=== PATIENT | female | born 1950 | race African-American/Black ===

== ENCOUNTER 2017-12-01 14:32 | Inpatient (IN) | payer MEDICARE, OTHER ==
[~2017-12-01] VITALS: Ht 162.6 cm; Wt 75.8 kg
[2017-12-01] MEDS ORDERED: NORCO 7.5-3251 EACH ORAL (14:47)
[2017-12-01] MEDS ORDERED: ASPIR 8181 MG ORAL (14:47)
[2017-12-01] MEDS ORDERED: DOCUSATE SODIU100 MG ORAL (14:47)
[2017-12-01] MEDS ORDERED: SENSIPAR30 MG ORAL (14:47)
[2017-12-01] MEDS ORDERED: BENADRYL25 MG ORAL (14:47)
[2017-12-01] MEDS ORDERED: FAMOTIDINE20 MG ORAL (14:47)
[2017-12-01] MEDS ORDERED: AMLODIPINE BESYL5 MG ORAL (14:47)
[2017-12-01] MEDS ORDERED: ACETAMINOPHEN325 M1 ORAL (14:47)
[2017-12-01] MEDS ORDERED: NEPHROVITE1 TAB ORAL (14:47)
[2017-12-01] MEDS ORDERED: METOPROLOL SUCC25 MG ORAL (14:47)
[2017-12-01] MEDS ORDERED: SIMETHICONE80 MG ORAL (14:49)
[2017-12-01] MEDS ORDERED: RENAGEL800 MG ORAL (14:49)
[2017-12-01] MEDS ORDERED: SERTRALINE HCL50 MG ORAL (14:49)
[2017-12-01] MEDS ORDERED: TRAZODONE HCL50 MG ORAL (14:49)
--- NOTE | 2017-12-01 15:08 | Emergency Room Report ---
History of Present Illness General Chief Complaint: General Complaint Source: Medical Record Present Illness HPI Mrs. Garcia is a very pleasant female with history of blindness, COPD, asthma, depression ESRD on hemodialysis Tuesday who presents with compliction of AV fistula in left upper extremity. In September AV fistula was placed at [facility]. Hemodialysis nurse was utilized to access the AV fistula only a few times for dialysis. Consequently she now has bruising pain and swelling at the area. Pain is moderate in severity. She has been obtaining dialysis through right-sided chest vascath. She did has been a resident of [facility] since July. Allergies: Coded Allergies: No Known Allergies (Unverified , 12/01/17) Patient History Social History: Reports: smoking - stopped smoking 2 years ago, alcohol use - weekend drinker lifetime Social History Narrative retired warehouse processor, children are supportive Reviewed Nursing Documentation: PMH: Agreed; PSxH: Agreed Nursing Documentation-PMH Past Medical History: No History, Except For Hx Cardiac Problems: Yes - heart failure, Anemia, PVD, legal blindess Hx Hypertension: Yes - Hyperlipidemia Hx COPD: Yes - SOB Hx Diabetes: Yes Hx Gastrointestinal Problems: Yes - Liver disease History Of Psychiatric Problem: Yes - Major depression Review of Systems Constitutional: Denies: fever, malaise Cardiovascular: Denies: chest pain Gastrointestinal: Denies: abdominal pain Musculoskeletal: Reports: muscle pain - cramps after dialysis recently; Denies : back pain All Other Systems: negative except mentioned in HPI Physical Exam Vital Signs Date Time Temp Pulse Resp B/P (MAP) Pulse Ox O2 Delivery O2 Flow Rate FiO2 12/01/17 14:29 98.3 72 16 125/72 98 Nasal Cannula 2.0 98.2 Sp02 EP Interpretation: reviewed, normal General Appearance: no apparent distress, alert, GCS 15, non-toxic Head: normocephalic, atraumatic Eyes: bilateral eye other - left dense cataract right pupil irregular nonreactive ENT: hearing grossly normal, normal pharynx, no angioedema, normal voice Neck: full range of motion, supple/symm/no masses Respiratory: chest non-tender, lungs clear, normal breath sounds, no rhonchi, no respiratory distress, no retraction, no accessory muscle use, speaking full sentences Cardiovascular #1: regular rate, rhythm, no murmur, no rub Cardiovascular #2: 2+ carotid (R), 2+ carotid (L), 2+ radial (R), 2+ radial (L) , 2+ dorsalis pedis (R), 2+ dorsalis pedis (L) Gastrointestinal: normal bowel sounds, non tender, soft, non-distended, no guarding, no rebound Rectal: deferred Musculoskeletal: normal range of motion - FROM at left elbow, swelling, other - left bicep with tense swelling but compressible, diffuse bruising, pulsative, no thrill no bruit, 2+ radial pulse MUR intact distally, patient uses left arm fluidly pulsatilve , tender Neurologic: alert, oriented x3, responsive, motor strength/tone normal, sensory intact, speech normal Psychiatric: judgement/insight normal, memory normal, mood/affect normal, no suicidal/homicidal ideation Skin: normal color, no rash, warm/dry, well hydrated Lymphatic: no adenopathy Medical Decision Making Diagnostic Impression: Primary Impression: AV fistula occlusion Additional Impression: AV fistula infection ER Course Ms. Garcia presents with AV fistula complication. I discussed case with Dr. Encinas who is highly concerned for AV fistula infection considering patient has tenderness, warmth and swelling. He requested stat duplex US with revealed surrounding hematoma. However AV fistula is not clotted. Dr. Encinas will arrange vascular surgery consultation. Labs Test 12/01/17 15:20 White Blood Count 6.9 K/UL (4.8-10.8) Red Blood Count 4.26 M/UL (4.20-5.40) Hemoglobin 13.2 G/DL (12.0-16.0) Hematocrit 39.0 % (37.0-47.0) Mean Corpuscular Volume 91 FL (80-99) Mean Corpuscular Hemoglobin 30.9 PG (27.0-31.0) Mean Corpuscular Hemoglobin Concent 33.8 G/DL (32.0-36.0) Red Cell Distribution Width 15.5 % (11.6-14.8) Platelet Count 229 K/UL (150-450) Mean Platelet Volume 5.3 FL (6.5-10.1) Neutrophils (%) (Auto) 77.1 % (45.0-75.0) Lymphocytes (%) (Auto) 14.4 % (20.0-45.0) Monocytes (%) (Auto) 5.8 % (1.0-10.0) Eosinophils (%) (Auto) 0.5 % (0.0-3.0) Basophils (%) (Auto) 2.1 % (0.0-2.0) Prothrombin Time 10.5 SEC (9.30-11.50) Prothromb Time International Ratio 1.0 (0.9-1.1) Activated Partial Thromboplast Time 30 SEC (23-33) Sodium Level 137 MMOL/L (136-145) Potassium Level 5.2 MMOL/L (3.5-5.1) Chloride Level 99 MMOL/L (98-107) Carbon Dioxide Level 30 MMOL/L (21-32) Anion Gap 8 mmol/L (5-15) Blood Urea Nitrogen 52 mg/dL (7-18) Creatinine 6.9 MG/DL (0.55-1.30) Estimat Glomerular Filtration Rate 5.9 mL/min (>60) Glucose Level 121 MG/DL (74-106) Calcium Level 7.6 MG/DL (8.5-10.1) Last Vital Signs Date Time Temp Pulse Resp B/P (MAP) Pulse Ox O2 Delivery O2 Flow Rate FiO2 12/01/17 14:29 98.3 72 16 125/72 98 Nasal Cannula 2.0 98.2 Thelma Bahena MD Dec 01, 2017 15:08
[2017-12-01 15:28] VITALS: BP 133/63
[2017-12-01] MEDS ORDERED: Vancomycin 1.5gm/D5W 250ml 250 ML IVPB ONE (15:30)
[2017-12-01 15:50] LABS: BASOPHILS % (AUTO) 2.1 % (0.0-2.0); EOSINOPHILS % (AUTO) 0.5 % (0.0-3.0); HEMOGLOBIN 13.2 G/DL (12.0-16.0); LYMPHOCYTES % (AUTO) 14.4 % (20.0-45.0); MEAN CORPUSCULAR VOLUME 91 FL (80-99); MONOCYTES % (AUTO) 5.8 % (1.0-10.0); NEUTROPHILS % (AUTO) 77.1 % (45.0-75.0); PLATELET COUNT 229 K/UL (150-450); RED BLOOD COUNT 4.26 M/UL (4.20-5.40); RED CELL DISTRIBUTION WIDTH 15.5 % (11.6-14.8); WHITE BLOOD COUNT 6.9 K/UL (4.8-10.8)
[2017-12-01 16:06] LABS: ANION GAP 8 mmol/L (5-15); BLOOD UREA NITROGEN 52 mg/dL (7-18); CALCIUM 7.6 MG/DL (8.5-10.1); CARBON DIOXIDE 30 MMOL/L (21-32); CHLORIDE 99 MMOL/L (98-107); CREATININE 6.9 MG/DL (0.55-1.30); POTASSIUM 5.2 MMOL/L (3.5-5.1); SODIUM 137 MMOL/L (136-145)
[2017-12-01] MEDS ORDERED: oxyCODONE HCL/Acetaminophen 5/325mg ORAL ONE ×2 (17:18→17:30)
[2017-12-01 17:22] VITALS: BP 126/70
[2017-12-01] MEDS ORDERED: Acetaminophen 500mg (ES) tab ORAL PRN (18:30)
[2017-12-01] MEDS ORDERED: Simethicone 80mg tab ORAL PRN (18:30)
[2017-12-01 20:00] VITALS: BP 112/56
[2017-12-01] MEDS: TraZODone 50mg tab ORAL SCH (21:13)
[2017-12-01] MEDS: NovoLOG Insulin Flexpen SUBQ SCH (21:24)
[2017-12-01] MEDS: Heparin 5000 units/ml inj SUBQ SCH (21:25)
[2017-12-01] MEDS: Albuterol/Ipratropium 3ml neb HHN PRN (21:26)
[2017-12-01] MEDS: Piperacillin/Tazobactam 2.25 GM in D5W 55 ML IVPB SCH (21:29)
[2017-12-02] VITALS: BP 125/77
[2017-12-02 04:00] VITALS: BP 136/70
[2017-12-02] MEDS: oxyCODONE HCL/Acetaminophen 5/325mg ORAL PRN ×3 (05:44→22:59)
[2017-12-02] MEDS: Piperacillin/Tazobactam 2.25 GM in D5W 55 ML IVPB SCH ×3 (05:45→22:55)
[2017-12-02] MEDS: NovoLOG Insulin Flexpen SUBQ SCH ×4 (05:46→21:00)
[2017-12-02 08:00] VITALS: BP 139/79
[2017-12-02] MEDS: Albuterol/Ipratropium 3ml neb HHN PRN ×2 (08:06→21:23)
[2017-12-02] MEDS: Sertraline 50mg tab ORAL SCH (09:00)
[2017-12-02] MEDS: Docusate 100mg cap ORAL SCH ×2 (09:00→17:30)
[2017-12-02] MEDS: Sensipar 30mg Tab ORAL SCH (09:00)
[2017-12-02] MEDS: Metoprolol Succinate XL 25mg tab ORAL SCH (09:00)
[2017-12-02] MEDS: Aspirin EC 81mg tab ORAL SCH (09:00)
[2017-12-02] MEDS: Heparin 5000 units/ml inj SUBQ SCH ×2 (09:00→21:04)
[2017-12-02] MEDS: Nephrovite tab (Rena-Vite) ORAL SCH (09:00)
--- NOTE | 2017-12-02 11:57 | Infectious Diseases Prog Note ---
Assessment/Plan Assessment/Plan Full consult to follow: A) 1) ?left arm clotted fistula, ? occlusion, ? infection 2) pmh noted 3) allergies - nkda P) 1) vancomycin and zosyn 2) vascular surgery evaluation 3) check blood cultures 4) thank you 5) d/w Huang Subjective Allergies: Coded Allergies: No Known Allergies (Unverified , 12/01/17) Objective Vital Signs Last 24 Hour Vital Signs Date Time Temp Pulse Resp B/P (MAP) Pulse Ox O2 Delivery O2 Flow Rate FiO2 12/02/17 09:00 Room Air 12/02/17 08:17 75 20 98 Nasal Cannula 2.0 28 12/02/17 08:10 Nasal Cannula 2.0 28 12/02/17 08:09 98 Nasal Cannula 2.0 28 12/02/17 08:09 65 18 Nasal Cannula 2.0 28 12/02/17 08:06 65 16 98 Nasal Cannula 2.0 28 12/02/17 08:00 97.2 78 19 139/79 (99) 99 97.2 12/02/17 04:00 97.8 19 136/70 (92) 100 97.8 12/02/17 00:00 98.3 20 125/77 (93) 100 98.3 12/01/17 21:36 81 20 99 Nasal Cannula 2.0 28 12/01/17 21:26 88 20 98 Nasal Cannula 2.0 28 12/01/17 20:27 78 18 Nasal Cannula 2.0 28 12/01/17 20:26 98 Nasal Cannula 2.0 28 12/01/17 20:26 Nasal Cannula 2.0 28 12/01/17 20:00 97.5 19 112/56 (74) 100 97.5 12/01/17 19:09 Nasal Cannula 2.0 12/01/17 17:45 98.4 12/01/17 17:40 98.4 74 16 126/70 99 Nasal Cannula 2.0 98.4 12/01/17 17:22 98.4 74 16 126/70 99 Nasal Cannula 2.0 98.4 12/01/17 15:28 98.2 88 15 133/63 98 Nasal Cannula 2.0 98.2 12/01/17 14:29 98.3 72 16 125/72 98 Nasal Cannula 2.0 98.2 Height (Feet): 5 Height (Inches): 4.00 Weight (Pounds): 160 Laboratory Tests Test 12/01/17 15:20 12/02/17 08:30 White Blood Count 6.9 K/UL (4.8-10.8) Red Blood Count 4.26 M/UL (4.20-5.40) Hemoglobin 13.2 G/DL (12.0-16.0) Hematocrit 39.0 % (37.0-47.0) Mean Corpuscular Volume 91 FL (80-99) Mean Corpuscular Hemoglobin 30.9 PG (27.0-31.0) Mean Corpuscular Hemoglobin Concent 33.8 G/DL (32.0-36.0) Red Cell Distribution Width 15.5 % (11.6-14.8) H Platelet Count 229 K/UL (150-450) Mean Platelet Volume 5.3 FL (6.5-10.1) L Neutrophils (%) (Auto) 77.1 % (45.0-75.0) H Lymphocytes (%) (Auto) 14.4 % (20.0-45.0) L Monocytes (%) (Auto) 5.8 % (1.0-10.0) Eosinophils (%) (Auto) 0.5 % (0.0-3.0) Basophils (%) (Auto) 2.1 % (0.0-2.0) H Prothrombin Time 10.5 SEC (9.30-11.50) Prothromb Time International Ratio 1.0 (0.9-1.1) Activated Partial Thromboplast Time 30 SEC (23-33) Sodium Level 137 MMOL/L (136-145) Potassium Level 5.2 MMOL/L (3.5-5.1) H Chloride Level 99 MMOL/L (98-107) Carbon Dioxide Level 30 MMOL/L (21-32) Anion Gap 8 mmol/L (5-15) Blood Urea Nitrogen 52 mg/dL (7-18) H Creatinine 6.9 MG/DL (0.55-1.30) H Estimat Glomerular Filtration Rate 5.9 mL/min (>60) Glucose Level 121 MG/DL (74-106) H Calcium Level 7.6 MG/DL (8.5-10.1) L Random Vancomycin Level 12.0 ug/mL Current Medications Medications (Trade) Dose Ordered Sig/Parmjit Route PRN Reason Start Time Stop Time Status Last Admin Dose Admin Acetaminophen (Tylenol) 650 mg Q6H PRN ORAL Mild Pain / T> 100.5 12/01/17 18:30 12/31/17 18:29 12/02/17 11:05 Albuterol/ Ipratropium (Albuterol/ Ipratropium) 3 ml Q6H PRN HHN Shortness of Breath 12/01/17 18:30 12/06/17 18:29 12/02/17 08:06 Amlodipine Besylate (Norvasc) 5 mg DAILY ORAL 12/02/17 09:00 01/01/18 08:59 Aspirin (Ecotrin) 81 mg DAILY ORAL 12/02/17 09:00 01/01/18 08:59 Cinacalcet (Sensipar) 30 mg DAILY ORAL 12/02/17 09:00 01/01/18 08:59 Dextrose (Dextrose 50%) 25 ml STAT PRN IV Hypoglycemia 12/01/17 19:00 12/31/17 18:59 Dextrose (Dextrose 50%) 50 ml STAT PRN IV Hypoglycemia 12/01/17 19:00 12/31/17 18:59 Diphenhydramine HCl (Benadryl) 25 mg Q6H PRN ORAL Itching 12/01/17 18:30 12/31/17 18:29 12/01/17 21:26 Docusate Sodium (Colace) 100 mg TWICE A DAY ORAL 12/02/17 09:00 01/01/18 08:59 Famotidine (Pepcid) 20 mg DAILY ORAL 12/02/17 09:00 01/01/18 08:59 Heparin Sodium (Porcine) (Heparin 5000 units/ml) 5,000 units EVERY 12 HOURS SUBQ 12/01/17 21:00 12/31/17 20:59 12/01/17 21:25 Heparin Sodium (Porcine) (Heparin Sod 1000 units/ml 10ml) 500 unit ONCE PRN IV DIALYSIS 12/02/17 18:15 12/02/17 23:59 Heparin Sodium (Porcine) (Heparin) 1,000 unit POSTHD INJ 12/02/17 18:15 12/02/17 23:59 Insulin Aspart (NovoLOG) BEFORE MEALS AND HS SUBQ 12/01/17 21:00 12/31/17 20:59 12/01/17 21:24 Metoprolol Succinate (Toprol XL) 25 mg DAILY ORAL 12/02/17 09:00 01/01/18 08:59 Oxycodone/ Acetaminophen (Percocet 5-325) 1 tab Q6H PRN ORAL PAIN 4-10 12/01/17 19:00 12/08/17 18:59 12/02/17 05:44 Piperacillin Sod/ Tazobactam Sod 2.25 gm/Dextrose 55 ml @ 110 mls/hr Q8HR IVPB 12/01/17 20:00 12/08/17 19:59 12/02/17 05:45 Sertraline HCl (Zoloft) 50 mg DAILY ORAL 12/02/17 09:00 01/01/18 08:59 Simethicone (Mylicon) 80 mg Q8H PRN ORAL GAS PAIN 12/01/17 18:30 12/31/17 18:29 Sodium Chloride 1,000 ml @ 500 mls/hr Q2H PRN IVLG sbp<90 during hd 12/02/17 18:14 12/02/17 23:59 Trazodone HCl (Desyrel) 50 mg BEDTIME ORAL 12/01/17 21:00 12/31/17 20:59 12/01/17 21:13 Vancomycin HCl (Vanco rx to dose) 1 ea DAILY PRN MISC Per rx protocol 12/01/17 18:30 12/31/17 18:29 Vitamin B Complex/ Vit C/Folic Acid (Nephrovite) 1 tab DAILY ORAL 12/02/17 09:00 01/01/18 08:59 Mynor Esteves MD Dec 02, 2017 11:57
[2017-12-02 12:00] VITALS: BP 136/77
[2017-12-02] MEDS ORDERED: Vancomycin 1gm in D5W 275ml IVPB ONE (14:00)
--- NOTE | 2017-12-02 15:45 | History and Physical Report ---
DATE OF ADMISSION: 12/01/2017 CHIEF COMPLAINT: Painful left upper arm. HISTORY OF PRESENT ILLNESS: This is an unfortunate 67-year-old female on dialysis. The patient has left upper arm AV fistula that has hematoma. During the last several weeks, the patient's hematoma has increased in size and became extremely painful and tender to touch. The patient is admitted for further evaluation and management. She had already ultrasound duplex done in the emergency department revealing huge hematoma and suspected infection of that site. PAST MEDICAL HISTORY: 1. End-stage renal failure due to diabetic nephropathy. 2. Blindness due to diabetic retinopathy. 3. Hypertensive cardiovascular disease. 4. COPD. 5. Congestive heart failure. 6. Anemia of chronic kidney disease. 7. Recurrent ascites due to alcoholic liver cirrhosis. MEDICATIONS: Tylenol p.r.n., amlodipine, baby aspirin, Sensipar, Benadryl p.r.n., sodium docusate, DuoNeb inhalation, famotidine, insulin sliding scale, metoprolol XL, Nephro-Melinda, Percocet, simethicone p.r.n., Zoloft, and trazodone. ALLERGIES: None reported. FAMILY HISTORY: Unremarkable. SOCIAL HISTORY: She lives in a shelter. HABITS: She is nonsmoker and nondrinker. There is no history of illicit drug abuse. REVIEW OF SYSTEMS: HEENT: She is blind. ENDOCRINE: Significant for multiorgan type 2 diabetes mellitus with diabetic retinopathy, nephropathy, neuropathy, and gastropathy. She also has severe secondary hyperparathyroidism. NEUROLOGIC: No history of stroke or syncope. CARDIAC: She has history of congestive heart failure. PHYSICAL EXAMINATION: GENERAL: This is an elderly pleasant female, who is in no acute distress. VITAL SIGNS: Blood pressure 150/70, pulse 80 and regular, respirations 20, and temperature 97.8. HEENT: The head is normocephalic and atraumatic. She is blind. NECK: Supple. Trachea midline. There was no lymphadenopathy or thyromegaly. LUNGS: Bilateral wheezes. HEART: Regular rate and rhythm without rubs, murmurs, or gallops. CHEST: She has right-sided internal jugular PermCath. ABDOMEN: She has some fullness and suspected ascites. She has hepatomegaly. EXTREMITIES: No clubbing, cyanosis, or edema. The left upper arm AV fistula a huge hematoma tender to touch. There is a thrill and bruit. NEUROLOGIC: She is alert and oriented x4. Cranial nerves II through XII intact except the optic nerve. LABORATORY AND ANCILLARY DATA: CBC within normal limits. Chemistry, BUN 52 and creatinine 6.9, potassium yesterday 5.2, and sodium 137. ASSESSMENT: 1. Infected large a hematoma below the patient's AV fistula causing a pushup of the patient's fistula in the arterial anastomosis narrowing, close to choking. 2. End-stage renal failure due to diabetic nephropathy. 3. Blindness due to diabetic retinopathy. 4. Hypertensive cardiovascular disease. 5. COPD. 6. Congestive heart failure. 7. Anemia of chronic kidney disease. 8. Recurrent ascites due to alcoholic liver cirrhosis. PLAN: 1. IV antibiotics. 2. Vascular surgery consult, the patient most likely needs drainage of the hematoma. 3. Hemodialysis to be done on the patient's schedule, which is Tuesday, Tuesday, and Tuesday. 4. Pain control. 5. Drainage of the ascites, which the patient does have ascites. Madison Sifuentes M.D. DR: GENOVEVA JOB#: [id number] CC:
[2017-12-02 16:00] VITALS: BP 137/79
[2017-12-02] MEDS ORDERED: Sertraline 50mg tab ORAL SCH (17:30)
[2017-12-02] MEDS ORDERED: Heparin Sod 1000 units/ml 10ml IV PRN (18:15)
[2017-12-02] MEDS ORDERED: Heparin 1000 units/ml 1ml Vial INJ SCH (18:15)
[2017-12-02 20:00] VITALS: BP 149/80
[2017-12-02] MEDS: TraZODone 50mg tab ORAL SCH (20:59)
[2017-12-03] VITALS: BP 134/68
--- NOTE | 2017-12-03 01:54 | General Progress Note ---
Progress Note Progress Note All noted Patient seen and examined ESRD on HD DM HTN Blindness Left arm avf large hematoma--from access site extravasation--looks much improved compared to last wk + thrill/ skin c/d/i/ + radial pulse/ no forearm edema Autogenous basilic vein transposition fistula & no artificial graft Right chest permcath c/d/i No fever and nl wbc Rec Rest left arm avf 3wks then will do fistulogram AVF duplex eval for pseudo Ice pack prn over hematoma HD via permcath Ok for discharge per vascular point and will f/u as outpt d/w pt at length d/w nurse at bedside d/w pmd Amarjit Dyson MD Dec 03, 2017 01:54
[2017-12-03 04:00] VITALS: BP 133/71
[2017-12-03] MEDS: Piperacillin/Tazobactam 2.25 GM in D5W 55 ML IVPB SCH ×3 (05:57→21:19)
[2017-12-03] MEDS: NovoLOG Insulin Flexpen SUBQ SCH ×4 (06:30→21:00)
[2017-12-03] MEDS ORDERED: cefTRIAXone 1 GM in D5W 55 ML IVPB SCH (06:45)
[2017-12-03 08:00] VITALS: BP 135/80
[2017-12-03] MEDS: oxyCODONE HCL/Acetaminophen 5/325mg ORAL PRN ×2 (08:31→21:19)
[2017-12-03] MEDS: Sertraline 50mg tab ORAL SCH (08:31)
[2017-12-03] MEDS: Aspirin EC 81mg tab ORAL SCH (08:31)
[2017-12-03] MEDS: Metoprolol Succinate XL 25mg tab ORAL SCH (08:31)
[2017-12-03] MEDS: Nephrovite tab (Rena-Vite) ORAL SCH (08:31)
[2017-12-03] MEDS: Sensipar 30mg Tab ORAL SCH (08:32)
[2017-12-03] MEDS: Docusate 100mg cap ORAL SCH ×2 (08:32→18:52)
[2017-12-03] MEDS: Heparin 5000 units/ml inj SUBQ SCH ×2 (08:41→21:15)
[2017-12-03 08:48] LABS: BASOPHILS % (AUTO) 1.5 % (0.0-2.0); EOSINOPHILS % (AUTO) 3.4 % (0.0-3.0); HEMATOCRIT 39.1 % (37.0-47.0); HEMOGLOBIN 12.9 G/DL (12.0-16.0); LYMPHOCYTES % (AUTO) 39.5 % (20.0-45.0); MEAN CORPUSCULAR VOLUME 92 FL (80-99); MONOCYTES % (AUTO) 10.2 % (1.0-10.0); NEUTROPHILS % (AUTO) 45.5 % (45.0-75.0); PLATELET COUNT 203 K/UL (150-450); RED BLOOD COUNT 4.26 M/UL (4.20-5.40); WHITE BLOOD COUNT 6.7 K/UL (4.8-10.8)
[2017-12-03] MEDS ORDERED: Heparin 5000 units/ml inj SUBQ SCH (09:00)
[2017-12-03 09:12] LABS: ALANINE AMINOTRANSFERASE 81 U/L (12-78); ALBUMIN 2.8 G/DL (3.4-5.0); ALBUMIN/GLOBULIN RATIO 0.7 (1.0-2.7); ALKALINE PHOSPHATASE 81 U/L (46-116); ANION GAP 16 mmol/L (5-15); ASPARTATE AMINO TRANSFERASE 75 U/L (15-37); BILIRUBIN,TOTAL 0.4 MG/DL (0.2-1.0); BLOOD UREA NITROGEN 60 mg/dL (7-18); CALCIUM 7.8 MG/DL (8.5-10.1); CARBON DIOXIDE 20 MMOL/L (21-32); CHLORIDE 97 MMOL/L (98-107); CREATININE 7.5 MG/DL (0.55-1.30); POTASSIUM 5.7 MMOL/L (3.5-5.1); SODIUM 133 MMOL/L (136-145)
--- NOTE | 2017-12-03 11:00 | Nephrology Progress Note ---
Assessment/Plan Plan Duplex scan now shows the hematoma much bigger. DW Dr. Dyson - "nothing to do". I would keep her another 24 h. BC results are preliminarily negative. Last HD yesterday. Her K already 5.7 despite HD yesterday. m/p resoption of the K from hematoma. May need repeat HD tomorrow. Check Labs tomorrow. Subjective Subjective No c/o Objective Objective Last 24 Hour Vital Signs Date Time Temp Pulse Resp B/P (MAP) Pulse Ox O2 Delivery O2 Flow Rate FiO2 12/03/17 09:00 Room Air 12/03/17 08:31 87 135/80 12/03/17 08:31 87 135/80 12/03/17 08:00 97.3 87 18 135/80 (98) 97 97.3 12/03/17 04:00 97.5 72 19 133/71 (91) 100 97.5 12/03/17 00:00 97.8 81 19 134/68 (90) 100 97.8 12/02/17 23:29 98.3 12/02/17 22:59 98.3 12/02/17 21:22 79 20 98 Nasal Cannula 2.0 28 12/02/17 21:14 78 18 98 Nasal Cannula 2.0 28 12/02/17 21:00 Room Air 12/02/17 20:00 98.3 74 19 149/80 (103) 100 98.3 12/02/17 19:02 98 Nasal Cannula 2.0 28 12/02/17 19:02 67 18 Nasal Cannula 2.0 28 12/02/17 19:02 Nasal Cannula 2.0 28 12/02/17 16:00 97.7 77 19 137/79 (98) 100 97.7 12/02/17 12:00 97.3 78 20 136/77 (96) 100 97.3 Intake and Output 12/02/17 12/03/17 19:00 07:00 Intake Total 1080 ml 55 ml Balance 1080 ml 55 ml Intake Oral 1080 ml IV Total 55 ml # Voids 3 Laboratory Tests 12/03/17 07:05: White Blood Count 6.7, Red Blood Count 4.26, Hemoglobin 12.9, Hematocrit 39.1, Mean Corpuscular Volume 92, Mean Corpuscular Hemoglobin 30.3, Mean Corpuscular Hemoglobin Concent 33.0, Red Cell Distribution Width 15.0H, Platelet Count 203, Mean Platelet Volume 5.4L, Neutrophils (%) (Auto) 45.5, Lymphocytes (%) (Auto) 39.5, Monocytes (%) (Auto) 10.2H, Eosinophils (%) (Auto) 3.4H, Basophils (%) ( Auto) 1.5, Sodium Level 133L, Potassium Level 5.7H, Chloride Level 97L, Carbon Dioxide Level 20L, Anion Gap 16H, Blood Urea Nitrogen 60H, Creatinine 7.5H, Estimat Glomerular Filtration Rate 6.5, Glucose Level 76, Calcium Level 7.8L, Total Bilirubin 0.4, Aspartate Amino Transf (AST/SGOT) 75H, Alanine Aminotransferase (ALT/SGPT) 81H, Alkaline Phosphatase 81, Total Protein 7.1, Albumin 2.8L, Globulin 4.3, Albumin/Globulin Ratio 0.7L Height (Feet): 5 Height (Inches): 4.00 Weight (Pounds): 162 Objective Blind CV RR Lungs CTa Abd SNT BS + E IKE Hematoma exquisitely tender Madison Sifuentes MD Dec 03, 2017 10:59
[2017-12-03] MEDS: Albuterol/Ipratropium 3ml neb HHN PRN ×2 (11:44→20:35)
[2017-12-03 12:00] VITALS: BP 128/78
[2017-12-03 15:59] VITALS: BP 127/69
[2017-12-03] MEDS: Acetaminophen 500mg (ES) tab ORAL PRN (16:49)
--- NOTE | 2017-12-03 16:56 | Infectious Diseases Prog Note ---
Assessment/Plan Assessment/Plan Full consult to follow: A) 1) ? left arm infected hematoma/fistula/cellulitis ?left arm clotted fistula , ? occlusion, 2) pmh noted 3) allergies - nkda P) 1) vancomycin and zosyn 2) vascular surgery evaluation 3) check blood cultures final, negative so far 4) will f/u Subjective Constitutional: Denies: fever HEENT: Denies: congestion Cardiovascular: Denies: chest pain Gastrointestinal/Abdominal: Denies: nausea, vomiting Neurologic: Denies: headache Psychiatric: Denies: depression Skin: Denies: rash Allergies: Coded Allergies: No Known Allergies (Unverified , 12/01/17) Objective Vital Signs Last 24 Hour Vital Signs Date Time Temp Pulse Resp B/P (MAP) Pulse Ox O2 Delivery O2 Flow Rate FiO2 12/03/17 15:59 97.3 79 20 127/69 (88) 99 97.3 12/03/17 12:00 98.2 74 20 128/78 (95) 99 98.2 12/03/17 11:46 76 20 99 Nasal Cannula 2.0 28 12/03/17 11:46 74 20 99 Nasal Cannula 2.0 28 12/03/17 11:45 74 20 Nasal Cannula 2.0 28 12/03/17 11:45 98 Nasal Cannula 2.0 28 12/03/17 11:45 Nasal Cannula 2.0 28 12/03/17 09:00 Room Air 12/03/17 08:31 87 135/80 12/03/17 08:31 87 135/80 12/03/17 08:00 97.3 87 18 135/80 (98) 97 97.3 12/03/17 04:00 97.5 72 19 133/71 (91) 100 97.5 12/03/17 00:00 97.8 81 19 134/68 (90) 100 97.8 12/02/17 23:29 98.3 12/02/17 22:59 98.3 12/02/17 21:22 79 20 98 Nasal Cannula 2.0 28 12/02/17 21:14 78 18 98 Nasal Cannula 2.0 28 12/02/17 21:00 Room Air 12/02/17 20:00 98.3 74 19 149/80 (103) 100 98.3 12/02/17 19:02 98 Nasal Cannula 2.0 28 12/02/17 19:02 67 18 Nasal Cannula 2.0 28 12/02/17 19:02 Nasal Cannula 2.0 28 Height (Feet): 5 Height (Inches): 4.00 Weight (Pounds): 165 General Appearance: no acute distress HEENT: normocephalic, atraumatic, anicteric, mucous membranes moist Respiratory/Chest: lungs clear, normal breath sounds, no respiratory distress Cardiovascular: normal rate, regular rhythm, no gallop/murmur Abdomen: normal bowel sounds, soft, non tender, no organomegaly Extremities: other - left arm pain at fistula site with warmth Microbiology Date/Time Source Procedure Growth Status 12/01/17 15:30 Blood Blood Culture - Preliminary NO GROWTH AFTER 24 HOURS Resulted 12/01/17 15:20 Blood Blood Culture - Preliminary NO GROWTH AFTER 24 HOURS Resulted 12/01/17 16:00 Nasal Nares MRSA Culture - Final NO METHICILLIN RESISTANT STAPH AUREUS... Complete 12/01/17 16:00 Rectum VRE Culture - Final Enterococcus Faecalis - Vre Complete 12/01/17 16:00 Rectum - Final NO CARBAPENEM-RESISTANT ENTEROBACTERI... Complete Laboratory Tests Test 12/03/17 07:05 White Blood Count 6.7 K/UL (4.8-10.8) Red Blood Count 4.26 M/UL (4.20-5.40) Hemoglobin 12.9 G/DL (12.0-16.0) Hematocrit 39.1 % (37.0-47.0) Mean Corpuscular Volume 92 FL (80-99) Mean Corpuscular Hemoglobin 30.3 PG (27.0-31.0) Mean Corpuscular Hemoglobin Concent 33.0 G/DL (32.0-36.0) Red Cell Distribution Width 15.0 % (11.6-14.8) H Platelet Count 203 K/UL (150-450) Mean Platelet Volume 5.4 FL (6.5-10.1) L Neutrophils (%) (Auto) 45.5 % (45.0-75.0) Lymphocytes (%) (Auto) 39.5 % (20.0-45.0) Monocytes (%) (Auto) 10.2 % (1.0-10.0) H Eosinophils (%) (Auto) 3.4 % (0.0-3.0) H Basophils (%) (Auto) 1.5 % (0.0-2.0) Sodium Level 133 MMOL/L (136-145) L Potassium Level 5.7 MMOL/L (3.5-5.1) H Chloride Level 97 MMOL/L (98-107) L Carbon Dioxide Level 20 MMOL/L (21-32) L Anion Gap 16 mmol/L (5-15) H Blood Urea Nitrogen 60 mg/dL (7-18) H Creatinine 7.5 MG/DL (0.55-1.30) H Estimat Glomerular Filtration Rate 6.5 mL/min (>60) Glucose Level 76 MG/DL (74-106) Calcium Level 7.8 MG/DL (8.5-10.1) L Total Bilirubin 0.4 MG/DL (0.2-1.0) Aspartate Amino Transf (AST/SGOT) 75 U/L (15-37) H Alanine Aminotransferase (ALT/SGPT) 81 U/L (12-78) H Alkaline Phosphatase 81 U/L (46-116) Total Protein 7.1 G/DL (6.4-8.2) Albumin 2.8 G/DL (3.4-5.0) L Globulin 4.3 g/dL Albumin/Globulin Ratio 0.7 (1.0-2.7) L Current Medications Medications (Trade) Dose Ordered Sig/Parmjit Route PRN Reason Start Time Stop Time Status Last Admin Dose Admin Acetaminophen (Tylenol) 500 mg Q6H PRN ORAL Mild Pain/Temp > 100.5 12/03/17 08:00 01/02/18 07:59 12/03/17 16:49 Albuterol/ Ipratropium (Albuterol/ Ipratropium) 3 ml Q6H PRN HHN Shortness of Breath 12/01/17 18:30 12/06/17 18:29 12/03/17 11:44 Amlodipine Besylate (Norvasc) 5 mg DAILY ORAL 12/02/17 09:00 01/01/18 08:59 12/03/17 08:31 Aspirin (Ecotrin) 81 mg DAILY ORAL 12/02/17 09:00 01/01/18 08:59 12/03/17 08:31 Cinacalcet (Sensipar) 30 mg DAILY ORAL 12/02/17 09:00 01/01/18 08:59 12/03/17 08:32 Dextrose (Dextrose 50%) 25 ml STAT PRN IV Hypoglycemia 12/01/17 19:00 12/31/17 18:59 Dextrose (Dextrose 50%) 50 ml STAT PRN IV Hypoglycemia 12/01/17 19:00 12/31/17 18:59 Diphenhydramine HCl (Benadryl) 25 mg Q6H PRN ORAL Itching 12/01/17 18:30 12/31/17 18:29 12/03/17 08:30 Docusate Sodium (Colace) 100 mg TWICE A DAY ORAL 12/02/17 09:00 01/01/18 08:59 12/03/17 08:32 Famotidine (Pepcid) 20 mg DAILY ORAL 12/02/17 09:00 01/01/18 08:59 12/03/17 08:31 Heparin Sodium (Porcine) (Heparin 5000 units/ml) 5,000 units EVERY 12 HOURS SUBQ 12/03/17 09:00 01/02/18 08:59 12/03/17 08:41 Heparin Sodium (Porcine) (Heparin Sod 1000 units/ml 10ml) 500 unit ONCE PRN IV for HD use 12/04/17 06:00 12/04/17 23:59 Heparin Sodium (Porcine) (Heparin) 1,000 unit POSTHD PRN INJ for dialysis use 12/04/17 06:00 12/04/17 23:59 Insulin Aspart (NovoLOG) BEFORE MEALS AND HS SUBQ 12/01/17 21:00 12/31/17 20:59 12/01/17 21:24 Metoprolol Succinate (Toprol XL) 25 mg DAILY ORAL 12/02/17 09:00 01/01/18 08:59 12/03/17 08:31 Oxycodone/ Acetaminophen (Percocet 5-325) 1 tab Q6H PRN ORAL PAIN 4-10 12/01/17 19:00 12/08/17 18:59 12/03/17 08:31 Piperacillin Sod/ Tazobactam Sod 2.25 gm/Dextrose 55 ml @ 110 mls/hr Q8HR IVPB 12/01/17 20:00 12/08/17 19:59 12/03/17 14:30 Sertraline HCl (Zoloft) 50 mg DAILY ORAL 12/02/17 09:00 01/01/18 08:59 12/03/17 08:31 Simethicone (Mylicon) 80 mg Q8H PRN ORAL GAS PAIN 12/01/17 18:30 12/31/17 18:29 Sodium Chloride 1,000 ml @ 500 mls/hr Q2H PRN IVLG sbp<90 during hd 12/04/17 06:00 12/04/17 23:59 Trazodone HCl (Desyrel) 50 mg BEDTIME ORAL 12/01/17 21:00 12/31/17 20:59 12/02/17 20:59 Vancomycin HCl (Vanco rx to dose) 1 ea DAILY PRN MISC Per rx protocol 12/01/17 18:30 12/31/17 18:29 Vitamin B Complex/ Vit C/Folic Acid (Nephrovite) 1 tab DAILY ORAL 12/02/17 09:00 01/01/18 08:59 12/03/17 08:31 Mynor Esteves MD Dec 03, 2017 16:56
[2017-12-03] MEDS ORDERED: Milk of Magnesia 30ml Ud ORAL PRN (17:45)
[2017-12-03] MEDS ORDERED: Tubing IV Secondary IV ONE (18:38)
[2017-12-03 20:00] VITALS: BP 118/65
--- NOTE | 2017-12-03 20:45 | Consultation ---
DATE OF CONSULTATION: 12/03/2017 INFECTIOUS DISEASES CONSULTATION CONSULTING PHYSICIAN: Mynor Esteves M.D. ATTENDING PHYSICIAN: Madison Sifuentes M.D. REASON FOR CONSULTATION: Possible left arm infected hematoma/fistula infection and cellulitis. CHIEF COMPLAINT: The patient's chief complaint coming into the hospital is left arm pain and clotted fistula. HISTORY OF PRESENT ILLNESS: This is a very pleasant 67-year-old female, who comes in to [facility] with left arm pain. The patient has a hematoma that increased in size. Questionable if the patient has an infected hematoma, it is unclear if the fistula is infected with possible cellulitis and infected arm. Infectious Diseases consultation requested. The patient is on vancomycin and Zosyn. Blood cultures are negative today. Vascular surgery has also been consulted at this time. Hematoma seems much improved versus last week and conservative management for now. Blood culture are negative today. The patient will be continued on vancomycin and Zosyn. MAR was noted. Orders were noted. Notes were reviewed. REVIEW OF SYSTEMS: CONSTITUTIONAL: The patient has generalized fatigue. No focal weakness. She has left arm pain. She has no fever or chills. No night sweats or weight loss. HEAD AND NECK: No head pain, neck pain, thrush, dysphagia, sinus tenderness, neck stiffness. CARDIAC: No chest pain or palpitations. GASTROINTESTINAL: No nausea, vomiting, or diarrhea. GENITOURINARY: She is on hemodialysis, left arm fistula. No CVA tenderness. PULMONARY: No congestion, shortness of breath, hemoptysis, or secretions. SKIN: No rash. EXTREMITIES: She has left arm pain. NEUROLOGIC: No seizures PAST MEDICAL HISTORY: The patient's past medical history includes history of the following. The patient has past medical history of end-stage renal disease on hemodialysis, history of diabetic nephropathy, history of blindness, history of diabetic retinopathy, history of hypertension, history of hypertensive cardiovascular disease, history of COPD, CHF, anemia, history of recurrent ascites due to alcoholic liver cirrhosis, history of cirrhosis, history of left arm hematoma, history of diabetes and hypertension. MEDICATIONS: Upon the reviewing the MAR, she is on following medications. She is on heparin, acetaminophen, amlodipine, aspirin, docusate, famotidine, metoprolol, sertraline, vancomycin, Zosyn, trazodone, insulin, diphenhydramine, albuterol, vancomycin, Mylicon, Norvasc or amlodipine, aspirin. Antibiotics, vancomycin and Zosyn. Outside medications noted and reconciliated. ALLERGIES: No known drug allergies. No antibiotic allergies. SOCIAL HISTORY: Negative for smoking, alcohol, or drug abuse at this time. FAMILY HISTORY: Noncontributory. Negative for exposure to tuberculosis or cancer. PHYSICAL EXAMINATION: VITAL SIGNS: Temperature 97.3, pulse rate 79, respiratory rate 20, blood pressure is 127/69, and saturation 99%. GENERAL: Alert and responsive, no acute distress. HEAD AND NECK: Oral exam, no thrush. Eye exam, no icterus. Neck is supple. No JVD. Normocephalic. LUNGS: Clear bilaterally. No rhonchi or rales HEART: Regular. No gallop or murmur. ABDOMEN: Soft. Positive bowel sounds. Nontender. SKIN: No rash. MUSCULOSKELETAL: No effusions. Legs are without cellulitis. PERIPHERAL VASCULAR: No cyanosis or gangrene. GENITOURINARY: No Kamara. LINES: Line sites without phlebitis. Left arm has warmth, swelling, pain on palpation of the left arm fistula site. LABORATORY AND DIAGNOSTIC DATA: White count 6.7, hemoglobin 12.9. Creatinine 7.5. LFTs were noted. Blood cultures are negative to date at 24 hours, this is a preliminary result. VRE screen is positive. Imaging studies are pending, results are pending at this time. Blood cultures are negative to date. VRE swab is positive. ASSESSMENT AND PLAN: 1. The patient has left arm hematoma, has pain, rule out infected hematoma adjacent to fistula, rule out infected fistula, rule out cellulitis of the left arm. Continue vancomycin and Zosyn for MRSA gram-negative coverage for possible left arm infected hematoma, fistula infection, and cellulitis. The patient is being followed by Vascular Surgery. We will followup blood cultures. Vascular Surgery follow up. Case was discussed with Dr. Machado. Continue vancomycin and Zosyn for now, pending results. Check final blood cultures and laboratories. 2. The patient has end-stage renal disease, on hemodialysis. 3. Diabetes with retinopathy and nephropathy. 4. Hypertension with hypertensive cardiovascular disease. 5. COPD. 6. CHF. 7. Anemia of chronic kidney disease. 8. Recurrent ascites. 9. Alcoholic liver cirrhosis. 10. Past medical history noted. 11. No known drug allergies. 12. Social history at this time is negative for smoking, alcohol, or drug abuse. 13. Family history at this time is negative for exposure to tuberculosis or cancer, unremarkable. 14. MAR was noted. 15. Case discussed with RN. 16. Case discussed with Dr. Sifuentes. 17. Case discussed with the patient. 18. Continue treatment with primary consultants. 19. Notes and records were noted. 20. Orders were entered. Mynor Esteves M.D. DR: Vijay JOB#: [id number] CC: CHERYL
[2017-12-03] MEDS: TraZODone 50mg tab ORAL SCH (21:05)
[2017-12-04] VITALS: BP 130/60
[2017-12-04 04:00] VITALS: BP 120/65
[2017-12-04] MEDS: Piperacillin/Tazobactam 2.25 GM in D5W 55 ML IVPB SCH ×2 (05:08→17:44)
[2017-12-04] MEDS ORDERED: Heparin 1000 units/ml 1ml Vial INJ PRN (06:00)
[2017-12-04] MEDS ORDERED: Heparin Sod 1000 units/ml 10ml IV PRN (06:00)
[2017-12-04] MEDS: NovoLOG Insulin Flexpen SUBQ SCH ×4 (06:30→21:00)
[2017-12-04 07:09] LABS: BASOPHILS % (AUTO) 1.8 % (0.0-2.0); HEMATOCRIT 36.5 % (37.0-47.0); HEMOGLOBIN 11.8 G/DL (12.0-16.0); LYMPHOCYTES % (AUTO) 32.5 % (20.0-45.0); MEAN CORPUSCULAR VOLUME 92 FL (80-99); MONOCYTES % (AUTO) 13.1 % (1.0-10.0); NEUTROPHILS % (AUTO) 49.7 % (45.0-75.0); PLATELET COUNT 189 K/UL (150-450); RED BLOOD COUNT 3.99 M/UL (4.20-5.40); RED CELL DISTRIBUTION WIDTH 14.8 % (11.6-14.8)
[2017-12-04 08:00] VITALS: BP 115/54
[2017-12-04] MEDS: Nephrovite tab (Rena-Vite) ORAL SCH (08:39)
[2017-12-04] MEDS: Sensipar 30mg Tab ORAL SCH (08:39)
[2017-12-04] MEDS: oxyCODONE HCL/Acetaminophen 5/325mg ORAL PRN (08:40)
[2017-12-04] MEDS: Sertraline 50mg tab ORAL SCH (08:40)
[2017-12-04] MEDS: Aspirin EC 81mg tab ORAL SCH (08:40)
[2017-12-04] MEDS: Heparin 5000 units/ml inj SUBQ SCH ×2 (08:41→21:14)
[2017-12-04] MEDS: Docusate 100mg cap ORAL SCH ×2 (08:42→17:06)
[2017-12-04] MEDS: Metoprolol Succinate XL 25mg tab ORAL SCH (08:55)
--- NOTE | 2017-12-04 10:08 | Nephrology Progress Note ---
Assessment/Plan Plan Duplex scan now shows the hematoma much bigger. DW Dr. Dyson - not impressed. I would keep her another 24 h. BC results are preliminarily negative. Last HD yesterday. Her K already 5.7 despite HD yesterday. m/p resoption of the K from hematoma. May need repeat HD tomorrow. K 7.1 today!! Getting stat HD Subjective Subjective c/o Nausea!!! Objective Objective Last 24 Hour Vital Signs Date Time Temp Pulse Resp B/P (MAP) Pulse Ox O2 Delivery O2 Flow Rate FiO2 12/04/17 09:00 Room Air 12/04/17 08:55 79 115/54 12/04/17 08:54 79 115/54 12/04/17 07:39 78 18 Nasal Cannula 2.0 28 12/04/17 07:38 96 Nasal Cannula 2.0 28 12/04/17 07:37 Nasal Cannula 2.0 28 12/04/17 04:30 98.9 98.9 12/04/17 04:00 100.9 79 20 120/65 (83) 98 100.9 12/04/17 00:00 97.7 85 19 130/60 (83) 100 97.7 12/03/17 21:49 99.5 12/03/17 21:19 99.5 12/03/17 20:51 Room Air 12/03/17 20:45 83 20 99 Nasal Cannula 2.0 28 12/03/17 20:35 99 Nasal Cannula 2.0 28 12/03/17 20:35 Nasal Cannula 2.0 28 12/03/17 20:35 82 18 Nasal Cannula 2.0 28 12/03/17 20:35 81 18 99 Nasal Cannula 2.0 28 12/03/17 20:00 99.5 78 19 118/65 (82) 100 99.5 12/03/17 15:59 97.3 79 20 127/69 (88) 99 97.3 12/03/17 12:00 98.2 74 20 128/78 (95) 99 98.2 12/03/17 11:46 76 20 99 Nasal Cannula 2.0 28 12/03/17 11:46 74 20 99 Nasal Cannula 2.0 28 12/03/17 11:45 74 20 Nasal Cannula 2.0 28 12/03/17 11:45 98 Nasal Cannula 2.0 28 12/03/17 11:45 Nasal Cannula 2.0 28 Intake and Output 12/03/17 12/04/17 19:00 07:00 Intake Total 840 ml 355 ml Balance 840 ml 355 ml Intake Oral 840 ml 300 ml IV Total 55 ml # Voids 2 2 # Bowel Movements 2 Laboratory Tests 12/04/17 06:15: White Blood Count 7.0, Red Blood Count 3.99L, Hemoglobin 11.8L, Hematocrit 36.5L , Mean Corpuscular Volume 92, Mean Corpuscular Hemoglobin 29.5, Mean Corpuscular Hemoglobin Concent 32.2, Red Cell Distribution Width 14.8, Platelet Count 189, Mean Platelet Volume 5.8L, Neutrophils (%) (Auto) 49.7, Lymphocytes ( %) (Auto) 32.5, Monocytes (%) (Auto) 13.1H, Eosinophils (%) (Auto) 3.0, Basophils (%) (Auto) 1.8 Height (Feet): 5 Height (Inches): 4.00 Weight (Pounds): 165 Objective Blind CV RR Lungs CTa Abd SNT BS + E IKE Hematoma exquisitely tender Madison Sifuentes MD Dec 04, 2017 10:08
[2017-12-04 10:47] LABS: ANION GAP 11 mmol/L (5-15); BLOOD UREA NITROGEN 78 mg/dL (7-18); CALCIUM 7.6 MG/DL (8.5-10.1); CARBON DIOXIDE 23 MMOL/L (21-32); CHLORIDE 96 MMOL/L (98-107); CREATININE 8.7 MG/DL (0.55-1.30); SODIUM 130 MMOL/L (136-145)
[2017-12-04 10:48] LABS: POTASSIUM 6.5 MMOL/L (3.5-5.1)
[2017-12-04 12:00] VITALS: BP 122/67
[2017-12-04 16:00] VITALS: BP 126/69
[2017-12-04 20:00] VITALS: BP 136/74
[2017-12-04] MEDS: TraZODone 50mg tab ORAL SCH (21:13)
[2017-12-05] VITALS: BP 128/76
[2017-12-05 04:00] VITALS: BP 131/69
[2017-12-05] MEDS: Piperacillin/Tazobactam 2.25 GM in D5W 55 ML IVPB SCH (04:59)
[2017-12-05] MEDS: oxyCODONE HCL/Acetaminophen 5/325mg ORAL PRN ×3 (05:08→21:46)
[2017-12-05] MEDS: NovoLOG Insulin Flexpen SUBQ SCH ×4 (06:17→21:00)
[2017-12-05 06:27] LABS: BASOPHILS % (AUTO) 2.1 % (0.0-2.0); EOSINOPHILS % (AUTO) 3.6 % (0.0-3.0); HEMATOCRIT 37.5 % (37.0-47.0); LYMPHOCYTES % (AUTO) 28.9 % (20.0-45.0); MEAN CORPUSCULAR VOLUME 91 FL (80-99); MONOCYTES % (AUTO) 13.5 % (1.0-10.0); NEUTROPHILS % (AUTO) 51.9 % (45.0-75.0); PLATELET COUNT 158 K/UL (150-450); WHITE BLOOD COUNT 6.2 K/UL (4.8-10.8)
[2017-12-05 06:43] LABS: ANION GAP 11 mmol/L (5-15); BLOOD UREA NITROGEN 65 mg/dL (7-18); CALCIUM 8.1 MG/DL (8.5-10.1); CARBON DIOXIDE 23 MMOL/L (21-32); CHLORIDE 96 MMOL/L (98-107); CREATININE 7.9 MG/DL (0.55-1.30); SODIUM 130 MMOL/L (136-145)
[2017-12-05 06:47] LABS: POTASSIUM 6.1 MMOL/L (3.5-5.1)
[2017-12-05 08:00] VITALS: BP 129/73
[2017-12-05] MEDS: Metoprolol Succinate XL 25mg tab ORAL SCH (08:00)
[2017-12-05] MEDS: Aspirin EC 81mg tab ORAL SCH (08:05)
[2017-12-05] MEDS: Sensipar 30mg Tab ORAL SCH (08:06)
[2017-12-05] MEDS: Docusate 100mg cap ORAL SCH ×2 (08:06→17:59)
[2017-12-05] MEDS: Sertraline 50mg tab ORAL SCH (08:06)
[2017-12-05] MEDS: Nephrovite tab (Rena-Vite) ORAL SCH (08:06)
[2017-12-05] MEDS: Heparin 5000 units/ml inj SUBQ SCH ×2 (08:13→21:51)
[2017-12-05 12:00] VITALS: BP 122/70
[2017-12-05 16:00] VITALS: BP 131/65
--- NOTE | 2017-12-05 17:09 | Infectious Diseases Prog Note ---
Assessment/Plan Assessment/Plan ASSESSMENT AND PLAN: 1. left arm hematoma, blood cultures negative, fistula, fever x1, no leukocytosis - communicated with vascular surgery and does not think patient has a fistula infection - discontinue vancomycin and zosyn - monitor labs and temps 2. The patient has end-stage renal disease, on hemodialysis. 3. Diabetes with retinopathy and nephropathy. 4. Hypertension with hypertensive cardiovascular disease. 5. COPD. 6. CHF. 7. Anemia of chronic kidney disease. 8. Recurrent ascites. 9. Alcoholic liver cirrhosis. 10. Past medical history noted. 11. No known drug allergies. 12. Social history at this time is negative for smoking, alcohol, or drug abuse. 13. Family history at this time is negative for exposure to tuberculosis or cancer, unremarkable. 14. MAR was noted. 15. Case discussed with RN. 16. Case discussed with Dr. Sifuentes. 17. Case discussed with the patient. 18. Continue treatment with primary consultants. 19. Notes and records were noted. 20. Orders were entered. Subjective Constitutional: Reports: fever - fever x 1 on 12/04/17, fatigue HEENT: Denies: dysphagia, congestion Respiratory: Denies: shortness of breath Cardiovascular: Denies: chest pain Gastrointestinal/Abdominal: Denies: nausea, vomiting, diarrhea Genitourinary: Reports: other - no franco Neurologic: Reports: no symptoms Psychiatric: Reports: no symptoms Skin: Reports: other - + itching, no rash Hematologic: Denies: bleeding Musculoskeletal: Denies: pain - less left arm pain Allergies: Coded Allergies: No Known Allergies (Unverified , 12/01/17) Objective Vital Signs Last 24 Hour Vital Signs Date Time Temp Pulse Resp B/P (MAP) Pulse Ox O2 Delivery O2 Flow Rate FiO2 12/05/17 12:00 98.0 82 18 122/70 (87) 98 98.0 12/05/17 09:00 Room Air 12/05/17 08:03 80 18 Nasal Cannula 2.0 28 12/05/17 08:03 Nasal Cannula 2.0 28 12/05/17 08:03 99 Nasal Cannula 2.0 28 12/05/17 08:00 98.0 78 17 129/73 (91) 99 98.0 12/05/17 05:38 99.0 12/05/17 05:08 99.0 12/05/17 04:00 99.0 89 19 131/69 (89) 100 99.0 12/05/17 00:00 98.4 81 19 128/76 (93) 100 98.4 12/04/17 21:14 Room Air 12/04/17 20:00 99.7 93 19 136/74 (94) 99 99.7 Height (Feet): 5 Height (Inches): 4.00 Weight (Pounds): 169 General Appearance: no acute distress HEENT: normocephalic, atraumatic, anicteric, mucous membranes moist Respiratory/Chest: lungs clear, normal breath sounds, no respiratory distress, no accessory muscle use Cardiovascular: normal rate, regular rhythm, no gallop/murmur, no JVD Abdomen: normal bowel sounds, soft, non tender, no organomegaly, non distended Genitourinary: other - no franco, no cva pain Extremities: no cyanosis, other - left arm swelling and pain less Skin: no rash, no ulcers Neurologic/Psychiatric: alert, responsive Lymphatic: no neck adenopathy Musculoskeletal: no effusion Objective none Microbiology Date/Time Source Procedure Growth Status 12/01/17 15:30 Blood Blood Culture - Preliminary NO GROWTH AFTER 72 HOURS Resulted 12/01/17 16:00 Nasal Nares MRSA Culture - Final NO METHICILLIN RESISTANT STAPH AUREUS... Complete 12/01/17 16:00 Rectum VRE Culture - Final Enterococcus Faecalis - Vre Complete 12/01/17 16:00 Rectum - Final NO CARBAPENEM-RESISTANT ENTEROBACTERI... Complete Laboratory Tests Test 12/05/17 05:45 White Blood Count 6.2 K/UL (4.8-10.8) Red Blood Count 4.10 M/UL (4.20-5.40) L Hemoglobin 12.0 G/DL (12.0-16.0) Hematocrit 37.5 % (37.0-47.0) Mean Corpuscular Volume 91 FL (80-99) Mean Corpuscular Hemoglobin 29.4 PG (27.0-31.0) Mean Corpuscular Hemoglobin Concent 32.2 G/DL (32.0-36.0) Red Cell Distribution Width 15.0 % (11.6-14.8) H Platelet Count 158 K/UL (150-450) Mean Platelet Volume 5.6 FL (6.5-10.1) L Neutrophils (%) (Auto) 51.9 % (45.0-75.0) Lymphocytes (%) (Auto) 28.9 % (20.0-45.0) Monocytes (%) (Auto) 13.5 % (1.0-10.0) H Eosinophils (%) (Auto) 3.6 % (0.0-3.0) H Basophils (%) (Auto) 2.1 % (0.0-2.0) H Sodium Level 130 MMOL/L (136-145) L Potassium Level 6.1 MMOL/L (3.5-5.1) *H Chloride Level 96 MMOL/L (98-107) L Carbon Dioxide Level 23 MMOL/L (21-32) Anion Gap 11 mmol/L (5-15) Blood Urea Nitrogen 65 mg/dL (7-18) H Creatinine 7.9 MG/DL (0.55-1.30) H Estimat Glomerular Filtration Rate 6.1 mL/min (>60) Glucose Level 65 MG/DL (74-106) L Calcium Level 8.1 MG/DL (8.5-10.1) L Random Vancomycin Level 16.5 ug/mL Current Medications Medications (Trade) Dose Ordered Sig/Parmjit Route PRN Reason Start Time Stop Time Status Last Admin Dose Admin Acetaminophen (Tylenol) 500 mg Q6H PRN ORAL Mild Pain/Temp > 100.5 12/03/17 08:00 01/02/18 07:59 12/03/17 16:49 Albuterol/ Ipratropium (Albuterol/ Ipratropium) 3 ml Q4H PRN HHN Shortness of Breath 12/03/17 17:45 12/08/17 17:44 12/03/17 20:35 Amlodipine Besylate (Norvasc) 5 mg DAILY ORAL 12/02/17 09:00 01/01/18 08:59 12/03/17 08:31 Aspirin (Ecotrin) 81 mg DAILY ORAL 12/02/17 09:00 01/01/18 08:59 12/04/17 08:40 Bisacodyl (Dulcolax) 10 mg DAILYPRN PRN RECTAL Constipation 12/03/17 17:45 01/02/18 17:44 Cinacalcet (Sensipar) 30 mg DAILY ORAL 12/02/17 09:00 01/01/18 08:59 12/05/17 08:06 Dextrose (Dextrose 50%) 25 ml STAT PRN IV Hypoglycemia 12/01/17 19:00 12/31/17 18:59 Dextrose (Dextrose 50%) 50 ml STAT PRN IV Hypoglycemia 12/01/17 19:00 12/31/17 18:59 Diphenhydramine HCl (Benadryl) 25 mg Q6H PRN ORAL Itching 12/01/17 18:30 12/31/17 18:29 12/05/17 13:56 Docusate Sodium (Colace) 100 mg TWICE A DAY ORAL 12/02/17 09:00 01/01/18 08:59 12/05/17 08:06 Famotidine (Pepcid) 20 mg DAILY ORAL 12/02/17 09:00 01/01/18 08:59 12/05/17 08:06 Heparin Sodium (Porcine) (Heparin 5000 units/ml) 5,000 units EVERY 12 HOURS SUBQ 12/03/17 09:00 01/02/18 08:59 12/05/17 08:13 Insulin Aspart (NovoLOG) BEFORE MEALS AND HS SUBQ 12/01/17 21:00 12/31/17 20:59 12/01/17 21:24 Magnesium Hydroxide (Mom) 30 ml DAILYPRN PRN ORAL Constipation 12/03/17 17:45 01/02/18 17:44 12/03/17 18:52 Metoprolol Succinate (Toprol XL) 25 mg DAILY ORAL 12/02/17 09:00 01/01/18 08:59 12/03/17 08:31 Oxycodone/ Acetaminophen (Percocet 5-325) 1 tab Q6H PRN ORAL PAIN 4-10 12/01/17 19:00 12/08/17 18:59 12/05/17 13:56 Piperacillin Sod/ Tazobactam Sod 2.25 gm/Dextrose 55 ml @ 110 mls/hr Q12H IVPB 12/04/17 18:00 12/11/17 17:59 12/05/17 04:59 Sertraline HCl (Zoloft) 50 mg DAILY ORAL 12/02/17 09:00 01/01/18 08:59 12/05/17 08:06 Simethicone (Mylicon) 80 mg Q8H PRN ORAL GAS PAIN 12/01/17 18:30 12/31/17 18:29 Trazodone HCl (Desyrel) 50 mg BEDTIME ORAL 12/01/17 21:00 12/31/17 20:59 12/04/17 21:13 Vancomycin HCl (Vanco rx to dose) 1 ea DAILY PRN MISC Per rx protocol 12/01/17 18:30 12/31/17 18:29 Vitamin B Complex/ Vit C/Folic Acid (Nephrovite) 1 tab DAILY ORAL 12/02/17 09:00 01/01/18 08:59 12/05/17 08:06 Mynor Esteves MD Dec 05, 2017 17:09
[2017-12-05 20:00] VITALS: BP 136/80
--- NOTE | 2017-12-05 21:08 | Nephrology Progress Note ---
Assessment/Plan Assessment 1) ESRD 2) I am suspecting recirculation from permcath causing hyperkalemia, Hematoma of Rl arm is an added factor 3) Legally blind 4) Fluid overload Plan: HD almost on a daily basis Check pre and Post BUN Objective Objective Last 24 Hour Vital Signs Date Time Temp Pulse Resp B/P (MAP) Pulse Ox O2 Delivery O2 Flow Rate FiO2 12/05/17 19:59 98 Nasal Cannula 2.0 28 12/05/17 19:59 Nasal Cannula 2.0 28 12/05/17 19:59 74 18 Nasal Cannula 2.0 28 12/05/17 16:00 97.9 74 20 131/65 (87) 100 97.9 12/05/17 12:00 98.0 82 18 122/70 (87) 98 98.0 12/05/17 09:00 Room Air 12/05/17 08:03 80 18 Nasal Cannula 2.0 28 12/05/17 08:03 Nasal Cannula 2.0 28 12/05/17 08:03 99 Nasal Cannula 2.0 28 12/05/17 08:00 98.0 78 17 129/73 (91) 99 98.0 12/05/17 05:38 99.0 12/05/17 05:08 99.0 12/05/17 04:00 99.0 89 19 131/69 (89) 100 99.0 12/05/17 00:00 98.4 81 19 128/76 (93) 100 98.4 12/04/17 21:14 Room Air Intake and Output 12/04/17 12/05/17 19:00 07:00 Intake Total 655 ml 535 ml Balance 655 ml 535 ml Intake Oral 600 ml 480 ml IV Total 55 ml 55 ml # Voids 2 3 Laboratory Tests 12/05/17 05:45: White Blood Count 6.2, Red Blood Count 4.10L, Hemoglobin 12.0, Hematocrit 37.5, Mean Corpuscular Volume 91, Mean Corpuscular Hemoglobin 29.4, Mean Corpuscular Hemoglobin Concent 32.2, Red Cell Distribution Width 15.0H, Platelet Count 158, Mean Platelet Volume 5.6L, Neutrophils (%) (Auto) 51.9, Lymphocytes (%) (Auto) 28.9, Monocytes (%) (Auto) 13.5H, Eosinophils (%) (Auto) 3.6H, Basophils (%) ( Auto) 2.1H, Sodium Level 130L, Potassium Level 6.1*H, Chloride Level 96L, Carbon Dioxide Level 23, Anion Gap 11, Blood Urea Nitrogen 65H, Creatinine 7.9H , Estimat Glomerular Filtration Rate 6.1, Glucose Level 65L, Calcium Level 8.1L , Random Vancomycin Level 16.5 Height (Feet): 5 Height (Inches): 4.00 Weight (Pounds): 169 Felipe Ramirez MD Dec 05, 2017 21:08
[2017-12-05] MEDS: TraZODone 50mg tab ORAL SCH (21:45)
[2017-12-05] MEDS: Albuterol/Ipratropium 3ml neb HHN PRN (22:11)
[2017-12-06] VITALS: BP 126/74
[2017-12-06 04:00] VITALS: BP 127/71
[2017-12-06] MEDS: NovoLOG Insulin Flexpen SUBQ SCH ×4 (06:30→21:19)
[2017-12-06 06:51] LABS: BASOPHILS % (AUTO) 1.4 % (0.0-2.0); EOSINOPHILS % (AUTO) 3.5 % (0.0-3.0); HEMATOCRIT 35.7 % (37.0-47.0); HEMOGLOBIN 11.6 G/DL (12.0-16.0); LYMPHOCYTES % (AUTO) 35.1 % (20.0-45.0); MEAN CORPUSCULAR VOLUME 91 FL (80-99); MONOCYTES % (AUTO) 18.4 % (1.0-10.0); NEUTROPHILS % (AUTO) 41.5 % (45.0-75.0); PLATELET COUNT 166 K/UL (150-450); RED BLOOD COUNT 3.92 M/UL (4.20-5.40); RED CELL DISTRIBUTION WIDTH 14.9 % (11.6-14.8); WHITE BLOOD COUNT 4.5 K/UL (4.8-10.8)
[2017-12-06 07:07] LABS: ANION GAP 11 mmol/L (5-15); BLOOD UREA NITROGEN 56 mg/dL (7-18); CALCIUM 8.1 MG/DL (8.5-10.1); CARBON DIOXIDE 22 MMOL/L (21-32); CHLORIDE 98 MMOL/L (98-107); CREATININE 8.1 MG/DL (0.55-1.30); POTASSIUM 5.9 MMOL/L (3.5-5.1); SODIUM 131 MMOL/L (136-145)
[2017-12-06 08:00] VITALS: BP 153/79
[2017-12-06] MEDS: Nephrovite tab (Rena-Vite) ORAL SCH (08:30)
[2017-12-06] MEDS: Sertraline 50mg tab ORAL SCH (08:30)
[2017-12-06] MEDS: Sensipar 30mg Tab ORAL SCH (08:30)
[2017-12-06] MEDS: Docusate 100mg cap ORAL SCH ×2 (08:30→17:34)
[2017-12-06] MEDS: Aspirin EC 81mg tab ORAL SCH (08:30)
[2017-12-06] MEDS: oxyCODONE HCL/Acetaminophen 5/325mg ORAL PRN ×2 (08:31→16:24)
[2017-12-06] MEDS: Metoprolol Succinate XL 25mg tab ORAL SCH (08:32)
[2017-12-06] MEDS: Heparin 5000 units/ml inj SUBQ SCH ×2 (08:33→21:18)
--- NOTE | 2017-12-06 09:43 | Diagnostic Imaging Report ---
APPROVED REPORT CPT Code: 60506 Present Symptoms Comments: Left arm AVF eval for psuodo aneurysm/shunt hematoma R/O Thrombosis LEFT UPPER EXTREMITY: Imaging reveals patency of the arterio-venous fistula, the brachial artery to the basilic vein, at the upper arm level. Elevated velocities indicate two distal anastomotic site. The venous outflow is widely patent. There is no evidence of pseudo-aneurysm. A hematoma noted around the arterio-venous fistula, measuring approximately 3.8 x 5.0 cm. Proximal brachial artery: 146 cm/s Proximal AVF: 0.1 cm, 512 cm/s Mid anastomosis: 0.6, 246 cm/s Distal anastomosis: 0.2 cm, 258 cm/s Brachial artery: distal 97 cm/s Deep venous system of the left upper extremity is within normal limits. Also arterial Doppler study was with normal limits.
--- NOTE | 2017-12-06 09:45 | Diagnostic Imaging Report ---
APPROVED REPORT CPT Code: 58198 Present Symptoms Comments: R/O AVF occlusion LEFT UPPER EXTREMITY: Imaging reveals patency of the arterio-venous fistula, the brachial artery to the basilic vein, at the upper arm level. Elevated velocities indicate two in the distal anastomotic site. The venous outflow is widely patent. There is no evidence of pseudo-aneurysm. A hematoma noted around the arterio-venous fistula, measuring approximately 3.8 x 5.0 cm. Proximal brachial artery: 132 cm/s Proximal AVF: 0.1 cm, 477 cm/s Mid AVF: 4 cm, 187 cm/s Distal anastomosis: 0.2 cm, 352 cm/s Brachial artery: distal 58 cm/s Deep venous system of the left upper extremity is within normal limits. The arterial Doppler study was also with normal limits. If you have questions please call reading physician, Vascular surgeon, Dr. Adams at [phone]
[2017-12-06 12:00] VITALS: BP 122/69
[2017-12-06 16:00] VITALS: BP 146/84
--- NOTE | 2017-12-06 17:01 | Nephrology Progress Note ---
Assessment/Plan Assessment 1) ESRD 2) I am suspecting recirculation from permcath causing hyperkalemia, Hematoma of Rl arm is an added factor 3) Legally blind 4) Fluid overload Plan: HD almost on a daily basis pre and Post BUN The permcath possibly needs to be changed Subjective Subjective She is having alot of pain on the L arm AVF with hematoma, K is 5.9 and BUN is 58 Objective Objective Last 24 Hour Vital Signs Date Time Temp Pulse Resp B/P (MAP) Pulse Ox O2 Delivery O2 Flow Rate FiO2 12/06/17 16:00 98.4 83 20 146/84 (104) 100 98.4 12/06/17 12:00 97.7 80 20 122/69 (86) 98 97.7 12/06/17 08:15 Room Air 12/06/17 08:00 97.8 94 20 153/79 (103) 98 97.8 12/06/17 07:59 98 Nasal Cannula 2.0 28 12/06/17 07:59 78 18 Nasal Cannula 2.0 28 12/06/17 07:59 Nasal Cannula 2.0 28 12/06/17 04:00 97.5 79 19 127/71 (89) 100 97.5 12/06/17 00:00 98.9 94 18 126/74 (91) 98 98.9 12/05/17 22:12 79 18 99 Nasal Cannula 2.0 28 12/05/17 22:06 75 18 99 Nasal Cannula 2.0 28 12/05/17 21:00 Room Air 12/05/17 20:00 97.8 82 19 136/80 (98) 99 97.8 12/05/17 19:59 98 Nasal Cannula 2.0 28 12/05/17 19:59 Nasal Cannula 2.0 28 12/05/17 19:59 74 18 Nasal Cannula 2.0 28 Laboratory Tests 12/06/17 05:45: White Blood Count 4.5L, Red Blood Count 3.92L, Hemoglobin 11.6L, Hematocrit 35.7L, Mean Corpuscular Volume 91, Mean Corpuscular Hemoglobin 29.5, Mean Corpuscular Hemoglobin Concent 32.4, Red Cell Distribution Width 14.9H, Platelet Count 166, Mean Platelet Volume 5.7L, Neutrophils (%) (Auto) 41.5L, Lymphocytes (%) (Auto) 35.1, Monocytes (%) (Auto) 18.4H, Eosinophils (%) (Auto) 3.5H, Basophils (%) (Auto) 1.4, Sodium Level 131L, Potassium Level 5.9H, Chloride Level 98, Carbon Dioxide Level 22, Anion Gap 11, Blood Urea Nitrogen 58H, Creatinine 8.1H, Estimat Glomerular Filtration Rate 5.9, Glucose Level 72L , Calcium Level 8.1L Height (Feet): 5 Height (Inches): 4.00 Weight (Pounds): 168 General Appearance: WD/WN, no apparent distress EENT: PERRL/EOMI Neck: non-tender, normal alignment Cardiovascular: normal rate, regular rhythm Respiratory/Chest: lungs clear Abdomen: normal bowel sounds, non tender Neurologic: contact lens blocker II-XII grossly normal, no motor/sensory deficits Felipe Ramirez MD Dec 06, 2017 17:01
[2017-12-06] MEDS: Albuterol/Ipratropium 3ml neb HHN PRN (18:48)
[2017-12-06 19:42] VITALS: BP 122/68
[2017-12-06] MEDS: Acetaminophen 500mg (ES) tab ORAL PRN (22:49)
--- NOTE | 2017-12-06 23:00 | Consultation ---
DATE OF CONSULTATION: 12/02/2017 VASCULAR SURGERY CONSULTATION CONSULTING PHYSICIAN: Amarjit Dyson M.D. REFERRING PHYSICIAN: Madison Sifuentes M.D. REASON FOR CONSULTATION: Left arm AV shunt hematoma. HISTORY OF PRESENT ILLNESS: This is a 67-year-old female, who is well known to our vascular service. The patient had a prior history of autogenous basilic vein transposition AV fistula, had undergone an AV shunt access use as an outpatient, and developed a large hematoma on the left arm with hematoma extending into the biceps. She was admitted for further evaluation. Today on examination, her hematoma looks much improved compared to her last week examination. Her hemoglobin is stable without any active bleeding. She is getting dialysis through the right chest tunneled Perma catheter. PAST MEDICAL HISTORY: As above, history of , diabetes mellitus, hypertension, end-stage renal disease on hemodialysis, history of right chest Perma catheter, and left upper arm basilic vein transposition AV fistula. MEDICATIONS: See attached MAR. ALLERGIES: No known drug allergies. SOCIAL HISTORY: No history of drugs or alcohol or smoking history. FAMILY HISTORY: Unremarkable. REVIEW OF SYSTEMS: CARDIOVASCULAR: No history of chest pain or palpitations. PULMONARY: No cough or hemoptysis. GASTROINTESTINAL: No history of abdominal pain, constipation, or diarrhea. GENITOURINARY: No urinary symptoms. NEUROLOGIC: No history of strokes or seizures. PHYSICAL EXAMINATION: VITAL SIGNS: The patient is afebrile at 97, heart rate 80, blood pressure 140/70, and respiratory 16. EXTREMITIES: The patient has palpable radial pulses. She has a palpable left upper arm AV shunt thrill, has enlarged left upper arm hematoma, which is softer and less compared to last week's examination. SKIN: Clear, dry, and intact. She has right chest Perma catheter. Site is clean, dry, and intact. LUNGS: Clear to auscultation. HEART: Regular rate and rhythm. ABDOMEN: Soft and nontender. LABORATORY DATA: Revealed WBC 6.7, hemoglobin 12.9, and platelet count 203,000. BUN is 60, creatinine 7.5, sodium 133, potassium 5.7, and glucose . Total bilirubin 0.4. AST 75 and ALT 81. IMPRESSION: 1. Large left upper arm AV shunt access site hematoma, which looks clinically improved compared to last week's exam. 2. No pseudoaneurysm on duplex previously. 3. History of end-stage renal failure, on hemodialysis with a right chest Perma catheter with a history of malignant hypertension, diabetes mellitus. PLAN AND RECOMMENDATIONS: 1. Left arm AV shunt ultrasound to evaluate the hematoma. 2. Left arm elevation and ice pack p.r.n. for pain control. 3. Rest the left arm AV shunt for about 3 weeks until the hematoma subsides. We will follow the patient as an outpatient, then we will schedule the patient for outpatient fistulogram to assess the flow and the shunt. The patient is cleared for discharge from vascular surgery standpoint. Continue dialysis through the right chest Perma catheter. The above was discussed at length with the patient, Dr. Sifuentes, and the nurse at bedside. Amarjit Dyson M.D. DR: JUSTINA JOB#: [id number] CC:
[2017-12-07 00:26] VITALS: BP_SYST 128; BP_SYST 99; BP_DIAS 59; BP_DIAS 75
[2017-12-07] MEDS: TraZODone 50mg tab ORAL SCH (01:02)
[2017-12-07] MEDS: oxyCODONE HCL/Acetaminophen 5/325mg ORAL PRN ×2 (01:04→09:40)
[2017-12-07 04:23] VITALS: BP 138/76
[2017-12-07 04:29] LABS: BASOPHILS % (AUTO) 1.4 % (0.0-2.0); EOSINOPHILS % (AUTO) 3.9 % (0.0-3.0); HEMATOCRIT 34.9 % (37.0-47.0); HEMOGLOBIN 11.5 G/DL (12.0-16.0); LYMPHOCYTES % (AUTO) 31.4 % (20.0-45.0); MEAN CORPUSCULAR VOLUME 90 FL (80-99); MONOCYTES % (AUTO) 18.9 % (1.0-10.0); NEUTROPHILS % (AUTO) 44.5 % (45.0-75.0); PLATELET COUNT 175 K/UL (150-450); RED BLOOD COUNT 3.87 M/UL (4.20-5.40); RED CELL DISTRIBUTION WIDTH 14.9 % (11.6-14.8); WHITE BLOOD COUNT 4.7 K/UL (4.8-10.8)
[2017-12-07 04:34] LABS: ANION GAP 11 mmol/L (5-15); BLOOD UREA NITROGEN 55 mg/dL (7-18); CALCIUM 8.1 MG/DL (8.5-10.1); CARBON DIOXIDE 24 MMOL/L (21-32); CHLORIDE 97 MMOL/L (98-107); CREATININE 6.9 MG/DL (0.55-1.30); POTASSIUM 4.8 MMOL/L (3.5-5.1); SODIUM 132 MMOL/L (136-145)
[2017-12-07] MEDS: NovoLOG Insulin Flexpen SUBQ SCH ×2 (06:20→11:30)
--- NOTE | 2017-12-07 07:54 | Nephrology Progress Note ---
Assessment/Plan Plan Last HD yesterday. Seems that need for urgent repair is decreasing. Subjective Subjective Less Nausea!!! Objective Objective Last 24 Hour Vital Signs Date Time Temp Pulse Resp B/P (MAP) Pulse Ox O2 Delivery O2 Flow Rate FiO2 12/07/17 04:23 97.9 86 17 138/76 (96) 97 97.9 12/07/17 00:26 98.2 81 19 128/75 (92) 100 98.2 12/06/17 21:00 Room Air 12/06/17 19:42 97.9 83 15 122/68 (86) 98 97.9 12/06/17 19:09 84 18 99 Nasal Cannula 2.0 28 12/06/17 18:50 99 Nasal Cannula 2.0 28 12/06/17 18:50 Nasal Cannula 2.0 28 12/06/17 18:49 80 18 Nasal Cannula 2.0 28 12/06/17 18:48 80 18 99 Nasal Cannula 2.0 28 12/06/17 16:00 98.4 83 20 146/84 (104) 100 98.4 12/06/17 12:00 97.7 80 20 122/69 (86) 98 97.7 12/06/17 08:15 Room Air 12/06/17 08:00 97.8 94 20 153/79 (103) 98 97.8 12/06/17 07:59 98 Nasal Cannula 2.0 28 12/06/17 07:59 78 18 Nasal Cannula 2.0 28 12/06/17 07:59 Nasal Cannula 2.0 28 Intake and Output 12/06/17 12/07/17 19:00 07:00 Intake Total 960 ml Output Total 800 ml Balance 160 ml Intake Oral 960 ml Output Urine Total 800 ml # Voids 3 Laboratory Tests 12/07/17 01:34: Blood Urea Nitrogen 55H 12/07/17 04:20: Blood Urea Nitrogen 55H, White Blood Count 4.7L, Red Blood Count 3.87L, Hemoglobin 11.5L, Hematocrit 34.9L, Mean Corpuscular Volume 90, Mean Corpuscular Hemoglobin 29.6, Mean Corpuscular Hemoglobin Concent 32.8, Red Cell Distribution Width 14.9H, Platelet Count 175, Mean Platelet Volume 5.6L, Neutrophils (%) (Auto) 44.5L, Lymphocytes (%) (Auto) 31.4, Monocytes (%) (Auto) 18.9H, Eosinophils (%) (Auto) 3.9H, Basophils (%) (Auto) 1.4, Sodium Level 132L , Potassium Level 4.8, Chloride Level 97L, Carbon Dioxide Level 24, Anion Gap 11 , Creatinine 6.9H, Estimat Glomerular Filtration Rate 7.2, Glucose Level 90, Calcium Level 8.1L Height (Feet): 5 Height (Inches): 4.00 Weight (Pounds): 167 Objective Blind CV RR Lungs CTa Abd SNT BS + E IKE Hematoma exquisitely tender Madison Sifuentes MD Dec 07, 2017 07:54
[2017-12-07 08:00] VITALS: BP 130/69
[2017-12-07] MEDS: Heparin 5000 units/ml inj SUBQ SCH (09:00)
[2017-12-07] MEDS: Sertraline 50mg tab ORAL SCH (09:32)
[2017-12-07] MEDS: Docusate 100mg cap ORAL SCH (09:32)
[2017-12-07] MEDS: Sensipar 30mg Tab ORAL SCH (09:32)
[2017-12-07] MEDS: Aspirin EC 81mg tab ORAL SCH (09:32)
[2017-12-07] MEDS: Nephrovite tab (Rena-Vite) ORAL SCH (09:33)
[2017-12-07] MEDS: Metoprolol Succinate XL 25mg tab ORAL SCH (09:33)
[2017-12-07 12:00] VITALS: BP 121/65
[2017-12-07] MEDS: Albuterol/Ipratropium 3ml neb HHN PRN (14:48)
--- NOTE | 2017-12-07 15:10 | Infectious Diseases Prog Note ---
Assessment/Plan Assessment/Plan ASSESSMENT AND PLAN: 1. left arm hematoma, blood cultures negative, fistula, fever x1, no leukocytosis - communicated with vascular surgery and does not think patient has a fistula infection - s/p vancomycin and zosyn - monitor labs and temps - stable off abx 2. The patient has end-stage renal disease, on hemodialysis. 3. Diabetes with retinopathy and nephropathy. 4. Hypertension with hypertensive cardiovascular disease. 5. COPD. 6. CHF. 7. Anemia of chronic kidney disease. 8. Recurrent ascites. 9. Alcoholic liver cirrhosis. 10. Past medical history noted. 11. No known drug allergies. 12. Social history at this time is negative for smoking, alcohol, or drug abuse. 13. Family history at this time is negative for exposure to tuberculosis or cancer, unremarkable. 14. MAR was noted. 15. Case discussed with RN. 16. Case discussed with Dr. Sifuentes. 17. Case discussed with the patient. 18. Continue treatment with primary consultants. 19. Notes and records were noted. 20. Orders were entered. 21. vre colonized - d/w RN about colonization Subjective Constitutional: Denies: fever HEENT: Denies: congestion Respiratory: Denies: shortness of breath Cardiovascular: Denies: chest pain Gastrointestinal/Abdominal: Denies: nausea, vomiting, diarrhea Genitourinary: Reports: other - no franco Neurologic: Denies: headache Psychiatric: Denies: depression Skin: Denies: rash Hematologic: Denies: bleeding Musculoskeletal: Denies: pain Allergies: Coded Allergies: No Known Allergies (Unverified , 12/01/17) Objective Vital Signs Last 24 Hour Vital Signs Date Time Temp Pulse Resp B/P (MAP) Pulse Ox O2 Delivery O2 Flow Rate FiO2 12/07/17 12:00 98.2 78 18 121/65 (83) 100 98.2 12/07/17 09:33 83 130/69 12/07/17 09:33 83 130/69 12/07/17 08:15 Room Air 12/07/17 08:00 97.7 83 18 130/69 (89) 99 97.7 12/07/17 04:23 97.9 86 17 138/76 (96) 97 97.9 12/07/17 00:26 98.2 81 19 128/75 (92) 100 98.2 12/06/17 21:00 Room Air 12/06/17 19:42 97.9 83 15 122/68 (86) 98 97.9 12/06/17 19:09 84 18 99 Nasal Cannula 2.0 28 12/06/17 18:50 99 Nasal Cannula 2.0 28 12/06/17 18:50 Nasal Cannula 2.0 28 12/06/17 18:49 80 18 Nasal Cannula 2.0 28 12/06/17 18:48 80 18 99 Nasal Cannula 2.0 28 12/06/17 16:00 98.4 83 20 146/84 (104) 100 98.4 Height (Feet): 5 Height (Inches): 4.00 Weight (Pounds): 167 General Appearance: no acute distress HEENT: normocephalic, atraumatic, anicteric, mucous membranes moist Respiratory/Chest: lungs clear, normal breath sounds, no respiratory distress, no accessory muscle use Cardiovascular: normal rate, regular rhythm, no gallop/murmur, no JVD Abdomen: normal bowel sounds, soft, non tender, no organomegaly, non distended Genitourinary: other - no franco Extremities: no cyanosis Skin: no rash Neurologic/Psychiatric: service associate II-XII grossly normal, alert Lymphatic: no neck adenopathy Musculoskeletal: no effusion Objective none Microbiology Date/Time Source Procedure Growth Status 12/01/17 15:30 Blood Blood Culture - Final NO GROWTH AFTER 5 DAYS Complete 12/01/17 16:00 Nasal Nares MRSA Culture - Final NO METHICILLIN RESISTANT STAPH AUREUS... Complete 12/01/17 16:00 Rectum VRE Culture - Final Enterococcus Faecalis - Vre Complete 12/01/17 16:00 Rectum - Final NO CARBAPENEM-RESISTANT ENTEROBACTERI... Complete Laboratory Tests Test 12/07/17 01:34 12/07/17 04:20 Blood Urea Nitrogen 55 mg/dL (7-18) H 55 mg/dL (7-18) H White Blood Count 4.7 K/UL (4.8-10.8) L Red Blood Count 3.87 M/UL (4.20-5.40) L Hemoglobin 11.5 G/DL (12.0-16.0) L Hematocrit 34.9 % (37.0-47.0) L Mean Corpuscular Volume 90 FL (80-99) Mean Corpuscular Hemoglobin 29.6 PG (27.0-31.0) Mean Corpuscular Hemoglobin Concent 32.8 G/DL (32.0-36.0) Red Cell Distribution Width 14.9 % (11.6-14.8) H Platelet Count 175 K/UL (150-450) Mean Platelet Volume 5.6 FL (6.5-10.1) L Neutrophils (%) (Auto) 44.5 % (45.0-75.0) L Lymphocytes (%) (Auto) 31.4 % (20.0-45.0) Monocytes (%) (Auto) 18.9 % (1.0-10.0) H Eosinophils (%) (Auto) 3.9 % (0.0-3.0) H Basophils (%) (Auto) 1.4 % (0.0-2.0) Sodium Level 132 MMOL/L (136-145) L Potassium Level 4.8 MMOL/L (3.5-5.1) Chloride Level 97 MMOL/L (98-107) L Carbon Dioxide Level 24 MMOL/L (21-32) Anion Gap 11 mmol/L (5-15) Creatinine 6.9 MG/DL (0.55-1.30) H Estimat Glomerular Filtration Rate 7.2 mL/min (>60) Glucose Level 90 MG/DL (74-106) Calcium Level 8.1 MG/DL (8.5-10.1) L Current Medications Medications (Trade) Dose Ordered Sig/Parmjit Route PRN Reason Start Time Stop Time Status Last Admin Dose Admin Acetaminophen (Tylenol) 500 mg Q6H PRN ORAL Mild Pain/Temp > 100.5 12/03/17 08:00 01/02/18 07:59 12/06/17 22:49 Albuterol/ Ipratropium (Albuterol/ Ipratropium) 3 ml Q4H PRN HHN Shortness of Breath 12/03/17 17:45 12/08/17 17:44 12/06/17 18:48 Amlodipine Besylate (Norvasc) 5 mg DAILY ORAL 12/02/17 09:00 01/01/18 08:59 12/07/17 09:33 Aspirin (Ecotrin) 81 mg DAILY ORAL 12/02/17 09:00 01/01/18 08:59 12/07/17 09:32 Bisacodyl (Dulcolax) 10 mg DAILYPRN PRN RECTAL Constipation 12/03/17 17:45 01/02/18 17:44 Cinacalcet (Sensipar) 30 mg DAILY ORAL 12/02/17 09:00 01/01/18 08:59 12/07/17 09:32 Dextrose (Dextrose 50%) 25 ml STAT PRN IV Hypoglycemia 12/01/17 19:00 12/31/17 18:59 Dextrose (Dextrose 50%) 50 ml STAT PRN IV Hypoglycemia 12/01/17 19:00 12/31/17 18:59 Diphenhydramine HCl (Benadryl) 25 mg Q6H PRN ORAL Itching 12/01/17 18:30 12/31/17 18:29 12/06/17 23:47 Docusate Sodium (Colace) 100 mg TWICE A DAY ORAL 12/02/17 09:00 01/01/18 08:59 12/07/17 09:32 Famotidine (Pepcid) 20 mg DAILY ORAL 12/02/17 09:00 01/01/18 08:59 12/07/17 09:32 Heparin Sodium (Porcine) (Heparin 5000 units/ml) 5,000 units EVERY 12 HOURS SUBQ 12/03/17 09:00 01/02/18 08:59 12/06/17 21:18 Insulin Aspart (NovoLOG) BEFORE MEALS AND HS SUBQ 12/01/17 21:00 12/31/17 20:59 12/06/17 21:19 Magnesium Hydroxide (Mom) 30 ml DAILYPRN PRN ORAL Constipation 12/03/17 17:45 01/02/18 17:44 12/03/17 18:52 Metoprolol Succinate (Toprol XL) 25 mg DAILY ORAL 12/02/17 09:00 01/01/18 08:59 12/07/17 09:33 Oxycodone/ Acetaminophen (Percocet 5-325) 1 tab Q6H PRN ORAL PAIN 4-10 12/01/17 19:00 12/08/17 18:59 12/07/17 09:40 Sertraline HCl (Zoloft) 50 mg DAILY ORAL 12/02/17 09:00 01/01/18 08:59 12/07/17 09:32 Simethicone (Mylicon) 80 mg Q8H PRN ORAL GAS PAIN 12/01/17 18:30 12/31/17 18:29 Trazodone HCl (Desyrel) 50 mg BEDTIME ORAL 12/01/17 21:00 12/31/17 20:59 12/07/17 01:02 Vitamin B Complex/ Vit C/Folic Acid (Nephrovite) 1 tab DAILY ORAL 12/02/17 09:00 01/01/18 08:59 12/07/17 09:33 Mynor Esteves MD Dec 07, 2017 15:10
--- NOTE | 2017-12-08 13:46 | Discharge Summary ---
Discharge Summary Discharge Summary _ DATE OF ADMISSION: 12/01/2017 DATE OF DISCHARGE: 12/07/2017 CONSULTANTS: Dr. Mynor Dyson BRIEF HOSPITAL COURSE: Patient is a 67-year-old -[place] female, who resides in assisted, with end-stage renal failure, on hemodialysis q Tuesday, Tuesday and Tuesday. The patient had a left arm AV fistula that has hematoma. During the last several weeks, hematoma has increased in size and became extremely painful and tender to touch. She then presented to emergency room for further evaluation. She has medical history significant for CHF, diabetes mellitus with diabetic retinopathy and diabetic nephropathy, COPD, hypertensive cardiovascular disease , anemia of chronic disease, and recurrent ascites due to alcoholic liver cirrhosis. On evaluation at ED, vital signs were stable. Left arm AV fistula showed warmth , swelling and tenderness. Duplex scan showed patent arteriovenous fistula. Blood work did not show any leukocytosis. BUN was 52, creatinine 6.9, potassium 5.2. There was consideration of a clotted fistula with possible occlusion and possible infection. Patient was then admitted for further management, for vascular surgery consult, most likely needs drainage of the hematoma. She had fever, temperature 100.9, however, no leukocytosis. ID was consulted. She was started empirically on Zosyn and IV vancomycin pending culture results. He was seen by vascular surgeon. Patient had a prior history of autogenous basilic vein transposition AV fistula and had undergone an AV shunt access use as an outpatient. She is receiving dialysis through the right chest tunneled permacath. Upon evaluation of the left upper arm AV shunt access site hematoma , hematoma looked clinically improved. Arterial duplex scan showed no pseudoaneurysm. She was advised arm elevation and ice pack prn. She was advised need to rest left AV arm shunt for approximately 3 weeks until hematoma subsides. Needs to follow-up as outpatient to be scheduled for fistulogram to assess the flow of shunt. She was given inpatient hemodialysis. Blood culture did not isolate any growth. Fever eventually resolved. She was taken off antibiotics and patient was discharged back to assisted. FINAL DIAGNOSES: Left AV shunt hematoma End-stage renal disease, on HD Hyperkalemia Legally blind Fluid overload Diabetes with diabetic retinopathy and nephropathy Hypertension with hypertensive cardiovacular disease COPD CHF Anemia of chronic kidney disease Recurrent ascites due to alcoholic liver cirrhosis DISPOSITION: Patient was discharged to [facility]. DISCHARGE MEDICATIONS: Refer to Discharge Medication List. I have been assigned to dictate discharge summary on this account, and I was not involved in the patient's management. Carolina Mackey NP Dec 08, 2017 13:46
== END 2017-12-07 15:28 | DRG 314 ==
LOC: EDBD 14:32 → EMR 15:08 → 4E 16:20 → EDBEDREQ 16:33
PROC: 5A1D70Z Performance of Urinary Filtration, Intermittent, Less than 6 Hours Per Day (ICD-10-PCS; principal; 2017-12-06)
DX: T82.898A Other specified complication of vascular prosthetic devices, implants and grafts, initial encounter (principal); N18.6 End stage renal disease; I13.2 Hypertensive heart and chronic kidney disease with heart failure and with stage 5 chronic kidney disease, or end stage renal disease; Y83.2 Surgical operation with anastomosis, bypass or graft as the cause of abnormal reaction of the patient, or of later complication, without mention of misadventure at the time of the procedure; E11.22 Type 2 diabetes mellitus with diabetic chronic kidney disease; Z99.2 Dependence on renal dialysis; E11.319 Type 2 diabetes mellitus with unspecified diabetic retinopathy without macular edema; D63.8 Anemia in other chronic diseases classified elsewhere; I50.9 Heart failure, unspecified; K70.31 Alcoholic cirrhosis of liver with ascites; E87.5 Hyperkalemia; E87.79 Other fluid overload
CPT/HCPCS: 36415; 80048; 80053; 80202; 82962; 84520; 85025; 85610; 85730; 87040; 87081; 93931; 93990; 94640; 94664; 94760; J1815; J7620

== ENCOUNTER 2018-03-17 19:14 | Emergency (ER) | payer MEDICARE, OTHER ==
[~2018-03-17] VITALS: Ht 165.1 cm; Wt 86.2 kg
[~2018-03-17 19:14] MED LIST: ACETAMINOPHEN325 M1 ORAL; AMLODIPINE BESYL5 MG ORAL; ASPIR 8181 MG ORAL; BENADRYL25 MG ORAL; DOCUSATE SODIU100 MG ORAL; FAMOTIDINE20 MG ORAL; METOPROLOL SUCC25 MG ORAL; NEPHROVITE1 TAB ORAL; NORCO 7.5-3251 EACH ORAL; RENAGEL800 MG ORAL; SENSIPAR30 MG ORAL; SERTRALINE HCL50 MG ORAL; SIMETHICONE80 MG ORAL; TRAZODONE HCL50 MG ORAL
[2018-03-17] MEDS ORDERED: Isovue-300 100ml vial INJ PRN (19:30)
[2018-03-17 19:54] VITALS: BP 139/78
[2018-03-17] MEDS ORDERED: Morphine Sulfate 4mg/ml Inj (IV/IM USE ONLY) IVP ONE (20:45)
[2018-03-17 21:31] VITALS: BP 142/71
--- NOTE | 2018-03-17 22:19 | Emergency Room Report ---
History of Present Illness General Chief Complaint: General Complaint Source: Medical Record Present Illness HPI 68-year-old female presents ED for evaluation. Patient came from residential facility for evaluation of AV fistula. Patient has temporary dialysis catheter in her right chest and a new AV fistula on her left arm. Per EMS they were unable to use the temporary catheter today as it was clogged. They used a new AV fistula but states there was some bleeding from the fistula site. Pressure dressing applied. No active bleeding at this time. Patient states she feels fine. Denies chest pain or shortness of breath. No other aggravating relieving factors. Denies any other associated symptoms Allergies: Coded Allergies: No Known Allergies (Unverified , 12/01/17) Patient History Past Medical History: DM, asthma, COPD, renal disease, dialysis Past Surgical History: none Pertinent Family History: none Social History: Denies: smoking, alcohol use, drug use Now: No Immunizations: UTD Reviewed Nursing Documentation: PMH: Agreed; PSxH: Agreed Nursing Documentation-PMH Past Medical History: No History, Except For Hx Hypertension: No - Legal blindness Hx Asthma: Yes Hx COPD: Yes Hx Diabetes: Yes - DM2 Hx Gastrointestinal Problems: Yes - Liver disease Hx Dialysis: Yes - M/W/F; ESRD; Liver Cirrhosis Review of Systems All Other Systems: negative except mentioned in HPI Physical Exam Vital Signs Date Time Temp Pulse Resp B/P (MAP) Pulse Ox O2 Delivery O2 Flow Rate FiO2 03/17/18 19:05 98.2 86 20 139/78 94 Room Air Sp02 EP Interpretation: reviewed, normal General Appearance: no apparent distress, alert, GCS 15, non-toxic Head: normocephalic, atraumatic Eyes: bilateral eye normal inspection, bilateral eye PERRL ENT: hearing grossly normal, normal pharynx, no angioedema, normal voice Neck: full range of motion, supple/symm/no masses Respiratory: chest non-tender, lungs clear, normal breath sounds, speaking full sentences Cardiovascular #1: regular rate, rhythm, no edema Cardiovascular #2: 2+ carotid (R), 2+ carotid (L), 2+ radial (R), 2+ radial (L) , 2+ dorsalis pedis (R), 2+ dorsalis pedis (L) Gastrointestinal: normal bowel sounds, non tender, soft, non-distended, no guarding, no rebound Rectal: deferred Genitourinary: normal inspection, no CVA tenderness Musculoskeletal: back normal, gait/station normal, normal range of motion, non- tender Neurologic: alert, oriented x3, responsive, motor strength/tone normal, sensory intact, speech normal Psychiatric: judgement/insight normal, memory normal, mood/affect normal, no suicidal/homicidal ideation Reflexes: 3+ bicep (R), 3+ bicep (L), 3+ tricep (R), 3+ tricep (L), 3+ knee (R) , 3+ knee (L) Skin: normal color, no rash, warm/dry, well hydrated, other - AV Fistula LUE. good bruit. no active bleeding Lymphatic: no adenopathy Medical Decision Making Diagnostic Impression: Primary Impression: Complication, dialysis catheter clot or failure ER Course Hospital Course 68-year-old female presents ED for evaluation. Temporary dialysis catheter not working. Bleeding from new AV fistula. Differential diagnoses include: OK/unstable angina, fluid overload, CHF exacerabation, hyperkalemia, uremia Clinical course Patient placed on stretcher. stable vitals. After initial history, physical exam reveals elderly female in no acute distress. There is a new AV fistula on the left upper extremity. Good bruit. No signs of infection. No bleeding. Discussed with Dr Encinas. He would like to place a new temporary dialysis catheter. Patient was supposed to go to [facility] to see Dr. Vega. Given the patient completed dialysis today there is no emergent indication for temporary dialysis catheter. Given that dialysis was completed today I see no reason for lab draw. He agrees to discharge patient back to residential facility. He will then arrange transport to [facility] for new temporary dialysis catheter I. I feel this is a highly complex case requiring extensive working including EKG/Rhythm strip, Xray/CT/US, Blood/urine lab work, repeat exams while in ED, and administration of strong opiates/narcotics for pain control, admission to hospital or close patient follow up. Diagnosis - complication of dialysis catheter stable and discharged to SNF. f/u with PMD. return to ED if symptoms recur/ worsen. Last Vital Signs Date Time Temp Pulse Resp B/P (MAP) Pulse Ox O2 Delivery O2 Flow Rate FiO2 03/17/18 21:31 98.5 79 18 142/71 99 Room Air Status: improved Disposition: XFER SNF Condition: Stable Patient Instructions: Dialysis Vascular Access Malfunction Albert Sheldon MD Mar 17, 2018 22:19
--- NOTE | 2018-03-19 14:12 | Cardiology Report ---
APPROVED REPORT EKG Measurement Heart [id number] Normal sinus rhythm Possible Left atrial enlargement Left ventricular hypertrophy Abnormal ECG
== END 2018-03-17 21:33 ==
LOC: EDBD 19:14 → EMR 19:45 → CANBEDREQ 20:20 → EMR 21:33
DX: T82.590A Other mechanical complication of surgically created arteriovenous fistula, initial encounter (principal); E11.22 Type 2 diabetes mellitus with diabetic chronic kidney disease; N18.6 End stage renal disease; Z99.2 Dependence on renal dialysis; J44.9 Chronic obstructive pulmonary disease, unspecified; K76.9 Liver disease, unspecified
CPT/HCPCS: 71045; 93005; 96374; 99284; J2270

== ENCOUNTER 2018-05-08 22:38 | Inpatient (IN) | payer MEDICARE, OTHER ==
[~2018-05-08] VITALS: Ht 160 cm; Wt 87.5 kg
[2018-05-08] MEDS ORDERED: Albuterol ud Inhalation HHN ONE (22:45)
[2018-05-08] MEDS ORDERED: Solu-MEDROL 125mg Inj IVP ONE (22:45)
[2018-05-08] MEDS ORDERED: Ipratropium 0.02% Inh Soln 2.5ml UD HHN ONE (22:45)
--- NOTE | 2018-05-08 22:50 | Emergency Room Report ---
History of Present Illness General Chief Complaint: Dyspnea/Respdistress Source: Patient, Medical Record Present Illness HPI Is a 68-year-old female with history of high blood pressure and his stage renal disease on hemodialysis. Her dialysis days are Tuesday, Tuesday, and Tuesday. She presents with chief complaint of shortness of breath. His been ongoing for about a week. She also has subjective low-grade fever. increasing oxygenation requirement. Her baseline O2 is 2.5 L N/C. Coughing is productive of sputum. Worse after dialysis. Better with breathing treatment. No nausea no vomiting. No diarrhea. Inspiration makes it worse. Rest makes it better. Allergies: Coded Allergies: No Known Allergies (Unverified , 12/01/17) Patient History Past Medical History: see triage record, old chart reviewed, DM, HTN Past Surgical History: other Pertinent Family History: none Social History: Denies: smoking Now: No Immunizations: other Reviewed Nursing Documentation: PMH: Agreed; PSxH: Agreed Nursing Documentation-PMH Hx Hypertension: No - Legal blindness Hx Asthma: Yes Hx COPD: Yes Hx Diabetes: Yes - DM2 Hx Gastrointestinal Problems: Yes - Liver disease Hx Dialysis: Yes - M/W/F; ESRD; Liver Cirrhosis Review of Systems Eye: Denies: eye pain, blurred vision ENT: Denies: ear pain, nose congestion, throat swelling Respiratory: Reports: cough, shortness of breath Cardiovascular: Denies: chest pain, palpitations Gastrointestinal: Denies: abdominal pain, diarrhea, nausea, vomiting Musculoskeletal: Denies: back pain, joint pain Skin: Denies: rash Neurological: Denies: headache, numbness Endocrine: Denies: increased thirst, increased urine Hematologic/Lymphatic: Denies: easy bruising All Other Systems: negative except mentioned in HPI Physical Exam Vital Signs Date Time Temp Pulse Resp B/P (MAP) Pulse Ox O2 Delivery O2 Flow Rate FiO2 05/08/18 22:36 96 18 162/90 95 Nasal Cannula 4.0 vitals with high blood pressure Medical Decision Making Diagnostic Impression: Primary Impression: COPD with exacerbation Additional Impression: HCAP (healthcare-associated pneumonia) ER Course Patient presents with shortness of breath and has rhonchi and wheezing. She has COPD exacerbation with probable secondary infiltrate. This is most likely viral in nature. I went ahead and cover her with antibiotics. She felt better after breathing treatment. No evidence of ACS, PE, dissection to name a few. Discussed the case with Dr. Sifuentes who will admit. Lab Results Impression labs unremarkable EKG Diagnostic Results Rate: normal Rhythm: NSR ST Segments: other - NSST changes Rhythm Strip Diag. Results EP Interpretation: yes Rate: 96 Rhythm: NSR, no PVC's, no ectopy Chest X-Ray Diagnostic Results Chest X-Ray Diagnostic Results : Chest X-Ray Ordered: Yes # of Views/Limited/Complete: 1 View Indication: Shortness of Breath EP Interpretation: Yes Interpretation: no effusion, no pneumothorax, other - RLL infiltrate Impression: Other - RLL infiltrate Electronically Signed by: Ortega Maki MD Last Vital Signs Date Time Temp Pulse Resp B/P (MAP) Pulse Ox O2 Delivery O2 Flow Rate FiO2 05/08/18 22:36 96 18 162/90 95 Nasal Cannula 4.0 Status: improved Disposition: ADMITTED INPATIENT Condition: Serious Ortega Maki MD May 08, 2018 22:50
--- NOTE | 2018-05-08 23:00 | NUR ---
ED Nurse Note: RECIEVED PT BIBA FROM SNF WITH C/O SOB FOR 1 WEEK, PT IS DIALYSIS PT, HAVE NOT MISSED AND HAD DONE TODAY BUT STATES NO RELIEF FROM SOB, PT IS AWAKE, ALERT AND ORIENTED X 4, DENIES CP OR ANY PAIN, MILD SOB NOTED WITH WHEEZES HEARD, PT IMMEDIATELY ASSISTED TO GOWNING AND CARDIAC MONITORING, WILL RESUME CARE ORDERED AND CONTINUE TO CLOSELY MONITOR.
[2018-05-08] MEDS ORDERED: CALCIUM ACETAT667 MG PO (23:13)
[2018-05-08] MEDS ORDERED: BISACODYL10 M1 RC (23:13)
[2018-05-08] MEDS ORDERED: ZINC OXIDE56.7 G1 TP (23:13)
[2018-05-08] MEDS ORDERED: GLUCAGON W/DILUE1 MG IJ (23:13)
[2018-05-08] MEDS ORDERED: METOPROLOL TART25 MG ORAL (23:13)
[2018-05-08] MEDS ORDERED: FLOVENT DISKUS50 MCG IH (23:13)
[2018-05-08] MEDS ORDERED: NEPHROVITE1 TAB ORAL (23:13)
[2018-05-08] MEDS ORDERED: CALCIUM ACETAT667 M1 PO (23:13)
[2018-05-08] MEDS ORDERED: IPRATROPIU0.2 MG/1 M HHN (23:13)
[2018-05-08] MEDS ORDERED: PREDNISONE5 M3 PO (23:13)
[2018-05-08] MEDS ORDERED: AMBIEN5 MG ORAL (23:13)
[2018-05-08] MEDS ORDERED: MOM30 ML ORAL (23:13)
[2018-05-08] MEDS ORDERED: NOVOLOG100 UNIT/5 (23:13)
[2018-05-08] MEDS ORDERED: LORATADINE10 M2 PO (23:13)
[2018-05-08] MEDS ORDERED: ATORVASTATIN CA20 MG ORAL (23:13)
[2018-05-08] MEDS ORDERED: Piperacillin/Tazobactam 3.375 GM in NS 110 ML IVPB ONE (23:15)
[2018-05-09] VITALS (7 sets, daily range): BP systolic 126–152; BP diastolic 57–70
[2018-05-09 00:07] LABS: ANION GAP 12 mmol/L (5-15); BLOOD UREA NITROGEN 39 mg/dL (7-18); CALCIUM 9.1 MG/DL (8.5-10.1); CARBON DIOXIDE 26 MMOL/L (21-32); CHLORIDE 98 MMOL/L (98-107); CREATININE 6.9 MG/DL (0.55-1.30); POTASSIUM 4.2 MMOL/L (3.5-5.1); SODIUM 136 MMOL/L (136-145)
[2018-05-09 00:12] LABS: BASOPHILS % (AUTO) 2.2 % (0.0-2.0); EOSINOPHILS % (AUTO) 11.2 % (0.0-3.0); HEMATOCRIT 36.8 % (37.0-47.0); HEMOGLOBIN 11.9 G/DL (12.0-16.0); LYMPHOCYTES % (AUTO) 35.9 % (20.0-45.0); MEAN CORPUSCULAR VOLUME 92 FL (80-99); MONOCYTES % (AUTO) 10.7 % (1.0-10.0); NEUTROPHILS % (AUTO) 40.2 % (45.0-75.0); PLATELET COUNT 165 K/UL (150-450); RED BLOOD COUNT 3.99 M/UL (4.20-5.40); RED CELL DISTRIBUTION WIDTH 15.6 % (11.6-14.8); WHITE BLOOD COUNT 7.8 K/UL (4.8-10.8)
[2018-05-09] MEDS ORDERED: Albuterol ud Inhalation HHN ONE (00:15)
[2018-05-09 00:20] LABS: ALANINE AMINOTRANSFERASE 35 U/L (12-78); ALBUMIN 3.6 G/DL (3.4-5.0); ALBUMIN/GLOBULIN RATIO 0.7 (1.0-2.7); ALKALINE PHOSPHATASE 94 U/L (46-116); ASPARTATE AMINO TRANSFERASE 31 U/L (15-37); BILIRUBIN,TOTAL 0.2 MG/DL (0.2-1.0); CKMB 1.5 NG/ML (0.0-3.6); CREATINE KINASE 98 U/L (26-308)
--- NOTE | 2018-05-09 01:00 | NUR ---
ED Nurse Note: PT RESTING IN BED QUIETLY, AWAKE AND ALERT, NO PAIN OR CHAGNES NOTED, PT HAS PATENT IV LINE, COMPLETED IV ANTIBIOTICS WITH NO S/S OF ADVERSE REACTION NOTED, PT TOLERATED WELL, V/S STABLE, SITE INTACT AND PATENT, PT ALSO COMPLETED BREATHING TREATMENTS AND STATES FEELS A BIT BETTER BUT REMAINS WITH MILD WHEEZES HEARD, PT IS TO BE ADMITTED, WILL CONTINUE TO CLOSELY MONITOR AND PREAPRE FOR ADMISSION.
--- NOTE | 2018-05-09 02:00 | NUR ---
ED Nurse Note: PT HAS ROOM FOR ADMISSION, REPORT CALLED TO FLOOR NURSE EMILY, PT IS IN BED AWAKE, ALERT AND ORIENTED X 4, CONTINUES TO DENY PAIN, IV SITE PATENT, NO SOB NOTED, BELONGINGS LIST COMPLETED, PT BEING TAKEN TO FLOOR UNIT VIA GURNEY AND ER-TECH, NAD NOTED DURING PT TRANSPORT.
--- NOTE | 2018-05-09 06:39 | NUR ---
NURSE NOTES: Admitted 68 year old female, A& O x 4, on 2 liters O2. Patient is legally blind. Informed Dr. Armenta of admission, called him 3 times,but no response yet, charge nurse is aware.
[2018-05-09] MEDS ORDERED: Simethicone 80mg tab ORAL PRN (07:15)
--- NOTE | 2018-05-09 07:30 | NUR ---
HAND-OFF: Report given to GEORGINA Gao. Spoke to . Orders of Dr. Sifuentes entered on the computer.
--- NOTE | 2018-05-09 07:37 | NUR ---
NURSE NOTES: Patient alert x4, on nasal cannula 2 liter, no sign of distress and shortness of breath; Skin intact. IV right wrist, flushes well. Right chest permchat in place, patient getting dialysis MWF. Bed at lowest position, side rails up, breaks engaged. Call light within reach. Will keep monitoring.
--- NOTE | 2018-05-09 07:57 | NUR ---
NURSE NOTES: Called [facility] for patient's dialysis today. Spoke with Pooja.
[2018-05-09] MEDS ORDERED: Glucagon 1mg Inj IM PRN (08:15)
--- NOTE | 2018-05-09 08:41 | NUR ---
NURSE NOTES: Spoke to Tommy Andrews, dialysis nurse. Confirmed for today's dialysis will come in the afternoon.
[2018-05-09] MEDS ORDERED: Calcium Acetate 667mg Tab ORAL SCH (09:00)
[2018-05-09] MEDS: Metoprolol 25mg tab ORAL SCH ×2 (09:00→20:32)
[2018-05-09] MEDS: Milk of Magnesia 30ml Ud ORAL SCH (09:35)
[2018-05-09] MEDS: Nephrovite tab (Rena-Vite) ORAL SCH (09:36)
[2018-05-09] MEDS: Sertraline 50mg tab ORAL SCH (09:36)
[2018-05-09] MEDS: Docusate 100mg cap ORAL SCH ×2 (09:36→17:07)
[2018-05-09] MEDS: Aspirin EC 81mg tab ORAL SCH (09:36)
[2018-05-09] MEDS: HYDROcodone/Acetamin 7.5/325 tab ORAL PRN ×3 (09:38→18:48)
[2018-05-09] MEDS: Heparin 5000 units/ml inj SUBQ SCH ×2 (09:40→20:41)
[2018-05-09] MEDS: Ipratropium 0.02% Inh Soln 2.5ml UD HHN PRN ×3 (09:50→21:07)
--- NOTE | 2018-05-09 11:47 | Diagnostic Imaging Report ---
Indication: Shortness of breath Technique: One view of the chest Comparison: 03/17/2018 Findings: The heart is borderline enlarged. There is a right chest tunneled dialysis catheter again demonstrated. The lungs and pleural spaces are clear. Impression: Borderline cardiomegaly. No definite acute process
[2018-05-09] MEDS: Zosyn 2.25 gm in D5W 55ml IV SCH ×2 (12:00→18:43)
[2018-05-09] MEDS: NovoLOG Insulin Flexpen SUBQ SCH ×3 (12:06→20:39)
[2018-05-09] MEDS ORDERED: Heparin Sod 1000 units/ml 10ml IV PRN (16:55)
[2018-05-09] MEDS ORDERED: Heparin 1000 units/ml 1ml Vial INJ PRN (16:55)
--- NOTE | 2018-05-09 16:58 | NUR ---
NURSE NOTES: Patient signed consent for Hemodialysis, consent on chart, patient is getting dialysis. Will keep monitoring.
[2018-05-09] MEDS: Calcium Acetate 667mg Tab ORAL SCH (17:07)
--- NOTE | 2018-05-09 19:33 | NUR ---
HAND-OFF: Report given to GEORGINA Dior.
--- NOTE | 2018-05-09 19:55 | NUR ---
NURSE NOTES: Patient resting in bed awake and alert x4, on NC at 2L, no s/s distress noted. Able to make needs known. Instucted to use call light for assistance. Call light within reach.
--- NOTE | 2018-05-09 20:28 | NUR ---
CASE MANAGEMENT: REVIEW 68/F BIBA FROM [facility] CC: RESP DISTRESS SI: COPD EXACERBATION T 98.8 HR 114 RR 26 BP 126/61 SAT 95% NC/3L BUN 39 CR 6.9 IS: SOLU MEDROL IV X1 ALBUTEROL HHN X1 ATROVENT HHN X1 LEVOFLOXACIN IV X1 ZOSYN IV X1 PATIENT ADMITTED TO MED/SURG UNIT 05/08/2018 DCP: PATIENT IS FROM [facility]
[2018-05-09] MEDS: Solu-MEDROL 40mg Inj IVP SCH (21:02)
--- NOTE | 2018-05-09 21:15 | History and Physical Report ---
DATE OF ADMISSION: 05/08/2018 CHIEF COMPLAINT: Shortness of breath. HISTORY OF PRESENT ILLNESS: This is a 68-year-old female, who is a resident of group home. The patient despite having dialysis yesterday came back to the group home and was complaining bitterly about extreme shortness of breath. Despite repeated breathing treatment, she continued to have shortness of breath. She was transferred to the ER for further evaluation. PAST MEDICAL HISTORY: 1. End-stage renal failure, on dialysis. 2. Combined the congestive heart failure. 3. COPD. 4. Type 2 diabetes mellitus. 5. Liver cirrhosis. 6. Diabetic retinopathy with blindness. 7. Diabetic neuropathy. 8. Anemia of chronic kidney disease. 9. DNR. MEDICATIONS: Tylenol p.r.n., albuterol inhalation, amlodipine, baby aspirin, atorvastatin, Dulcolax, PhosLo, calcium acetate, Benadryl p.r.n., Colace, famotidine, insulin sliding scale, subcutaneous heparin, [place] p.r.n., Atrovent inhaler, loratadine, Lopressor, milk of magnesia, Nephro-Melinda, Zoloft, simethicone, Ambien. ALLERGIES: No known drug allergies. FAMILY HISTORY: Unremarkable. SOCIAL HISTORY: She lives in group home. HABITS: She is nonsmoker and nondrinker. There is no history of illicit drug abuse. REVIEW OF SYSTEMS: HEENT: She is blind. ENDOCRINE: She has type 2 diabetes mellitus with multiorgan failure. RESPIRATORY: Please refer to past medical history and history of present illness. GENITOURINARY: She denies dysuria, frequency, urgency, or hematuria. CARDIAC: She denies chest pain or palpitations. PHYSICAL EXAMINATION: GENERAL: This is an elderly, chronically ill-appearing female, who is in no acute distress. VITAL SIGNS: Blood pressure 140/65, pulse 93 regular, respirations 20, and temperature 98.8 oral. HEENT: The head is normocephalic and atraumatic. She is blind. NECK: Supple. Trachea midline. No lymphadenopathy or thyromegaly. LUNGS: Bilateral wheezes. HEART: Regular rate and rhythm without rubs, murmurs, or gallops. ABDOMEN: Soft and nontender. Bowel sounds were active. EXTREMITIES: No clubbing, cyanosis, or edema. She has a left upper arm AV fistula, which is minimal. She also has right internal jugular PermCath. NEUROLOGIC: She is blind, otherwise no focal findings. LABORATORY AND ANCILLARY DATA: Chest x-ray notable for borderline cardiomegaly, otherwise no acute process. CBC within normal limits. Chemistry, BUN 39, creatinine 6.9. Troponin level 0.043. ASSESSMENT: 1. COPD exacerbation. 2. End-stage renal failure on dialysis. 3. The combined the congestive heart failure. 4. COPD. 5. Type 2 diabetes mellitus. 6. Liver cirrhosis. 7. Diabetic retinopathy with blindness. 8. Diabetic neuropathy. 9. Anemia of chronic kidney disease. 10. DNR. PLAN: 1. IV steroid boluses. 2. Intensive respiratory treatment. 3. Try to ultrafilter more fluids. Madison Sifuentes M.D. DR: TOMÁS JOB#: [id number] CC:
--- NOTE | 2018-05-09 21:50 | NUR ---
NURSE NOTES: Dr Dyson at the bedside to see pt. Order noted and carried out.
[2018-05-09] MEDS: Zolpidem 5mg tab ORAL PRN (22:12)
--- NOTE | 2018-05-09 23:15 | Consultation ---
DATE OF CONSULTATION: 05/09/2018 PULMONARY CONSULTATION CONSULTING PHYSICIAN: Fabian Centeno M.D. REASON FOR CONSULTATION: Shortness of breath and COPD. HISTORY OF PRESENT ILLNESS: The patient is a 68-year-old female with history of hypertension and end-stage renal disease, on dialysis. The patient presents with increasing shortness of breath over the past one week and noted some low-grade fevers. Also, the patient required more oxygen. The patient has cough, productive of some sputum. The patient is seen and evaluated in the emergency room and now being admitted for diagnosis of COPD exacerbation. The patient did have imaging while in the emergency room. Findings demonstrated no significant infiltrates and no significant pulmonary edema. The patient's care discussed and reviewed. The ER notes reviewed. PAST MEDICAL HISTORY: Hypertension, end-stage renal disease, cirrhosis, hemodialysis dependent, diabetes, and legal blindness. MEDICATIONS: Reviewed. ALLERGIES: Reviewed. SOCIAL HISTORY: Nonsmoker and nondrinker. Disabled currently. REVIEW OF SYSTEMS: Somewhat difficult to obtain. All 10 points reviewed and notable for the reduced vision, mild sore throat, cough, and shortness of breath. No chest pain. No palpitations. Minimal edema. No reflux. No heartburn. No aspiration. No significant skin findings. No focal weakness at present. PHYSICAL EXAMINATION: GENERAL: This is an ill-appearing female, appears older than her stated age. VITAL SIGNS: Blood pressure 146/70, pulse 93, saturation 100% on two liters, and temperature 98. HEENT: Fairly negative. Extraocular movements are grossly intact. Oropharynx is moist. NECK: Jugular venous distention minimal. LUNGS: With reduced breath sounds. No expiratory wheezes. CARDIAC: S1 and S2. Regular rate and rhythm without murmurs, rubs, or gallops. ABDOMEN: Soft, nontender, and nondistended. EXTREMITIES: No cyanosis or clubbing. Mild edema. NEUROLOGICAL: Weak, nonfocal, and alert. LABORATORY AND DIAGNOSTIC DATA: Laboratory data reviewed. White count 7.8, hematocrit 36, and platelets of 165,000. Chemistries, BUN 39, creatinine 6.9. The albumin of 3.6. X-ray is noted and reviewed. IMPRESSION: 1. Chronic obstructive pulmonary disease with acute exacerbation. 2. End-stage renal disease. No clear evidence of fluid overload. 3. Hypertension. 4. Blindness. 5. Diabetes. RECOMMENDATIONS: Supportive care. Resume medication. The patient on low-dose prednisone, but was given one dose of IV Solu-Medrol. DVT prophylaxis. Hemodialysis with ultrafiltration. Monitor clinically for change. Provide albuterol therapy and reassess for further changes and recommendations. No clear need for antibiotics at this time. Fabian Centeno M.D. DR: MARVA JOB#: [id number] CC: CHERYL
[2018-05-10] VITALS (7 sets, daily range): BP systolic 110–129; BP diastolic 49–81
[2018-05-10] MEDS: Zosyn 2.25 gm in D5W 55ml IV SCH ×3 (02:36→18:01)
[2018-05-10] MEDS: Ipratropium 0.02% Inh Soln 2.5ml UD HHN PRN ×2 (03:56→08:32)
[2018-05-10] MEDS: HYDROcodone/Acetamin 7.5/325 tab ORAL PRN ×3 (04:05→14:56)
[2018-05-10] MEDS: NovoLOG Insulin Flexpen SUBQ SCH ×4 (05:54→20:34)
--- NOTE | 2018-05-10 07:03 | NUR ---
HAND-OFF: Report given to Sima ERICKSON.
--- NOTE | 2018-05-10 07:05 | General Progress Note ---
Progress Note Progress Note Patient seen and examined earlier 2+ thrill left arm av shunt Right chest permcath c/d/i Admitted with SOB+ Rec Av shunt duplex CT angio chest and echo Cards and pulm jesus d/w pt and nurse at bedside Amarjit Dyson MD May 10, 2018 07:05
[2018-05-10 07:10] LABS: BASOPHILS % (AUTO) 1.2 % (0.0-2.0); EOSINOPHILS % (AUTO) 0.1 % (0.0-3.0); HEMATOCRIT 36.2 % (37.0-47.0); HEMOGLOBIN 11.7 G/DL (12.0-16.0); LYMPHOCYTES % (AUTO) 23.8 % (20.0-45.0); MEAN CORPUSCULAR VOLUME 93 FL (80-99); MONOCYTES % (AUTO) 8.2 % (1.0-10.0); NEUTROPHILS % (AUTO) 66.7 % (45.0-75.0); PLATELET COUNT 184 K/UL (150-450); RED CELL DISTRIBUTION WIDTH 15.7 % (11.6-14.8); WHITE BLOOD COUNT 7.7 K/UL (4.8-10.8)
--- NOTE | 2018-05-10 07:21 | NUR ---
NURSE NOTES: Patient alert x4, on nasal cannula at 2 liter, no sign of distress and shortness of breath. No sign of chest pain. Skin intact; IV R-wrist flushes well; patient scheduled to get dialysis today, I called and talk to Felisa yesterday, she said the dialysis nurse will call to confirm the dialysis however dialysis nurse didn't call on PM and I called this morning and talk to Penelope at [facility], she said the dialysis nurse will call to confirm, will follow up on that. Bed at lowest position, side rails up x2, breaks engaged. The dialysis nurse confirm and patient gonna have dialysis today. Call light within reach. Will keep monitoring.
[2018-05-10 07:25] LABS: ANION GAP 12 mmol/L (5-15); BLOOD UREA NITROGEN 57 mg/dL (7-18); CALCIUM 9.3 MG/DL (8.5-10.1); CARBON DIOXIDE 25 MMOL/L (21-32); CHLORIDE 94 MMOL/L (98-107); CREATININE 7.5 MG/DL (0.55-1.30); POTASSIUM 5.7 MMOL/L (3.5-5.1); SODIUM 131 MMOL/L (136-145)
[2018-05-10] MEDS ORDERED: Heparin Sod 1000 units/ml 10ml IV PRN (08:00)
[2018-05-10] MEDS: Solu-MEDROL 40mg Inj IVP SCH ×2 (08:41→20:29)
[2018-05-10] MEDS: Nephrovite tab (Rena-Vite) ORAL SCH (08:41)
[2018-05-10] MEDS: Aspirin EC 81mg tab ORAL SCH (08:41)
[2018-05-10] MEDS: Sertraline 50mg tab ORAL SCH (08:41)
[2018-05-10] MEDS: Calcium Acetate 667mg Tab ORAL SCH ×3 (08:41→17:00)
[2018-05-10] MEDS: Docusate 100mg cap ORAL SCH ×2 (08:41→17:00)
[2018-05-10] MEDS: Milk of Magnesia 30ml Ud ORAL SCH (08:42)
[2018-05-10] MEDS: Metoprolol 25mg tab ORAL SCH ×2 (08:42→20:29)
[2018-05-10] MEDS: Heparin 5000 units/ml inj SUBQ SCH ×2 (08:43→20:30)
--- NOTE | 2018-05-10 09:01 | Pulmonology Progress Note ---
Assessment/Plan Assessment/Plan IMPRESSION: 1. Chronic obstructive pulmonary disease with acute exacerbation. 2. End-stage renal disease 3. Hypertension. 4. Blindness. 5. Diabetes. PLAN respiratory care oxygen HD keep negative follow up for change IV solumedrol and taper impression, plan, and exam edited and reviewed in detail care discussed with RN Subjective Allergies: Coded Allergies: No Known Allergies (Unverified , 12/01/17) Subjective care noted follow up reviewed Objective Last 24 Hour Vital Signs Date Time Temp Pulse Resp B/P (MAP) Pulse Ox O2 Delivery O2 Flow Rate FiO2 05/10/18 08:42 85 127/71 05/10/18 08:41 85 127/71 05/10/18 08:32 85 20 99 Nasal Cannula 2.0 28 05/10/18 08:30 99 Nasal Cannula 2.0 28 05/10/18 08:30 Nasal Cannula 2.0 28 05/10/18 08:00 98.7 92 19 127/71 (89) 95 05/10/18 04:00 98.7 89 18 125/68 (87) 95 05/10/18 03:58 109 20 99 Nasal Cannula 2.0 28 05/10/18 03:46 109 20 96 Nasal Cannula 2.0 28 05/10/18 00:00 99.0 90 18 129/81 (97) 100 05/09/18 21:10 Nasal Cannula 2.0 28 05/09/18 21:09 95 Nasal Cannula 2.0 28 05/09/18 21:08 110 20 100 Nasal Cannula 2.0 28 05/09/18 21:00 Nasal Cannula 2.0 05/09/18 21:00 106 22 95 Nasal Cannula 2.0 28 05/09/18 20:32 93 146/70 05/09/18 20:31 98.8 93 20 146/70 (95) 98 05/09/18 19:18 98.8 05/09/18 16:00 98.8 93 20 140/65 (90) 98 05/09/18 14:30 106 20 100 Nasal Cannula 2.0 28 05/09/18 14:20 98 24 99 Nasal Cannula 3.0 05/09/18 12:00 98.8 97 20 126/61 (82) 95 05/09/18 09:51 114 26 100 Nasal Cannula 2.0 28 05/09/18 09:45 102 24 97 Nasal Cannula 3.0 Intake and Output 05/09/18 05/10/18 19:00 07:00 Intake Total 480 ml 415 ml Balance 480 ml 415 ml Intake Oral 480 ml 360 ml IV Total 55 ml # Voids 2 Objective GENERAL: This is an ill-appearing female, appears older than her stated age. HEENT: Fairly negative. Extraocular movements are grossly intact. Oropharynx is moist. NECK: Jugular venous distention minimal. LUNGS: With reduced breath sounds. No expiratory wheezes. CARDIAC: S1 and S2. Regular rate and rhythm without murmurs, rubs, or gallops. ABDOMEN: Soft, nontender, and nondistended. EXTREMITIES: No cyanosis or clubbing. Mild edema. NEUROLOGICAL: Weak, nonfocal, and alert. Microbiology Date/Time Source Procedure Growth Status 05/08/18 23:45 Blood Blood Culture - Preliminary NO GROWTH AFTER 24 HOURS Resulted 05/08/18 23:30 Blood Blood Culture - Preliminary NO GROWTH AFTER 24 HOURS Resulted Laboratory Tests 05/10/18 06:10: White Blood Count 7.7, Red Blood Count 3.90L, Hemoglobin 11.7L, Hematocrit 36.2L , Mean Corpuscular Volume 93, Mean Corpuscular Hemoglobin 30.0, Mean Corpuscular Hemoglobin Concent 32.3, Red Cell Distribution Width 15.7H, Platelet Count 184, Mean Platelet Volume 5.5L, Neutrophils (%) (Auto) 66.7, Lymphocytes (%) (Auto) 23.8, Monocytes (%) (Auto) 8.2, Eosinophils (%) (Auto) 0.1, Basophils (%) (Auto) 1.2, Sodium Level [Pending], Potassium Level [Pending] , Chloride Level [Pending], Carbon Dioxide Level [Pending], Anion Gap 12, Blood Urea Nitrogen [Pending], Creatinine [Pending], Estimat Glomerular Filtration Rate [Pending], Glucose Level [Pending], Hemoglobin A1c 5.2, Calcium Level [ Pending], Troponin I 0.052 Current Medications Medications (Trade) Dose Ordered Sig/Parmjit Route PRN Reason Start Time Stop Time Status Last Admin Dose Admin Acetaminophen (Tylenol) 650 mg Q6H PRN ORAL Mild Pain (Pain Scale 1-3) 05/09/18 07:15 06/08/18 07:14 Acetaminophen/ Hydrocodone Bitart ([place] 7.5/325) 1 tab Q4H PRN ORAL Moderate Pain (Pain Scale 4-6) 05/09/18 07:15 05/16/18 07:14 05/10/18 08:42 Amlodipine Besylate (Norvasc) 5 mg DAILY ORAL 05/09/18 09:00 06/08/18 08:59 05/10/18 08:41 Aspirin (Ecotrin) 81 mg DAILY ORAL 05/09/18 09:00 06/08/18 08:59 05/10/18 08:41 Atorvastatin Calcium (Lipitor) 20 mg BEDTIME ORAL 05/09/18 21:00 06/08/18 20:59 05/09/18 20:33 Bisacodyl (Dulcolax) 10 mg DAILYPRN PRN RECTAL Constipation 05/09/18 07:15 06/08/18 07:14 Calcium Acetate (Phoslo) 667 mg THREE TIMES A DAY ORAL 05/09/18 18:00 06/08/18 17:59 05/10/18 08:41 Dextrose (Dextrose 50%) 25 ml Q30M PRN IV Hypoglycemia 05/09/18 07:15 06/08/18 07:14 Dextrose (Dextrose 50%) 50 ml Q30M PRN IV Hypoglycemia 05/09/18 07:15 06/08/18 07:14 Diphenhydramine HCl (Benadryl) 25 mg Q6H PRN ORAL Itching 05/09/18 07:15 06/08/18 07:14 Docusate Sodium (Colace) 100 mg TWICE A DAY ORAL 05/09/18 09:00 06/08/18 08:59 05/10/18 08:41 Famotidine (Pepcid) 20 mg DAILY ORAL 05/09/18 09:00 06/08/18 08:59 05/10/18 08:41 Glucagon (Glucagon) 1 mg DAILYPRN PRN IM blood glucose <60 05/09/18 08:15 06/08/18 08:14 Heparin Sodium (Porcine) (Heparin 5000 units/ml) 5,000 units EVERY 12 HOURS SUBQ 05/09/18 09:00 06/08/18 08:59 05/10/18 08:43 Heparin Sodium (Porcine) (Heparin Sod 1000 units/ml 10ml) 2,000 unit ONCE PRN IV dialysis 05/09/18 16:55 05/10/18 23:59 Heparin Sodium (Porcine) (Heparin) 1,000 unit POSTHD PRN INJ POST HD 05/09/18 16:55 05/10/18 23:59 Insulin Aspart (NovoLOG) BEFORE MEALS AND HS SUBQ 05/09/18 11:30 06/08/18 11:29 05/10/18 05:54 Ipratropium [place] (Atrovent) 500 mcg Q4H PRN HHN Shortness of Breath 05/09/18 07:15 05/14/18 07:14 05/10/18 08:32 Levofloxacin 50 ml @ 50 mls/hr Q48H IVPB 05/11/18 10:00 05/18/18 09:59 Loratadine (Claritin 10mg) 10 mg DAILYPRN PRN ORAL runny nose, nasal irritation, 05/09/18 07:15 06/08/18 07:14 Magnesium Hydroxide (Mom) 15 ml DAILY ORAL 05/09/18 09:00 06/08/18 08:59 05/10/18 08:42 Methylprednisolone Sodium Succinate (Solu-MEDROL) 40 mg EVERY 12 HOURS IVP 05/09/18 21:00 06/08/18 20:59 05/10/18 08:41 Metoprolol Tartrate (Lopressor) 25 mg EVERY 12 HOURS ORAL 05/09/18 09:00 06/08/18 08:59 05/10/18 08:42 Piperacillin Sod/ Tazobactam Sod 2.25 gm/Dextrose 55 ml @ 110 mls/hr Q8H IV 05/09/18 11:00 05/16/18 10:59 05/10/18 02:36 Sertraline HCl (Zoloft) 50 mg DAILY ORAL 05/09/18 09:00 06/08/18 08:59 05/10/18 08:41 Simethicone (Mylicon) 80 mg Q8H PRN ORAL GAS PAIN 05/09/18 07:15 06/08/18 07:14 Sodium Chloride 1,000 ml @ 500 mls/hr Q2H PRN IVLG sbp<90 during hd 05/09/18 16:54 05/10/18 23:59 Vitamin B Complex/ Vit C/Folic Acid (Nephrovite) 1 tab DAILY ORAL 05/09/18 09:00 06/08/18 08:59 05/10/18 08:41 Zolpidem Tartrate (Ambien) 5 mg HSPRN PRN ORAL Insomnia 05/09/18 07:15 05/16/18 07:14 05/09/18 22:12 Fabian Centeno MD May 10, 2018 09:01
--- NOTE | 2018-05-10 13:45 | NUR ---
NURSE NOTES: Patient is getting dialysis. Will keep monitoring.
--- NOTE | 2018-05-10 14:20 | Nephrology Progress Note ---
Assessment/Plan Plan COPD Exacerbation - IV Steroids, ABX, Pulmonary following. Severe CHF - Increasing UF on HD. Cardiology consulted. Check Echo Subjective Subjective Still very SOB!! Objective Objective Last 24 Hour Vital Signs Date Time Temp Pulse Resp B/P (MAP) Pulse Ox O2 Delivery O2 Flow Rate FiO2 05/10/18 12:00 97.4 75 20 124/59 (80) 97 05/10/18 09:12 98.7 05/10/18 09:00 Nasal Cannula 2.0 05/10/18 08:42 80 20 99 Nasal Cannula 2.0 28 05/10/18 08:42 85 127/71 05/10/18 08:41 85 127/71 05/10/18 08:32 85 20 99 Nasal Cannula 2.0 28 05/10/18 08:30 99 Nasal Cannula 2.0 28 05/10/18 08:30 Nasal Cannula 2.0 28 05/10/18 08:00 98.7 92 19 127/71 (89) 95 05/10/18 04:00 98.7 89 18 125/68 (87) 95 05/10/18 03:58 109 20 99 Nasal Cannula 2.0 28 05/10/18 03:46 109 20 96 Nasal Cannula 2.0 28 05/10/18 00:00 99.0 90 18 129/81 (97) 100 05/09/18 21:10 Nasal Cannula 2.0 28 05/09/18 21:09 95 Nasal Cannula 2.0 28 05/09/18 21:08 110 20 100 Nasal Cannula 2.0 28 05/09/18 21:00 Nasal Cannula 2.0 05/09/18 21:00 106 22 95 Nasal Cannula 2.0 28 05/09/18 20:32 93 146/70 05/09/18 20:31 98.8 93 20 146/70 (95) 98 05/09/18 16:00 98.8 93 20 140/65 (90) 98 05/09/18 14:30 106 20 100 Nasal Cannula 2.0 28 05/09/18 14:20 98 24 99 Nasal Cannula 3.0 Intake and Output 05/09/18 05/10/18 19:00 07:00 Intake Total 480 ml 415 ml Balance 480 ml 415 ml Intake Oral 480 ml 360 ml IV Total 55 ml # Voids 2 Laboratory Tests 05/10/18 06:10: White Blood Count 7.7, Red Blood Count 3.90L, Hemoglobin 11.7L, Hematocrit 36.2L , Mean Corpuscular Volume 93, Mean Corpuscular Hemoglobin 30.0, Mean Corpuscular Hemoglobin Concent 32.3, Red Cell Distribution Width 15.7H, Platelet Count 184, Mean Platelet Volume 5.5L, Neutrophils (%) (Auto) 66.7, Lymphocytes (%) (Auto) 23.8, Monocytes (%) (Auto) 8.2, Eosinophils (%) (Auto) 0.1, Basophils (%) (Auto) 1.2, Sodium Level [Pending], Potassium Level [Pending] , Chloride Level [Pending], Carbon Dioxide Level [Pending], Anion Gap 12, Blood Urea Nitrogen [Pending], Creatinine [Pending], Estimat Glomerular Filtration Rate [Pending], Glucose Level [Pending], Hemoglobin A1c 5.2, Calcium Level [ Pending], Troponin I 0.052 Height (Feet): 5 Height (Inches): 3.00 Weight (Pounds): 175 Objective Blind. CV RR Lungs B wheezes!! Abd SNT BS + E No CCE Madison Sifuentes MD May 10, 2018 14:20
--- NOTE | 2018-05-10 14:45 | NUR ---
NURSE NOTES: Dialysis nurse removed 2.5 liter. Patient is stable. Will keep monitoring.
[2018-05-10] MEDS: Ipratropium 0.02% Inh Soln 2.5ml UD HHN SCH ×3 (14:59→23:36)
--- NOTE | 2018-05-10 16:40 | Cardiology Report ---
APPROVED REPORT EXAM: Two-dimensional and M-mode echocardiogram with Doppler and color Doppler. INDICATION Congestive Heart Failure M-Mode DIMENSIONS IVSd1.5 (0.7-1.1cm)Left Atrium (MM)3.7 (1.6-4.0cm) LVDd5.4 (3.5-5.6cm)Aortic Root3.6 (2.0-3.7cm) PWd1.0 (0.7-1.1cm)Aortic Cusp Exc.2.1 (1.5-2.0cm) LVDs3.9 (2.5-4.0cm) PWs1.7 cm Technically difficult study due to poor acoustical windows. Normal left ventricular chamber size. Global hypokinesis with melissa-septal akinesis. Left ventricular ejection fraction estimated to be 35-40 %. Mild left ventricular hypertrophy by 2D. No evidence of pericardial effusion. Left atrial size at upper limits of normal. Right cardiac chamber sizes are within normal limits. Focal aortic valve sclerosis with adequate cusp excursion. Thickened mitral valve leaflets with normal excursion. Mitral annulus and aortic root calcification. Pulmonic valve not well visualized. Normal tricuspid valve structure. IVC dilated at 2.0 cm with slight physiologic collapse A color flow and spectral Doppler study was performed and revealed: Mild aortic regurgitation. Trace mitral regurgitation. Mitral diastolic velocities suggest reduced left ventricular relaxation c/w mild LV diastolic dysfunction (Grade I). Trace tricuspid regurgitation. Tricuspid systolic velocities suggests peak right ventricular systolic pressure of 25 mmHg
[2018-05-10 18:02] LABS: BASOPHILS % (AUTO) 0.8 % (0.0-2.0); HEMATOCRIT 37.6 % (37.0-47.0); HEMOGLOBIN 12.2 G/DL (12.0-16.0); LYMPHOCYTES % (AUTO) 21.7 % (20.0-45.0); MEAN CORPUSCULAR VOLUME 92 FL (80-99); MONOCYTES % (AUTO) 4.4 % (1.0-10.0); NEUTROPHILS % (AUTO) 73.1 % (45.0-75.0); PLATELET COUNT 184 K/UL (150-450); RED BLOOD COUNT 4.06 M/UL (4.20-5.40); RED CELL DISTRIBUTION WIDTH 15.6 % (11.6-14.8); WHITE BLOOD COUNT 8.9 K/UL (4.8-10.8)
[2018-05-10 18:17] LABS: ANION GAP 14 mmol/L (5-15); BLOOD UREA NITROGEN 47 mg/dL (7-18); CALCIUM 9.7 MG/DL (8.5-10.1); CARBON DIOXIDE 23 MMOL/L (21-32); CHLORIDE 94 MMOL/L (98-107); CREATININE 6.3 MG/DL (0.55-1.30); POTASSIUM 4.6 MMOL/L (3.5-5.1); SODIUM 131 MMOL/L (136-145)
--- NOTE | 2018-05-10 19:05 | NUR ---
HAND-OFF: Report given to GEORGINA Dior.
--- NOTE | 2018-05-10 19:49 | NUR ---
NURSE NOTES: Patient in bed asleep arousable to name. No acute distress noted. No c/o pain or discomfort at this time. Call light within reach.
[2018-05-11] VITALS: BP 113/72
[2018-05-11] MEDS: Ipratropium 0.02% Inh Soln 2.5ml UD HHN SCH ×6 (03:00→22:57)
[2018-05-11] MEDS: Zosyn 2.25 gm in D5W 55ml IV SCH ×3 (03:00→18:46)
[2018-05-11] MEDS: HYDROcodone/Acetamin 7.5/325 tab ORAL PRN ×3 (03:03→21:50)
[2018-05-11 04:00] VITALS: BP 131/82
[2018-05-11] MEDS: NovoLOG Insulin Flexpen SUBQ SCH ×4 (06:30→21:00)
--- NOTE | 2018-05-11 07:06 | NUR ---
HAND-OFF: Report given to Serena Bolden RN.
--- NOTE | 2018-05-11 07:42 | NUR ---
NURSE NOTES: received report from GEORGINA Dior. Patient alert, verbally responsive. no respiratory distress noted. no c/o pain at this time. bed in the lowest position. alarm on. call light within reach. will continue to monitor.
[2018-05-11 08:00] VITALS: BP 123/81
--- NOTE | 2018-05-11 08:20 | Pulmonology Progress Note ---
Assessment/Plan Assessment/Plan IMPRESSION: 1. Chronic obstructive pulmonary disease with acute exacerbation. 2. End-stage renal disease 3. Hypertension. 4. Blindness. 5. Diabetes. PLAN respiratory care oxygen HD keep negative follow up for change IV solumedrol dc and start prednisone impression, plan, and exam edited and reviewed in detail care discussed with RN Subjective Allergies: Coded Allergies: No Known Allergies (Unverified , 12/01/17) Subjective care noted follow up reviewed no distress at present Objective Last 24 Hour Vital Signs Date Time Temp Pulse Resp B/P (MAP) Pulse Ox O2 Delivery O2 Flow Rate FiO2 05/11/18 04:00 98.9 85 20 131/82 (98) 100 05/11/18 03:49 79 20 99 Nasal Cannula 2.0 28 05/11/18 03:40 78 20 99 Nasal Cannula 2.0 28 05/11/18 00:00 98.0 81 18 113/72 (86) 99 05/10/18 23:46 88 20 99 Nasal Cannula 2.0 28 05/10/18 23:34 83 20 99 Nasal Cannula 2.0 28 05/10/18 21:00 Nasal Cannula 2.0 05/10/18 20:29 91 110/78 05/10/18 20:21 91 20 99 Nasal Cannula 2.0 28 05/10/18 20:09 Nasal Cannula 2.0 28 05/10/18 20:09 99 20 98 Nasal Cannula 2.0 28 05/10/18 20:08 99 Nasal Cannula 2.0 28 05/10/18 20:00 97.7 86 18 110/78 (89) 98 05/10/18 16:00 97.8 77 20 122/61 (81) 98 05/10/18 15:26 97.4 05/10/18 15:10 85 20 99 Nasal Cannula 2.0 28 05/10/18 14:59 94 20 98 Nasal Cannula 2.0 28 05/10/18 12:00 97.4 75 20 124/59 (80) 97 05/10/18 09:00 Nasal Cannula 2.0 05/10/18 08:42 80 20 99 Nasal Cannula 2.0 28 05/10/18 08:42 85 127/71 05/10/18 08:41 85 127/71 05/10/18 08:32 85 20 99 Nasal Cannula 2.0 28 05/10/18 08:30 99 Nasal Cannula 2.0 28 05/10/18 08:30 Nasal Cannula 2.0 28 Intake and Output 05/10/18 05/11/18 19:00 07:00 Intake Total 860 ml 555 ml Balance 860 ml 555 ml Intake Oral 860 ml 500 ml IV Total 55 ml # Voids 2 1 Objective GENERAL: This is an ill-appearing female, appears older than her stated age. HEENT: Fairly negative. Extraocular movements are grossly intact. Oropharynx is moist. NECK: Jugular venous distention minimal. LUNGS: With reduced breath sounds. No expiratory rhonchi or wheezes. CARDIAC: S1 and S2. Regular rate and rhythm without murmurs, rubs, or gallops. ABDOMEN: Soft, nontender, and nondistended. EXTREMITIES: No cyanosis or clubbing. Mild edema. NEUROLOGICAL: Weak, nonfocal, and alert. Microbiology Date/Time Source Procedure Growth Status 05/08/18 23:45 Blood Blood Culture - Preliminary NO GROWTH AFTER 24 HOURS Resulted 05/08/18 23:30 Blood Blood Culture - Preliminary NO GROWTH AFTER 24 HOURS Resulted Laboratory Tests 05/10/18 17:48: White Blood Count 8.9, Red Blood Count 4.06L, Hemoglobin 12.2, Hematocrit 37.6, Mean Corpuscular Volume 92, Mean Corpuscular Hemoglobin 29.9, Mean Corpuscular Hemoglobin Concent 32.4, Red Cell Distribution Width 15.6H, Platelet Count 184, Mean Platelet Volume 5.7L, Neutrophils (%) (Auto) 73.1, Lymphocytes (%) (Auto) 21.7, Monocytes (%) (Auto) 4.4, Eosinophils (%) (Auto) 0.0, Basophils (%) (Auto ) 0.8, Sodium Level 131L, Potassium Level 4.6, Chloride Level 94L, Carbon Dioxide Level 23, Anion Gap 14, Blood Urea Nitrogen 47H, Creatinine 6.3H, Estimat Glomerular Filtration Rate 8.0, Glucose Level 167H, Calcium Level 9.7 Current Medications Medications (Trade) Dose Ordered Sig/Parmjit Route PRN Reason Start Time Stop Time Status Last Admin Dose Admin Acetaminophen (Tylenol) 650 mg Q6H PRN ORAL Mild Pain (Pain Scale 1-3) 05/09/18 07:15 06/08/18 07:14 Acetaminophen/ Hydrocodone Bitart ([place] 7.5/325) 1 tab Q4H PRN ORAL Moderate Pain (Pain Scale 4-6) 05/09/18 07:15 05/16/18 07:14 05/11/18 03:03 Amlodipine Besylate (Norvasc) 5 mg DAILY ORAL 05/09/18 09:00 06/08/18 08:59 05/10/18 08:41 Aspirin (Ecotrin) 81 mg DAILY ORAL 05/09/18 09:00 06/08/18 08:59 05/10/18 08:41 Atorvastatin Calcium (Lipitor) 20 mg BEDTIME ORAL 05/09/18 21:00 06/08/18 20:59 05/10/18 20:29 Bisacodyl (Dulcolax) 10 mg DAILYPRN PRN RECTAL Constipation 05/09/18 07:15 06/08/18 07:14 Calcium Acetate (Phoslo) 667 mg THREE TIMES A DAY ORAL 05/09/18 18:00 06/08/18 17:59 05/10/18 17:00 Dextrose (Dextrose 50%) 25 ml Q30M PRN IV Hypoglycemia 05/09/18 07:15 06/08/18 07:14 Dextrose (Dextrose 50%) 50 ml Q30M PRN IV Hypoglycemia 05/09/18 07:15 06/08/18 07:14 Diphenhydramine HCl (Benadryl) 25 mg Q6H PRN ORAL Itching 05/09/18 07:15 06/08/18 07:14 Docusate Sodium (Colace) 100 mg TWICE A DAY ORAL 05/09/18 09:00 06/08/18 08:59 05/10/18 17:00 Famotidine (Pepcid) 20 mg DAILY ORAL 05/09/18 09:00 06/08/18 08:59 05/10/18 08:41 Glucagon (Glucagon) 1 mg DAILYPRN PRN IM blood glucose <60 05/09/18 08:15 06/08/18 08:14 Heparin Sodium (Porcine) (Heparin 5000 units/ml) 5,000 units EVERY 12 HOURS SUBQ 05/09/18 09:00 06/08/18 08:59 05/10/18 20:30 Insulin Aspart (NovoLOG) BEFORE MEALS AND HS SUBQ 05/09/18 11:30 06/08/18 11:29 05/10/18 20:34 Ipratropium [place] (Atrovent) 500 mcg Q4HRT HHN 05/10/18 15:00 05/15/18 14:59 05/11/18 07:30 Levofloxacin 50 ml @ 50 mls/hr Q48H IVPB 05/11/18 10:00 05/18/18 09:59 Loratadine (Claritin 10mg) 10 mg DAILYPRN PRN ORAL runny nose, nasal irritation, 05/09/18 07:15 06/08/18 07:14 05/10/18 14:56 Magnesium Hydroxide (Mom) 15 ml DAILY ORAL 05/09/18 09:00 06/08/18 08:59 05/10/18 08:42 Methylprednisolone Sodium Succinate (Solu-MEDROL) 40 mg EVERY 12 HOURS IVP 05/09/18 21:00 06/08/18 20:59 05/10/18 20:29 Metoprolol Tartrate (Lopressor) 25 mg EVERY 12 HOURS ORAL 05/09/18 09:00 06/08/18 08:59 05/10/18 20:29 Piperacillin Sod/ Tazobactam Sod 2.25 gm/Dextrose 55 ml @ 110 mls/hr Q8H IV 05/09/18 11:00 05/16/18 10:59 05/11/18 03:00 Sertraline HCl (Zoloft) 50 mg DAILY ORAL 05/09/18 09:00 06/08/18 08:59 05/10/18 08:41 Simethicone (Mylicon) 80 mg Q8H PRN ORAL GAS PAIN 05/09/18 07:15 06/08/18 07:14 Vitamin B Complex/ Vit C/Folic Acid (Nephrovite) 1 tab DAILY ORAL 05/09/18 09:00 06/08/18 08:59 05/10/18 08:41 Zolpidem Tartrate (Ambien) 5 mg HSPRN PRN ORAL Insomnia 05/09/18 07:15 05/16/18 07:14 05/09/18 22:12 Fabian Centeno MD May 11, 2018 08:20
[2018-05-11] MEDS: Metoprolol 25mg tab ORAL SCH ×2 (08:41→21:48)
[2018-05-11] MEDS: Milk of Magnesia 30ml Ud ORAL SCH (08:41)
[2018-05-11] MEDS: Calcium Acetate 667mg Tab ORAL SCH ×3 (08:41→17:34)
[2018-05-11] MEDS: Docusate 100mg cap ORAL SCH ×2 (08:41→17:34)
[2018-05-11] MEDS: Nephrovite tab (Rena-Vite) ORAL SCH (08:42)
[2018-05-11] MEDS: Aspirin EC 81mg tab ORAL SCH (08:42)
[2018-05-11] MEDS: Sertraline 50mg tab ORAL SCH (08:42)
[2018-05-11] MEDS: Heparin 5000 units/ml inj SUBQ SCH ×2 (08:44→21:44)
[2018-05-11] MEDS: Levofloxacin 250mg/D5W 50ml IVPB SCH (10:16)
[2018-05-11 12:00] VITALS: BP 123/67
--- NOTE | 2018-05-11 15:27 | NUR ---
RD ASSESSMENT & RECOMMENDATIONS SEE CARE ACTIVITY FOR COMPLETE ASSESSMENT DAILY ESTIMATED NEEDS: Needs based on ESRD, HD/ 61.7kg abw 25-30 kcals/kg 4388-7553 total kcals 1.2-1.8 g protein/kg 74-111 g total protein 20-22 mL/kg 5653-4458 total fluid mLs NUTRITION DIAGNOSIS: Increased kcal/prot needs R/T renal dysfunction as evidenced by ESRD dx, on HD. CURRENT DIET:RENAL, CCHO MED, soft easy chew PO DIET RECOMMENDATIONS: Maintain RENAL, CCHO MED/ texture as tolerated ADDITIONAL RECOMMENDATIONS: * Calibrated bedscale wt, obtain dry wt post HD * A1C for eval of glycemic control- h/o DM * Check phos level- ESRD dx
[2018-05-11 16:00] VITALS: BP 126/65
--- NOTE | 2018-05-11 17:14 | NUR ---
NURSE NOTES: patient in on o2 via NC 2l/min since admission. no order of Oxygen. notified and received call. order noted and carried out.
--- NOTE | 2018-05-11 17:36 | Nephrology Progress Note ---
Assessment/Plan Plan COPD Exacerbation - oral Steroids, ABX, Pulmonary following. Severe CHF - Increasing UF on HD. Cardiology consulted. Check Echo. HD tomorrow UF more, then DC to SNF Subjective Subjective Still SOB but improving!! Objective Objective Last 24 Hour Vital Signs Date Time Temp Pulse Resp B/P (MAP) Pulse Ox O2 Delivery O2 Flow Rate FiO2 05/11/18 16:00 97.9 75 18 126/65 (85) 98 05/11/18 14:45 82 18 99 Nasal Cannula 2.0 28 05/11/18 14:33 79 16 98 Nasal Cannula 2.0 28 05/11/18 12:00 98.7 73 18 123/67 (85) 99 05/11/18 11:40 87 18 99 Nasal Cannula 2.0 28 05/11/18 11:30 88 17 99 Nasal Cannula 2.0 28 05/11/18 09:00 Nasal Cannula 2.0 05/11/18 08:41 88 123/81 05/11/18 08:41 88 123/81 05/11/18 08:00 97.7 88 18 123/81 (95) 96 05/11/18 07:40 95 22 99 Nasal Cannula 2.0 28 05/11/18 07:30 Nasal Cannula 2.0 28 05/11/18 07:30 99 Nasal Cannula 2.0 28 05/11/18 07:30 97 21 99 Nasal Cannula 2.0 28 05/11/18 04:00 98.9 85 20 131/82 (98) 100 05/11/18 03:49 79 20 99 Nasal Cannula 2.0 28 05/11/18 03:40 78 20 99 Nasal Cannula 2.0 28 05/11/18 00:00 98.0 81 18 113/72 (86) 99 05/10/18 23:46 88 20 99 Nasal Cannula 2.0 28 05/10/18 23:34 83 20 99 Nasal Cannula 2.0 28 05/10/18 21:00 Nasal Cannula 2.0 05/10/18 20:29 91 110/78 05/10/18 20:21 91 20 99 Nasal Cannula 2.0 28 05/10/18 20:09 Nasal Cannula 2.0 28 05/10/18 20:09 99 20 98 Nasal Cannula 2.0 28 05/10/18 20:08 99 Nasal Cannula 2.0 28 05/10/18 20:00 97.7 86 18 110/78 (89) 98 Intake and Output 05/10/18 05/11/18 19:00 07:00 Intake Total 860 ml 555 ml Balance 860 ml 555 ml Intake Oral 860 ml 500 ml IV Total 55 ml # Voids 2 1 Laboratory Tests 05/10/18 17:48: White Blood Count 8.9, Red Blood Count 4.06L, Hemoglobin 12.2, Hematocrit 37.6, Mean Corpuscular Volume 92, Mean Corpuscular Hemoglobin 29.9, Mean Corpuscular Hemoglobin Concent 32.4, Red Cell Distribution Width 15.6H, Platelet Count 184, Mean Platelet Volume 5.7L, Neutrophils (%) (Auto) 73.1, Lymphocytes (%) (Auto) 21.7, Monocytes (%) (Auto) 4.4, Eosinophils (%) (Auto) 0.0, Basophils (%) (Auto ) 0.8, Sodium Level 131L, Potassium Level 4.6, Chloride Level 94L, Carbon Dioxide Level 23, Anion Gap 14, Blood Urea Nitrogen 47H, Creatinine 6.3H, Estimat Glomerular Filtration Rate 8.0, Glucose Level 167H, Calcium Level 9.7 Height (Feet): 5 Height (Inches): 3.00 Weight (Pounds): 179 Objective Blind. CV RR Lungs B wheezes!! Abd SNT BS + E No CCE Madison Sifuentes MD May 11, 2018 17:36
[2018-05-11] MEDS ORDERED: HEPARIN SO5000 UNIT2 SUBQ (17:41)
--- NOTE | 2018-05-11 18:01 | NUR ---
NURSE NOTES: scheduled HD on 05/12/2018 with [facility]. spoke with Ninfa.
--- NOTE | 2018-05-11 19:15 | NUR ---
Pt received supine in bed, NC 2 L on, Bed locked in lowest position and side rails x2. Pt has no complaints at this time.
--- NOTE | 2018-05-11 19:15 | NUR ---
HAND-OFF: Report given to GEORGINA Foreman.
[2018-05-11 20:00] VITALS: BP 129/63
[2018-05-11] MEDS: Atorvastatin 20mg tab ORAL SCH (21:48)
[2018-05-12] VITALS: BP 145/73
[2018-05-12] MEDS: Zolpidem 5mg tab ORAL PRN (00:27)
[2018-05-12] MEDS: Zosyn 2.25 gm in D5W 55ml IV SCH ×3 (02:26→18:02)
[2018-05-12] MEDS: Ipratropium 0.02% Inh Soln 2.5ml UD HHN SCH ×6 (03:00→23:46)
--- NOTE | 2018-05-12 03:45 | Progress Note ---
DATE: 05/11/2018 CARDIOLOGY PROGRESS NOTE SUBJECTIVE: The patient is somewhat less short of breath today, but still not at baseline. OBJECTIVE: VITAL SIGNS: Blood pressure 126/65, heart rate 65, respiratory rate 18, and oxygen saturation on two liters 99%. NECK: Jugular venous pressure is slightly elevated. LUNGS: Clear breath sounds. CARDIAC: Regular rhythm and rate. Normal S1, S2. A 1/6 systolic murmur at apex. ABDOMEN: Soft. EXTREMITIES: No edema. DIAGNOSTIC DATA: Echocardiogram yesterday revealed mild aortic regurgitation, diastolic dysfunction with ejection fraction of 35 to 40%. IMPRESSION: 1. Acute on chronic systolic and diastolic congestive heart failure. 2. Aortic insufficiency. 3. Ischemic heart disease. PLAN: 1. Maximize anti-failure therapy. 2. Add [place] inhibitor. 3. Continue hemodialysis with ultrafiltration. 4. Myocardial perfusion scan to assess for reversible ischemia. Ashutosh Alfonso M.D. DR: HANSEL JOB#: [id number] CC:
[2018-05-12 04:00] VITALS: BP 125/68
[2018-05-12] MEDS: NovoLOG Insulin Flexpen SUBQ SCH ×4 (05:55→20:27)
[2018-05-12] MEDS ORDERED: Heparin 1000 units/ml 1ml Vial INJ PRN (06:00)
[2018-05-12] MEDS ORDERED: Heparin Sod 1000 units/ml 10ml IV PRN (06:00)
--- NOTE | 2018-05-12 07:22 | NUR ---
HAND-OFF: Report given to GEORGINA Dorado.
[2018-05-12 07:49] LABS: ANION GAP 16 mmol/L (5-15); BLOOD UREA NITROGEN 103 mg/dL (7-18); CALCIUM 8.4 MG/DL (8.5-10.1); CARBON DIOXIDE 24 MMOL/L (21-32); CHLORIDE 93 MMOL/L (98-107); CREATININE 9.1 MG/DL (0.55-1.30); POTASSIUM 4.7 MMOL/L (3.5-5.1); SODIUM 133 MMOL/L (136-145)
[2018-05-12 08:00] VITALS: BP 127/68
[2018-05-12 08:07] LABS: BASOPHILS % (AUTO) 0.9 % (0.0-2.0); EOSINOPHILS % (AUTO) 0.9 % (0.0-3.0); HEMATOCRIT 36.3 % (37.0-47.0); LYMPHOCYTES % (AUTO) 40.6 % (20.0-45.0); MEAN CORPUSCULAR VOLUME 93 FL (80-99); MONOCYTES % (AUTO) 10.5 % (1.0-10.0); NEUTROPHILS % (AUTO) 47.1 % (45.0-75.0); PLATELET COUNT 193 K/UL (150-450); RED BLOOD COUNT 3.92 M/UL (4.20-5.40); WHITE BLOOD COUNT 8.5 K/UL (4.8-10.8)
[2018-05-12 08:19] LABS: CHOLESTEROL 153 MG/DL (< 200); HDL CHOLESTEROL 64 MG/DL (40-60); TRIGLYCERIDES 201 MG/DL (30-150)
[2018-05-12] MEDS ORDERED: Lexiscan 0.4mg/5ml syringe IV PRN (09:00)
[2018-05-12] MEDS: Milk of Magnesia 30ml Ud ORAL SCH (09:37)
[2018-05-12] MEDS: Nephrovite tab (Rena-Vite) ORAL SCH (09:37)
[2018-05-12] MEDS: Docusate 100mg cap ORAL SCH ×2 (09:37→18:02)
[2018-05-12] MEDS: Aspirin EC 81mg tab ORAL SCH (09:37)
[2018-05-12] MEDS: Metoprolol 25mg tab ORAL SCH ×2 (09:37→20:37)
[2018-05-12] MEDS: Calcium Acetate 667mg Tab ORAL SCH ×3 (09:38→18:02)
[2018-05-12] MEDS: Lisinopril 20mg tab ORAL SCH (09:38)
[2018-05-12] MEDS: Sertraline 50mg tab ORAL SCH (09:38)
[2018-05-12] MEDS: Heparin 5000 units/ml inj SUBQ SCH ×2 (09:38→20:43)
--- NOTE | 2018-05-12 10:16 | NUR ---
NURSE NOTES: Received pt with stable condition. pt in bed with no sob nor in any form of distress noted. pt went for NM. kept NPO. will continue to monitor
[2018-05-12 12:00] VITALS: BP 117/53
[2018-05-12] MEDS: HYDROcodone/Acetamin 7.5/325 tab ORAL PRN ×2 (14:21→20:50)
--- NOTE | 2018-05-12 15:38 | Nephrology Progress Note ---
Assessment/Plan Plan COPD Exacerbation - oral Steroids, ABX, Pulmonary following. Severe CHF - Increasing UF on HD. Stress test done. Results pending. DC to SNF. Subjective Subjective Still SOB but improving!! On HD. Had cardiac stress test. Objective Objective Last 24 Hour Vital Signs Date Time Temp Pulse Resp B/P (MAP) Pulse Ox O2 Delivery O2 Flow Rate FiO2 05/12/18 15:25 78 22 99 Nasal Cannula 2.0 28 05/12/18 15:20 79 20 96 Room Air 21 05/12/18 12:00 97.7 74 18 117/53 (74) 98 05/12/18 10:43 76 20 100 Room Air 21 05/12/18 10:36 75 20 98 Room Air 21 05/12/18 09:00 Nasal Cannula 2.0 05/12/18 08:00 98.1 78 20 127/68 (87) 98 05/12/18 06:55 79 20 99 Nasal Cannula 2.0 28 05/12/18 06:50 78 20 98 Nasal Cannula 2.0 28 05/12/18 06:50 97 Nasal Cannula 2.0 28 05/12/18 06:50 Nasal Cannula 2.0 28 05/12/18 04:00 98.6 79 20 125/68 (87) 98 05/12/18 03:31 Nasal Cannula 2.0 28 05/12/18 03:30 Nasal Cannula 2.0 28 05/12/18 00:00 98.0 66 20 145/73 (97) 100 05/11/18 22:58 79 20 100 Nasal Cannula 2.0 28 05/11/18 22:50 72 18 98 Nasal Cannula 2.0 28 05/11/18 21:48 78 129/63 05/11/18 21:00 Nasal Cannula 2.0 05/11/18 20:00 97.3 78 20 129/63 (85) 99 05/11/18 19:57 80 20 100 Nasal Cannula 2.0 28 05/11/18 19:54 Nasal Cannula 2.0 28 05/11/18 19:54 100 Nasal Cannula 2.0 28 05/11/18 19:44 74 18 99 Nasal Cannula 2.0 28 05/11/18 16:00 97.9 75 18 126/65 (85) 98 Intake and Output 05/11/18 05/12/18 19:00 07:00 Intake Total 655 ml 295 ml Output Total 400 ml Balance 655 ml -105 ml Intake Oral 240 ml IV Total 105 ml 55 ml Other 550 ml Output Urine Total 400 ml # Voids 3 # Bowel Movements 2 Laboratory Tests 05/12/18 05:31: White Blood Count 8.5, Red Blood Count 3.92L, Hemoglobin 12.0, Hematocrit 36.3L , Mean Corpuscular Volume 93, Mean Corpuscular Hemoglobin 30.5, Mean Corpuscular Hemoglobin Concent 33.0, Red Cell Distribution Width 16.0H, Platelet Count 193, Mean Platelet Volume 6.2L, Neutrophils (%) (Auto) 47.1, Lymphocytes (%) (Auto) 40.6, Monocytes (%) (Auto) 10.5H, Eosinophils (%) (Auto) 0.9, Basophils (%) (Auto) 0.9, Sodium Level 133L, Potassium Level 4.7, Chloride Level 93L, Carbon Dioxide Level 24, Anion Gap 16H, Blood Urea Nitrogen 103H, Creatinine 9.1H, Estimat Glomerular Filtration Rate 5.2, Glucose Level 75, Calcium Level 8.4L, Troponin I 0.000, Triglycerides Level 201H, Cholesterol Level 153, LDL Cholesterol 55, HDL Cholesterol 64H, Cholesterol/HDL Ratio 2.4L Height (Feet): 5 Height (Inches): 3.00 Weight (Pounds): 179 Objective Blind. CV RR Lungs B wheezes!! Abd SNT BS + E No CCE Madison Sifuentes MD May 12, 2018 15:38
[2018-05-12 16:00] VITALS: BP 119/76
[2018-05-12] MEDS ORDERED: Heparin 5000 units/ml inj INJ PRN (16:03)
--- NOTE | 2018-05-12 16:22 | Diagnostic Imaging Report ---
Indications: Chest pain, hypertension, congestive heart failure Technique: Single day single isotope protocol utilized. Initially, resting images obtained using IV administration 10.5 millicuries 99M technetium Myoview. Subsequently, patient underwent Dobutamine stress testing. See cardiology report for details. During dobutamine infusion, IV administration 31.1 mCi 99 M technetium Myoview. SPECT and planar images obtained. SPECT images gated to 8 phases of the cardiac cycle were also obtained, and reformatted into cine images for evaluation of ejection fraction. Comparison: none Findings: Per cardiology report, patient experienced chest pain which increased during infusion. Per cardiology report, resting EKG demonstrates normal sinus rhythm. No significant ST-T wave changes reported during infusion. Patient did experience PVCs. Imaging demonstrates equivocal subtle decreased perfusion in the anteroseptal wall near the apex which is less evident on the resting images. No fixed perfusion defects are demonstrated. There is mild left ventricular dilatation. Calculated post stress ejection fraction 41%. There is generalized hypokinesis and more focal septal hypokinesis demonstrated on the gated images Impression: Ischemic clinical response to pharmacologic stress, per cardiology report Nonischemic electrocardiographic response to pharmacologic stress, per cardiology report Very questionable small focal area of reversible decreased perfusion, consistent with ischemia if real, in the anteroseptal wall near the apex Calculated post stress ejection fraction 41%. Note mild global as well as more focal septal hypokinesis and mild left ventricular chamber dilatation
--- NOTE | 2018-05-12 16:56 | NUR ---
*-* DISCHARGE PLANNED *-* PATIENT HAS BEEN REFERRED BACK TO: [facility] P:[phone] F:[phone]
--- NOTE | 2018-05-12 16:56 | NUR ---
*-* DISCHARGE PLANNED *-* PATIENT IS DISCHARGED TO: [facility] [place] ROOM# [id number]-A SKILLED T:[phone] FOR NURSE TO NURSE REPORT [facility] HAS BEEN ARRANGED ON A WILL CALL S/W [facility] [id number] PLEASE CALL TO ACTIVATE
--- NOTE | 2018-05-12 19:33 | NUR ---
HAND-OFF: Report given to GEORGINA Barnes.
[2018-05-12 20:00] VITALS: BP 127/67
--- NOTE | 2018-05-12 20:00 | NUR ---
NURSE NOTES: Followed up paged Dr. Sifuentes regarding discharge order pending. Reported Stress test result to Dr. Sifuentes who ordered to hold discharge for now and refer to core inserter. Will continue plan of care.
[2018-05-12] MEDS: Atorvastatin 20mg tab ORAL SCH (20:37)
--- NOTE | 2018-05-12 21:00 | Pulmonology Progress Note ---
Assessment/Plan Assessment/Plan Pulmonary Progress Note Assessment/Plan IMPRESSION: 1. Chronic obstructive pulmonary disease with acute exacerbation. 2. End-stage renal disease 3. Hypertension. 4. Blindness. 5. Diabetes. PLAN respiratory care oxygen HD keep negative follow up for change Prednisone 30 mg daily impression, plan, and exam edited and reviewed in detail care discussed with RN Subjective Allergies: Coded Allergies: No Known Allergies (Unverified , 12/01/17) Subjective care noted follow up reviewed no distress at present Objective Vital Signs Noted Objective GENERAL: This is an ill-appearing female, appears older than her stated age. HEENT: Fairly negative. Extraocular movements are grossly intact. Oropharynx is moist. NECK: Jugular venous distention minimal. LUNGS: With reduced breath sounds. No expiratory rhonchi or wheezes. CARDIAC: S1 and S2. Regular rate and rhythm without murmurs, rubs, or gallops. ABDOMEN: Soft, nontender, and nondistended. EXTREMITIES: No cyanosis or clubbing. Mild edema. NEUROLOGICAL: Weak, nonfocal, and alert. Microbiology Date/Time Source Procedure Growth Status 05/08/18 23:45 Blood Blood Culture - Preliminary NO GROWTH AFTER 24 HOURS Resulted 05/08/18 23:30 Blood Blood Culture - Preliminary NO GROWTH AFTER 24 HOURS Resulted Laboratory Tests 05/10/18 17:48: White Blood Count 8.9, Red Blood Count 4.06L, Hemoglobin 12.2, Hematocrit 37.6, Mean Corpuscular Volume 92, Mean Corpuscular Hemoglobin 29.9, Mean Corpuscular Hemoglobin Concent 32.4, Red Cell Distribution Width 15.6H, Platelet Count 184, Mean Platelet Volume 5.7L, Neutrophils (%) (Auto) 73.1, Lymphocytes (%) (Auto) 21.7, Monocytes (%) (Auto) 4.4, Eosinophils (%) (Auto) 0.0, Basophils (%) (Auto ) 0.8, Sodium Level 131L, Potassium Level 4.6, Chloride Level 94L, Carbon Dioxide Level 23, Anion Gap 14, Blood Urea Nitrogen 47H, Creatinine 6.3H, Estimat Glomerular Filtration Rate 8.0, Glucose Level 167H, Calcium Level 9.7 Current Medications Medications (Trade) Dose Ordered Sig/Parmjit Route PRN Reason Start Time Stop Time Status Last Admin Dose Admin Acetaminophen (Tylenol) 650 mg Q6H PRN ORAL Mild Pain (Pain Scale 1-3) 05/09/18 07:15 06/08/18 07:14 Acetaminophen/ Hydrocodone Bitart ([place] 7.5/325) 1 tab Q4H PRN ORAL Moderate Pain (Pain Scale 4-6) 05/09/18 07:15 05/16/18 07:14 05/11/18 03:03 Amlodipine Besylate (Norvasc) 5 mg DAILY ORAL 05/09/18 09:00 06/08/18 08:59 05/10/18 08:41 Aspirin (Ecotrin) 81 mg DAILY ORAL 05/09/18 09:00 06/08/18 08:59 05/10/18 08:41 Atorvastatin Calcium (Lipitor) 20 mg BEDTIME ORAL 05/09/18 21:00 06/08/18 20:59 05/10/18 20:29 Bisacodyl (Dulcolax) 10 mg DAILYPRN PRN RECTAL Constipation 05/09/18 07:15 06/08/18 07:14 Calcium Acetate (Phoslo) 667 mg THREE TIMES A DAY ORAL 05/09/18 18:00 06/08/18 17:59 05/10/18 17:00 Dextrose (Dextrose 50%) 25 ml Q30M PRN IV Hypoglycemia 05/09/18 07:15 06/08/18 07:14 Dextrose (Dextrose 50%) 50 ml Q30M PRN IV Hypoglycemia 05/09/18 07:15 06/08/18 07:14 Diphenhydramine HCl (Benadryl) 25 mg Q6H PRN ORAL Itching 05/09/18 07:15 06/08/18 07:14 Docusate Sodium (Colace) 100 mg TWICE A DAY ORAL 05/09/18 09:00 06/08/18 08:59 05/10/18 17:00 Famotidine (Pepcid) 20 mg DAILY ORAL 05/09/18 09:00 06/08/18 08:59 05/10/18 08:41 Glucagon (Glucagon) 1 mg DAILYPRN PRN IM blood glucose <60 05/09/18 08:15 06/08/18 08:14 Heparin Sodium (Porcine) (Heparin 5000 units/ml) 5,000 units EVERY 12 HOURS SUBQ 05/09/18 09:00 06/08/18 08:59 05/10/18 20:30 Insulin Aspart (NovoLOG) BEFORE MEALS AND HS SUBQ 05/09/18 11:30 06/08/18 11:29 05/10/18 20:34 Ipratropium [place] (Atrovent) 500 mcg Q4HRT HHN 05/10/18 15:00 05/15/18 14:59 05/11/18 07:30 Levofloxacin 50 ml @ 50 mls/hr Q48H IVPB 05/11/18 10:00 05/18/18 09:59 Loratadine (Claritin 10mg) 10 mg DAILYPRN PRN ORAL runny nose, nasal irritation, 05/09/18 07:15 06/08/18 07:14 05/10/18 14:56 Magnesium Hydroxide (Mom) 15 ml DAILY ORAL 05/09/18 09:00 06/08/18 08:59 05/10/18 08:42 Methylprednisolone Sodium Succinate (Solu-MEDROL) 40 mg EVERY 12 HOURS IVP 05/09/18 21:00 06/08/18 20:59 05/10/18 20:29 Metoprolol Tartrate (Lopressor) 25 mg EVERY 12 HOURS ORAL 05/09/18 09:00 06/08/18 08:59 05/10/18 20:29 Piperacillin Sod/ Tazobactam Sod 2.25 gm/Dextrose 55 ml @ 110 mls/hr Q8H IV 05/09/18 11:00 05/16/18 10:59 05/11/18 03:00 Sertraline HCl (Zoloft) 50 mg DAILY ORAL 05/09/18 09:00 06/08/18 08:59 05/10/18 08:41 Simethicone (Mylicon) 80 mg Q8H PRN ORAL GAS PAIN 05/09/18 07:15 06/08/18 07:14 Vitamin B Complex/ Vit C/Folic Acid (Nephrovite) 1 tab DAILY ORAL 05/09/18 09:00 06/08/18 08:59 05/10/18 08:41 Zolpidem Tartrate (Ambien) 5 mg HSPRN PRN ORAL Insomnia 05/09/18 07:15 05/16/18 07:14 05/09/18 22:12 Subjective ROS Limited/Unobtainable: No Allergies: Coded Allergies: No Known Allergies (Unverified , 12/01/17) Objective Last 24 Hour Vital Signs Date Time Temp Pulse Resp B/P (MAP) Pulse Ox O2 Delivery O2 Flow Rate FiO2 05/12/18 20:37 83 127/67 05/12/18 20:00 97.7 83 20 127/67 (87) 100 05/12/18 19:44 Nasal Cannula 2.0 28 05/12/18 19:44 96 Nasal Cannula 2.0 28 05/12/18 19:41 85 18 96 Nasal Cannula 2.0 28 05/12/18 16:00 98.5 86 19 119/76 (90) 98 05/12/18 15:25 78 22 99 Nasal Cannula 2.0 28 05/12/18 15:20 79 20 96 Room Air 21 05/12/18 14:51 97.7 05/12/18 12:00 97.7 74 18 117/53 (74) 98 05/12/18 10:43 76 20 100 Room Air 21 05/12/18 10:36 75 20 98 Room Air 21 05/12/18 09:00 Nasal Cannula 2.0 05/12/18 08:00 98.1 78 20 127/68 (87) 98 05/12/18 06:55 79 20 99 Nasal Cannula 2.0 28 05/12/18 06:50 78 20 98 Nasal Cannula 2.0 28 05/12/18 06:50 97 Nasal Cannula 2.0 28 05/12/18 06:50 Nasal Cannula 2.0 28 05/12/18 04:00 98.6 79 20 125/68 (87) 98 05/12/18 03:31 Nasal Cannula 2.0 28 05/12/18 03:30 Nasal Cannula 2.0 28 05/12/18 00:00 98.0 66 20 145/73 (97) 100 05/11/18 22:58 79 20 100 Nasal Cannula 2.0 28 05/11/18 22:50 72 18 98 Nasal Cannula 2.0 28 05/11/18 21:48 78 129/63 05/11/18 21:00 Nasal Cannula 2.0 Intake and Output 05/11/18 05/12/18 19:00 07:00 Intake Total 655 ml 295 ml Output Total 400 ml Balance 655 ml -105 ml Intake Oral 240 ml IV Total 105 ml 55 ml Other 550 ml Output Urine Total 400 ml # Voids 3 # Bowel Movements 2 Laboratory Tests 05/12/18 05:31: White Blood Count 8.5, Red Blood Count 3.92L, Hemoglobin 12.0, Hematocrit 36.3L , Mean Corpuscular Volume 93, Mean Corpuscular Hemoglobin 30.5, Mean Corpuscular Hemoglobin Concent 33.0, Red Cell Distribution Width 16.0H, Platelet Count 193, Mean Platelet Volume 6.2L, Neutrophils (%) (Auto) 47.1, Lymphocytes (%) (Auto) 40.6, Monocytes (%) (Auto) 10.5H, Eosinophils (%) (Auto) 0.9, Basophils (%) (Auto) 0.9, Sodium Level 133L, Potassium Level 4.7, Chloride Level 93L, Carbon Dioxide Level 24, Anion Gap 16H, Blood Urea Nitrogen 103H, Creatinine 9.1H, Estimat Glomerular Filtration Rate 5.2, Glucose Level 75, Calcium Level 8.4L, Troponin I 0.000, Triglycerides Level 201H, Cholesterol Level 153, LDL Cholesterol 55, HDL Cholesterol 64H, Cholesterol/HDL Ratio 2.4L Current Medications Medications (Trade) Dose Ordered Sig/Parmjit Route PRN Reason Start Time Stop Time Status Last Admin Dose Admin Acetaminophen (Tylenol) 650 mg Q6H PRN ORAL Mild Pain (Pain Scale 1-3) 05/09/18 07:15 06/08/18 07:14 Acetaminophen/ Hydrocodone Bitart ([place] 7.5/325) 1 tab Q4H PRN ORAL Moderate Pain (Pain Scale 4-6) 05/09/18 07:15 05/16/18 07:14 05/12/18 20:50 Amlodipine Besylate (Norvasc) 5 mg DAILY ORAL 05/09/18 09:00 06/08/18 08:59 05/11/18 08:41 Aspirin (Ecotrin) 81 mg DAILY ORAL 05/09/18 09:00 06/08/18 08:59 05/11/18 08:42 Atorvastatin Calcium (Lipitor) 20 mg BEDTIME ORAL 05/11/18 21:00 06/08/18 20:59 05/12/18 20:37 Bisacodyl (Dulcolax) 10 mg DAILYPRN PRN RECTAL Constipation 05/09/18 07:15 06/08/18 07:14 05/11/18 21:49 Calcium Acetate (Phoslo) 667 mg THREE TIMES A DAY ORAL 05/09/18 18:00 06/08/18 17:59 05/12/18 18:02 Dextrose (Dextrose 50%) 25 ml Q30M PRN IV Hypoglycemia 05/09/18 07:15 06/08/18 07:14 Dextrose (Dextrose 50%) 50 ml Q30M PRN IV Hypoglycemia 05/09/18 07:15 06/08/18 07:14 Diphenhydramine HCl (Benadryl) 25 mg Q6H PRN ORAL Itching 05/09/18 07:15 06/08/18 07:14 05/11/18 16:45 Docusate Sodium (Colace) 100 mg TWICE A DAY ORAL 05/09/18 09:00 06/08/18 08:59 05/12/18 18:02 Famotidine (Pepcid) 20 mg DAILY ORAL 05/09/18 09:00 06/08/18 08:59 05/11/18 08:41 Glucagon (Glucagon) 1 mg DAILYPRN PRN IM blood glucose <60 05/09/18 08:15 06/08/18 08:14 Heparin Sodium (Porcine) (Heparin 5000 units/ml) 5,000 units EVERY 12 HOURS SUBQ 05/09/18 09:00 06/08/18 08:59 05/12/18 20:43 Heparin Sodium (Porcine) (Heparin 5000 units/ml) 10,000 units ONCE PRN INJ HD 05/12/18 16:03 05/12/18 23:59 05/12/18 16:06 Heparin Sodium (Porcine) (Heparin) 1,000 unit POSTHD PRN INJ POST HD 05/12/18 06:00 05/12/18 23:59 Insulin Aspart (NovoLOG) BEFORE MEALS AND HS SUBQ 05/09/18 11:30 06/08/18 11:29 05/12/18 16:15 Ipratropium [place] (Atrovent) 500 mcg Q4HRT HHN 05/10/18 15:00 05/15/18 14:59 05/12/18 19:41 Levofloxacin 50 ml @ 50 mls/hr Q48H IVPB 05/11/18 10:00 05/18/18 09:59 05/11/18 10:16 Lisinopril (Prinivil) 20 mg DAILY ORAL 05/12/18 09:00 06/11/18 08:59 Loratadine (Claritin 10mg) 10 mg DAILYPRN PRN ORAL runny nose, nasal irritation, 05/09/18 07:15 06/08/18 07:14 05/12/18 18:09 Magnesium Hydroxide (Mom) 15 ml DAILY ORAL 05/09/18 09:00 06/08/18 08:59 05/11/18 08:41 Metoprolol Tartrate (Lopressor) 25 mg EVERY 12 HOURS ORAL 05/09/18 09:00 06/08/18 08:59 05/12/18 20:37 Piperacillin Sod/ Tazobactam Sod 2.25 gm/Dextrose 55 ml @ 110 mls/hr Q8H IV 05/12/18 18:00 05/19/18 17:59 05/12/18 18:02 Prednisone (predniSONE) 40 mg DAILY ORAL 05/11/18 09:00 06/10/18 08:59 05/11/18 08:42 Regadenoson (Lexiscan) 0.4 mg ONCE PRN IV stress test 05/12/18 09:00 05/14/18 08:59 Sertraline HCl (Zoloft) 50 mg DAILY ORAL 05/09/18 09:00 06/08/18 08:59 05/11/18 08:42 Simethicone (Mylicon) 80 mg Q8H PRN ORAL GAS PAIN 05/09/18 07:15 06/08/18 07:14 Sodium Chloride 1,000 ml @ 500 mls/hr Q2H PRN IVLG sbp<90 during hd 05/12/18 06:00 05/12/18 23:59 Vitamin B Complex/ Vit C/Folic Acid (Nephrovite) 1 tab DAILY ORAL 05/09/18 09:00 06/08/18 08:59 05/11/18 08:42 Zolpidem Tartrate (Ambien) 5 mg HSPRN PRN ORAL Insomnia 05/09/18 07:15 05/16/18 07:14 05/12/18 00:27 Ashutosh Cooper MD May 12, 2018 21:00
--- NOTE | 2018-05-12 23:15 | Progress Note ---
DATE: 05/12/2018 CARDIOLOGY PROGRESS NOTE SUBJECTIVE: The patient is still short of breath, slightly better, however, she is on oral steroids with taper. OBJECTIVE: VITAL SIGNS: Blood pressure 117/53, pulse 74, respiratory rate 18, and afebrile. NECK: Supple. Jugular venous pressure elevated. LUNGS: With diminished breath sounds. No wheezing. CARDIAC: Regular rhythm and rate. Normal S1, S2 with a fourth heart sound. ABDOMEN: Soft. EXTREMITIES: With trace edema. LABORATORY AND DIAGNOSTIC DATA: Myocardial perfusion scan performed. Study is notable for ejection fraction of 40%, some wall motion abnormalities. Chest pain with infusion of Lexiscan and evidence of reversible apical septal ischemia. IMPRESSION: 1. Ischemic cardiomyopathy with reversible ischemia and symptomatic with chest pain. 2. Acute on chronic diastolic congestive heart failure, refractory to ultrafiltration, likely due to component of ischemia. 3. Hypertensive heart disease. 4. Chronic obstructive pulmonary disease. PLAN: 1. Antiplatelet, anti-lipid, and antianginal therapy. 2. Continue with hemodialysis and ultrafiltration. 3. We will arrange outpatient coronary angiography and cardiac catheterization and discharge to alf facility once euvolemic. Ashutosh Alfonso M.D. DR: OLGA JOB#: [id number] CC:
--- NOTE | 2018-05-12 23:15 | Consultation ---
DATE OF CONSULTATION: 05/10/2018 CARDIOLOGY CONSULT CONSULTING PHYSICIAN: Ashutosh Alfonso M.D. REQUESTING PHYSICIAN: Madison Sifuentes M.D. REASON FOR CONSULTATION: Refractory heart failure. HISTORY OF PRESENT ILLNESS: This is a 68-year-old female with end-stage renal disease, on hemodialysis. She has been increasingly short of breath despite regular hemodialysis sessions. She has been on multiple breathing treatments without improvement. She was found to have congestive heart failure and admitted here 2 days ago for treatment. Despite increasing ultrafiltration, she continues to have heart failure and shortness symptoms, namely shortness of breath. She has not had any chest pain. PAST MEDICAL HISTORY: Hypertensive heart disease, congestive heart failure, end-stage renal disease, chronic obstructive pulmonary disease, type 2 diabetes mellitus, hepatic cirrhosis, blindness due to retinopathy, diabetic neuropathy, anemia of chronic kidney disease, and hyperlipidemia. ALLERGIES: None. FAMILY HISTORY: Noncontributory. SOCIAL HISTORY: Negative for current smoking alcohol or substance abuse. MEDICATIONS: Reviewed and reconciled. REVIEW OF SYSTEMS: A 10-point review of systems performed. All systems negative other than noted above. PHYSICAL EXAMINATION: GENERAL: A well-appearing female, in mild respiratory distress. VITAL SIGNS: Blood pressure 122/61, pulse 77, respiratory rate 20, afebrile, and oxygen saturation 99% on 2 liters. HEENT: Conjunctivae pink. Oropharynx clear. NECK: Supple. Jugular venous pressure elevated. LUNGS: Few rales. CARDIAC: Regular rhythm and rate. Normal S1 and S2. A 1/6 systolic murmur at apex. ABDOMEN: Soft and nontender. EXTREMITIES: With trace edema. LABORATORY DATA: White count 8.9 and hemoglobin 12.2. Sodium 131, potassium 4.6, bicarbonate 23, BUN 47, and creatinine 6.3. Troponin 0.052. EKG, sinus rhythm with nonspecific ST change ____ cardiac monitoring. IMPRESSION: 1. Acute on chronic diastolic congestive heart failure, refractory to fluid removal. 2. Hypertensive heart disease with controlled blood pressure. 3. Insulin-requiring diabetes mellitus with multiple complications. PLAN: 1. Continue fluid removal with ultrafiltration. 2. Maximize anti-failure, antihypertensive regimen. Antiplatelet therapy for prophylaxis against ischemic event. 3. Echocardiogram to evaluate left ventricular ejection fraction. 4. Consideration for a myocardial perfusion scan to evaluate for silent ischemia. Ashutosh Bayron Alfonso DR: NANNETTE JOB#: [id number] CC:
[2018-05-13] VITALS (7 sets, daily range): BP systolic 100–130; BP diastolic 47–70
[2018-05-13] MEDS: Zolpidem 5mg tab ORAL PRN (01:58)
[2018-05-13] MEDS: Zosyn 2.25 gm in D5W 55ml IV SCH ×3 (02:00→17:27)
[2018-05-13] MEDS: Ipratropium 0.02% Inh Soln 2.5ml UD HHN SCH ×6 (03:15→23:00)
[2018-05-13] MEDS: HYDROcodone/Acetamin 7.5/325 tab ORAL PRN ×4 (05:13→20:39)
[2018-05-13] MEDS ORDERED: Heparin 5000 units/ml inj INJ PRN (06:00)
[2018-05-13] MEDS: NovoLOG Insulin Flexpen SUBQ SCH ×4 (06:26→20:42)
--- NOTE | 2018-05-13 07:32 | NUR ---
HAND-OFF: Report given to Teresita ERICKSON.
[2018-05-13] MEDS: Milk of Magnesia 30ml Ud ORAL SCH (09:35)
[2018-05-13] MEDS: Nephrovite tab (Rena-Vite) ORAL SCH (09:35)
[2018-05-13] MEDS: Lisinopril 20mg tab ORAL SCH (09:35)
[2018-05-13] MEDS: Metoprolol 25mg tab ORAL SCH ×2 (09:37→20:40)
[2018-05-13] MEDS: Docusate 100mg cap ORAL SCH ×2 (09:38→17:27)
[2018-05-13] MEDS: Calcium Acetate 667mg Tab ORAL SCH ×3 (09:39→17:49)
[2018-05-13] MEDS: Aspirin EC 81mg tab ORAL SCH (09:40)
[2018-05-13] MEDS: Sertraline 50mg tab ORAL SCH (09:40)
[2018-05-13] MEDS: Heparin 5000 units/ml inj SUBQ SCH ×2 (09:43→20:41)
--- NOTE | 2018-05-13 11:38 | Pulmonology Progress Note ---
Assessment/Plan Assessment/Plan IMPRESSION: 1. Chronic obstructive pulmonary disease with acute exacerbation. 2. End-stage renal disease 3. Hypertension. 4. Blindness. 5. Diabetes. PLAN respiratory care oxygen HD keep negative follow up for change PO prednisone and dc planning impression, plan, and exam edited and reviewed in detail care discussed with RN Subjective Allergies: Coded Allergies: No Known Allergies (Unverified , 12/01/17) Subjective care noted follow up reviewed no distress at present Objective Last 24 Hour Vital Signs Date Time Temp Pulse Resp B/P (MAP) Pulse Ox O2 Delivery O2 Flow Rate FiO2 05/13/18 11:22 104 22 98 Nasal Cannula 2.0 28 05/13/18 11:19 104 22 98 Nasal Cannula 2.0 28 05/13/18 10:08 98.2 05/13/18 09:38 102 130/70 05/13/18 09:37 102 130/70 05/13/18 09:35 130/70 05/13/18 08:42 98 20 99 Nasal Cannula 2.0 28 05/13/18 08:26 102 20 98 Nasal Cannula 2.0 28 05/13/18 08:26 98 Nasal Cannula 2.0 28 05/13/18 08:26 Nasal Cannula 2.0 28 05/13/18 08:00 98.2 98 18 130/70 (90) 95 05/13/18 04:00 98.1 76 20 118/52 (74) 98 05/13/18 03:25 83 18 99 Nasal Cannula 2.0 28 05/13/18 03:15 86 18 95 Nasal Cannula 2.0 28 05/13/18 00:00 98.2 72 19 100/47 (64) 100 05/12/18 23:56 85 18 100 Nasal Cannula 2.0 28 05/12/18 23:46 72 18 94 Nasal Cannula 2.0 28 05/12/18 21:00 Nasal Cannula 2.0 05/12/18 20:37 83 127/67 05/12/18 20:00 97.7 83 20 127/67 (87) 100 05/12/18 19:51 86 18 99 Nasal Cannula 2.0 28 05/12/18 19:44 Nasal Cannula 2.0 28 05/12/18 19:44 96 Nasal Cannula 2.0 28 05/12/18 19:41 85 18 96 Nasal Cannula 2.0 28 05/12/18 16:00 98.5 86 19 119/76 (90) 98 05/12/18 15:25 78 22 99 Nasal Cannula 2.0 28 05/12/18 15:20 79 20 96 Room Air 21 05/12/18 12:00 97.7 74 18 117/53 (74) 98 Intake and Output 05/12/18 05/13/18 18:59 06:59 Intake Total 600 ml 500 ml Balance 600 ml 500 ml Intake Oral 600 ml 500 ml # Voids 2 2 Objective GENERAL: This is an ill-appearing female, appears older than her stated age. HEENT: Fairly negative. Extraocular movements are grossly intact. Oropharynx is moist. NECK: Jugular venous distention minimal. LUNGS: With reduced breath sounds. No expiratory rhonchi or wheezes. CARDIAC: S1 and S2. Regular rate and rhythm without murmurs, rubs, or gallops. ABDOMEN: Soft, nontender, and nondistended. EXTREMITIES: No cyanosis or clubbing. Mild edema. NEUROLOGICAL: Weak, nonfocal, and alert. Current Medications Medications (Trade) Dose Ordered Sig/Parmjit Route PRN Reason Start Time Stop Time Status Last Admin Dose Admin Acetaminophen (Tylenol) 650 mg Q6H PRN ORAL Mild Pain (Pain Scale 1-3) 05/09/18 07:15 06/08/18 07:14 Acetaminophen/ Hydrocodone Bitart ([place] 7.5/325) 1 tab Q4H PRN ORAL Moderate Pain (Pain Scale 4-6) 05/09/18 07:15 05/16/18 07:14 05/13/18 09:38 Amlodipine Besylate (Norvasc) 5 mg DAILY ORAL 05/09/18 09:00 06/08/18 08:59 05/13/18 09:38 Aspirin (Ecotrin) 81 mg DAILY ORAL 05/09/18 09:00 06/08/18 08:59 05/13/18 09:40 Atorvastatin Calcium (Lipitor) 20 mg BEDTIME ORAL 05/11/18 21:00 06/08/18 20:59 05/12/18 20:37 Bisacodyl (Dulcolax) 10 mg DAILYPRN PRN RECTAL Constipation 05/09/18 07:15 06/08/18 07:14 05/11/18 21:49 Calcium Acetate (Phoslo) 667 mg THREE TIMES A DAY ORAL 05/09/18 18:00 06/08/18 17:59 05/13/18 09:39 Dextrose (Dextrose 50%) 25 ml Q30M PRN IV Hypoglycemia 05/09/18 07:15 06/08/18 07:14 Dextrose (Dextrose 50%) 50 ml Q30M PRN IV Hypoglycemia 05/09/18 07:15 06/08/18 07:14 Diphenhydramine HCl (Benadryl) 25 mg Q6H PRN ORAL Itching 05/09/18 07:15 06/08/18 07:14 05/11/18 16:45 Docusate Sodium (Colace) 100 mg TWICE A DAY ORAL 05/09/18 09:00 06/08/18 08:59 05/13/18 09:38 Famotidine (Pepcid) 20 mg DAILY ORAL 05/09/18 09:00 06/08/18 08:59 05/13/18 09:37 Glucagon (Glucagon) 1 mg DAILYPRN PRN IM blood glucose <60 05/09/18 08:15 06/08/18 08:14 Heparin Sodium (Porcine) (Heparin 5000 units/ml) 5,000 units EVERY 12 HOURS SUBQ 05/09/18 09:00 06/08/18 08:59 05/13/18 09:43 Insulin Aspart (NovoLOG) BEFORE MEALS AND HS SUBQ 05/09/18 11:30 06/08/18 11:29 05/12/18 16:15 Ipratropium [place] (Atrovent) 500 mcg Q4HRT HHN 05/10/18 15:00 05/15/18 14:59 05/13/18 11:18 Levofloxacin 50 ml @ 50 mls/hr Q48H IVPB 05/11/18 10:00 05/18/18 09:59 05/11/18 10:16 Lisinopril (Prinivil) 20 mg DAILY ORAL 05/12/18 09:00 06/11/18 08:59 05/13/18 09:35 Loratadine (Claritin 10mg) 10 mg DAILYPRN PRN ORAL runny nose, nasal irritation, 05/09/18 07:15 06/08/18 07:14 05/13/18 09:34 Magnesium Hydroxide (Mom) 15 ml DAILY ORAL 05/09/18 09:00 06/08/18 08:59 05/13/18 09:35 Metoprolol Tartrate (Lopressor) 25 mg EVERY 12 HOURS ORAL 05/09/18 09:00 06/08/18 08:59 05/13/18 09:37 Piperacillin Sod/ Tazobactam Sod 2.25 gm/Dextrose 55 ml @ 110 mls/hr Q8H IV 05/12/18 18:00 05/19/18 17:59 05/13/18 11:08 Prednisone (predniSONE) 40 mg DAILY ORAL 05/11/18 09:00 06/10/18 08:59 05/13/18 09:36 Regadenoson (Lexiscan) 0.4 mg ONCE PRN IV stress test 05/12/18 09:00 05/14/18 08:59 Sertraline HCl (Zoloft) 50 mg DAILY ORAL 05/09/18 09:00 06/08/18 08:59 05/13/18 09:40 Simethicone (Mylicon) 80 mg Q8H PRN ORAL GAS PAIN 05/09/18 07:15 06/08/18 07:14 Vitamin B Complex/ Vit C/Folic Acid (Nephrovite) 1 tab DAILY ORAL 05/09/18 09:00 06/08/18 08:59 05/13/18 09:35 Zolpidem Tartrate (Ambien) 5 mg HSPRN PRN ORAL Insomnia 05/09/18 07:15 05/16/18 07:14 05/13/18 01:58 Fabian Centeno MD May 13, 2018 11:38
--- NOTE | 2018-05-13 11:45 | Nephrology Progress Note ---
Assessment/Plan Plan COPD Exacerbation - oral Steroids, ABX, Pulmonary following. Severe CHF - Increasing UF on HD. Stress test done. Results indicate ischemia. DC to SNF. Schedule coronary angio @ [facility]. Subjective Subjective Still SOB but improving!! On HD. Had cardiac stress test. Objective Objective Last 24 Hour Vital Signs Date Time Temp Pulse Resp B/P (MAP) Pulse Ox O2 Delivery O2 Flow Rate FiO2 05/13/18 11:22 104 22 98 Nasal Cannula 2.0 28 05/13/18 11:19 104 22 98 Nasal Cannula 2.0 28 05/13/18 10:08 98.2 05/13/18 09:38 102 130/70 05/13/18 09:37 102 130/70 05/13/18 09:35 130/70 05/13/18 08:42 98 20 99 Nasal Cannula 2.0 28 05/13/18 08:26 102 20 98 Nasal Cannula 2.0 28 05/13/18 08:26 98 Nasal Cannula 2.0 28 05/13/18 08:26 Nasal Cannula 2.0 28 05/13/18 08:00 98.2 98 18 130/70 (90) 95 05/13/18 04:00 98.1 76 20 118/52 (74) 98 05/13/18 03:25 83 18 99 Nasal Cannula 2.0 28 05/13/18 03:15 86 18 95 Nasal Cannula 2.0 28 05/13/18 00:00 98.2 72 19 100/47 (64) 100 05/12/18 23:56 85 18 100 Nasal Cannula 2.0 28 05/12/18 23:46 72 18 94 Nasal Cannula 2.0 28 05/12/18 21:00 Nasal Cannula 2.0 05/12/18 20:37 83 127/67 05/12/18 20:00 97.7 83 20 127/67 (87) 100 05/12/18 19:51 86 18 99 Nasal Cannula 2.0 28 05/12/18 19:44 Nasal Cannula 2.0 28 05/12/18 19:44 96 Nasal Cannula 2.0 28 05/12/18 19:41 85 18 96 Nasal Cannula 2.0 28 05/12/18 16:00 98.5 86 19 119/76 (90) 98 05/12/18 15:25 78 22 99 Nasal Cannula 2.0 28 05/12/18 15:20 79 20 96 Room Air 21 05/12/18 12:00 97.7 74 18 117/53 (74) 98 Intake and Output 05/12/18 05/13/18 18:59 06:59 Intake Total 600 ml 500 ml Balance 600 ml 500 ml Intake Oral 600 ml 500 ml # Voids 2 2 Height (Feet): 5 Height (Inches): 3.00 Weight (Pounds): 175 Objective Blind. CV RR Lungs B wheezes!! Abd SNT BS + E No CCE Madison Sifuentes MD May 13, 2018 11:45
--- NOTE | 2018-05-13 11:51 | Nephrology Progress Note ---
Assessment/Plan Plan COPD Exacerbation - oral Steroids, ABX, Pulmonary following. Severe CHF - Increasing UF on HD. Stress test done. Results indicate ischemia. Hold DC!! Tele! Repet HD +UF Transfer to [facility] for coronary angio! Subjective Subjective Still SOB !!! went to see patient again! Objective Objective Last 24 Hour Vital Signs Date Time Temp Pulse Resp B/P (MAP) Pulse Ox O2 Delivery O2 Flow Rate FiO2 05/13/18 11:22 104 22 98 Nasal Cannula 2.0 28 05/13/18 11:19 104 22 98 Nasal Cannula 2.0 28 05/13/18 10:08 98.2 05/13/18 09:38 102 130/70 05/13/18 09:37 102 130/70 05/13/18 09:35 130/70 05/13/18 08:42 98 20 99 Nasal Cannula 2.0 28 05/13/18 08:26 102 20 98 Nasal Cannula 2.0 28 05/13/18 08:26 98 Nasal Cannula 2.0 28 05/13/18 08:26 Nasal Cannula 2.0 28 05/13/18 08:00 98.2 98 18 130/70 (90) 95 05/13/18 04:00 98.1 76 20 118/52 (74) 98 05/13/18 03:25 83 18 99 Nasal Cannula 2.0 28 05/13/18 03:15 86 18 95 Nasal Cannula 2.0 28 05/13/18 00:00 98.2 72 19 100/47 (64) 100 05/12/18 23:56 85 18 100 Nasal Cannula 2.0 28 05/12/18 23:46 72 18 94 Nasal Cannula 2.0 28 05/12/18 21:00 Nasal Cannula 2.0 05/12/18 20:37 83 127/67 05/12/18 20:00 97.7 83 20 127/67 (87) 100 05/12/18 19:51 86 18 99 Nasal Cannula 2.0 28 05/12/18 19:44 Nasal Cannula 2.0 28 05/12/18 19:44 96 Nasal Cannula 2.0 28 05/12/18 19:41 85 18 96 Nasal Cannula 2.0 28 05/12/18 16:00 98.5 86 19 119/76 (90) 98 05/12/18 15:25 78 22 99 Nasal Cannula 2.0 28 05/12/18 15:20 79 20 96 Room Air 21 05/12/18 12:00 97.7 74 18 117/53 (74) 98 Intake and Output 05/12/18 05/13/18 18:59 06:59 Intake Total 600 ml 500 ml Balance 600 ml 500 ml Intake Oral 600 ml 500 ml # Voids 2 2 Height (Feet): 5 Height (Inches): 3.00 Weight (Pounds): 175 Objective Blind. CV RR Lungs B wheezes!!!!! Abd SNT BS + E No CCE Madison Sifuentes MD May 13, 2018 11:51
[2018-05-13] MEDS: Levofloxacin 250mg/D5W 50ml IVPB SCH (12:01)
--- NOTE | 2018-05-13 12:10 | NUR ---
NURSE NOTES: [facility] HD service was called, spoken with Liset, for patient's dialysis ordered for today, will await confirmation.
--- NOTE | 2018-05-13 13:30 | NUR ---
NURSE NOTES: patient has been discharged to home, going by private vehicle accompanied by friend. Taken IV access off, no bleeding after site compression. Patient signed off belongings list and left with all his belongings. Given discharge packet with medication reconciliation, educational pamphlet regarding his condition and his prescription medication. patient was given 1 sheet of prescription medication, pt acknowledged receipt of it. Patient in stable condition and VVSS, given pain medication for headache, no further complaints.
--- NOTE | 2018-05-13 15:30 | NUR ---
NURSE NOTES: relayed results of EKG and troponin, both (-). Dr Sifuentes was informed, and ordered nurse to hold transfer to tele for now, and will recheck after HD is done.
--- NOTE | 2018-05-13 18:50 | NUR ---
NURSE NOTES: [facility] HD RN Tommy told this nurse she has to go to an emergency HD and will be back around 22:00 to dialyse patient.
--- NOTE | 2018-05-13 19:15 | NUR ---
HAND-OFF: Report given to GEORGINA Ramírez.
--- NOTE | 2018-05-13 19:40 | NUR ---
NURSE NOTES: Received patien awake,verbal,resting in bed comfortably without complaints.
[2018-05-13] MEDS: Atorvastatin 20mg tab ORAL SCH (20:39)
[2018-05-13] MEDS: guaiFENesin 100mg/5ml Liq ud ORAL PRN (20:44)
[2018-05-14] MEDS: Zosyn 2.25 gm in D5W 55ml IV SCH ×2 (01:43→11:05)
[2018-05-14] MEDS: Ipratropium 0.02% Inh Soln 2.5ml UD HHN SCH ×4 (03:22→15:20)
--- NOTE | 2018-05-14 03:45 | Progress Note ---
DATE: 05/13/2018 CARDIOLOGY PROGRESS NOTE SUBJECTIVE: The patient is seen and evaluated. She still has episodes of chest tightness. She is still short of breath. The results of her myocardial perfusion scan were discussed. PHYSICAL EXAMINATION: VITAL SIGNS: Blood pressure 113/62, pulse 83, and respirations 18. NECK: Supple. LUNGS: With few rales. CARDIAC: Regular rhythm and rate. Normal S1, S2 with a fourth heart sound. EXTREMITIES: With trace edema. IMPRESSION: 1. Acute on chronic diastolic congestive heart failure. 2. Reversible myocardial ischemia. 3. Ischemic cardiomyopathy. 4. Abnormal myocardial perfusion scan. 5. Hypertensive heart disease. 6. COPD. PLAN: 1. Maximize anti-failure therapy. 2. Continue hemodialysis with ultrafiltration. 3. Maintain anti-platelet and statin drug. 4. Arranging transfer to tertiary care facility for cardiac catheterization. Ashutosh Alfonso M.D. DR: CHRISTIN JOB#: [id number] CC:
[2018-05-14 04:00] VITALS: BP 98/63
[2018-05-14] MEDS: NovoLOG Insulin Flexpen SUBQ SCH ×3 (05:57→16:37)
--- NOTE | 2018-05-14 07:16 | NUR ---
HAND-OFF: Report given to Teresita Arias RN.
[2018-05-14 08:00] VITALS: BP 102/53
[2018-05-14] MEDS: Docusate 100mg cap ORAL SCH (08:13)
[2018-05-14] MEDS: HYDROcodone/Acetamin 7.5/325 tab ORAL PRN ×2 (08:13→14:23)
[2018-05-14] MEDS: Aspirin EC 81mg tab ORAL SCH (08:13)
[2018-05-14] MEDS: Calcium Acetate 667mg Tab ORAL SCH ×2 (08:13→11:51)
[2018-05-14] MEDS: Milk of Magnesia 30ml Ud ORAL SCH (08:14)
[2018-05-14] MEDS: Nephrovite tab (Rena-Vite) ORAL SCH (08:14)
[2018-05-14] MEDS: Sertraline 50mg tab ORAL SCH (08:14)
[2018-05-14] MEDS: Heparin 5000 units/ml inj SUBQ SCH (08:18)
[2018-05-14] MEDS: Metoprolol 25mg tab ORAL SCH (08:36)
[2018-05-14] MEDS: Lisinopril 20mg tab ORAL SCH (08:37)
[2018-05-14] MEDS: guaiFENesin 100mg/5ml Liq ud ORAL PRN (08:50)
--- NOTE | 2018-05-14 10:23 | Pulmonology Progress Note ---
Assessment/Plan Assessment/Plan IMPRESSION: 1. Chronic obstructive pulmonary disease with acute exacerbation. 2. End-stage renal disease 3. Hypertension. 4. Blindness. 5. Diabetes. PLAN respiratory care oxygen HD keep negative follow up for change PO prednisone and taper taper antibiotics dc planning impression, plan, and exam edited and reviewed in detail care discussed with RN Subjective Allergies: Coded Allergies: No Known Allergies (Unverified , 12/01/17) Subjective care noted follow up reviewed stable at present Objective Last 24 Hour Vital Signs Date Time Temp Pulse Resp B/P (MAP) Pulse Ox O2 Delivery O2 Flow Rate FiO2 05/14/18 09:00 Nasal Cannula 2.0 05/14/18 08:43 98.7 05/14/18 08:37 102/53 05/14/18 08:36 98 102/53 05/14/18 08:36 98 102/53 05/14/18 08:00 96.8 98 18 102/53 (69) 99 05/14/18 07:25 98 19 100 Nasal Cannula 2.0 28 05/14/18 07:15 Nasal Cannula 2.0 28 05/14/18 07:15 96 21 97 Nasal Cannula 2.0 28 05/14/18 07:15 97 Nasal Cannula 2.0 28 05/14/18 04:00 98.7 103 18 98/63 (75) 98 05/14/18 03:50 98 Nasal Cannula 2.0 28 05/14/18 03:50 Nasal Cannula 2.0 28 05/14/18 03:32 93 20 99 Nasal Cannula 2.0 28 05/14/18 03:22 82 20 98 Nasal Cannula 2.0 28 05/13/18 23:46 Nasal Cannula 2.0 28 05/13/18 23:45 Nasal Cannula 2.0 28 05/13/18 20:40 83 113/62 05/13/18 20:06 Nasal Cannula 2.0 05/13/18 20:00 98.1 83 18 113/63 (80) 96 05/13/18 19:30 89 20 98 Nasal Cannula 2.0 28 05/13/18 19:29 84 20 97 Nasal Cannula 2.0 28 05/13/18 19:29 Nasal Cannula 2.0 28 05/13/18 19:29 97 Nasal Cannula 2.0 28 05/13/18 16:00 97.3 78 17 115/62 (79) 99 05/13/18 15:34 104 22 97 Nasal Cannula 2.0 28 05/13/18 15:27 109 22 96 Nasal Cannula 2.0 28 05/13/18 12:00 97.7 96 16 122/53 (76) 94 05/13/18 11:22 104 22 98 Nasal Cannula 2.0 28 05/13/18 11:19 104 22 98 Nasal Cannula 2.0 28 Intake and Output 05/13/18 05/14/18 19:00 07:00 Intake Total 760 ml 55 ml Output Total 300 ml Balance 760 ml -245 ml Intake Oral 600 ml IV Total 160 ml 55 ml Output Urine Total 300 ml # Voids 3 2 # Bowel Movements 1 Objective GENERAL: This is an ill-appearing female, appears older than her stated age. HEENT: Fairly negative. Extraocular movements are grossly intact. Oropharynx is moist. NECK: Jugular venous distention minimal. LUNGS: With reduced breath sounds. No expiratory rhonchi or wheezes. CARDIAC: S1 and S2. Regular rate and rhythm without murmurs, rubs, or gallops. ABDOMEN: Soft, nontender, and nondistended. EXTREMITIES: No cyanosis or clubbing. Mild edema. NEUROLOGICAL: Weak, nonfocal, and alert. Laboratory Tests 05/13/18 12:35: Troponin I 0.028 Current Medications Medications (Trade) Dose Ordered Sig/Parmjit Route PRN Reason Start Time Stop Time Status Last Admin Dose Admin Acetaminophen (Tylenol) 650 mg Q6H PRN ORAL Mild Pain (Pain Scale 1-3) 05/09/18 07:15 06/08/18 07:14 Acetaminophen/ Hydrocodone Bitart ([place] 7.5/325) 1 tab Q4H PRN ORAL Moderate Pain (Pain Scale 4-6) 05/09/18 07:15 05/16/18 07:14 05/14/18 08:13 Amlodipine Besylate (Norvasc) 5 mg DAILY ORAL 05/09/18 09:00 06/08/18 08:59 05/13/18 09:38 Aspirin (Ecotrin) 81 mg DAILY ORAL 05/09/18 09:00 06/08/18 08:59 05/14/18 08:13 Atorvastatin Calcium (Lipitor) 20 mg BEDTIME ORAL 05/11/18 21:00 06/08/18 20:59 05/13/18 20:39 Bisacodyl (Dulcolax) 10 mg DAILYPRN PRN RECTAL Constipation 05/09/18 07:15 06/08/18 07:14 05/11/18 21:49 Calcium Acetate (Phoslo) 667 mg THREE TIMES A DAY ORAL 05/09/18 18:00 06/08/18 17:59 05/14/18 08:13 Dextrose (Dextrose 50%) 25 ml Q30M PRN IV Hypoglycemia 05/09/18 07:15 06/08/18 07:14 Dextrose (Dextrose 50%) 50 ml Q30M PRN IV Hypoglycemia 05/09/18 07:15 06/08/18 07:14 Diphenhydramine HCl (Benadryl) 25 mg Q6H PRN ORAL Itching 05/09/18 07:15 06/08/18 07:14 05/11/18 16:45 Docusate Sodium (Colace) 100 mg TWICE A DAY ORAL 05/09/18 09:00 06/08/18 08:59 05/14/18 08:13 Famotidine (Pepcid) 20 mg DAILY ORAL 05/09/18 09:00 06/08/18 08:59 05/14/18 08:14 Glucagon (Glucagon) 1 mg DAILYPRN PRN IM blood glucose <60 05/09/18 08:15 06/08/18 08:14 Guaifenesin (Robitussin) 200 mg Q4H PRN ORAL For Cough 05/13/18 12:15 06/12/18 12:14 05/14/18 08:50 Heparin Sodium (Porcine) (Heparin 5000 units/ml) 5,000 units EVERY 12 HOURS SUBQ 05/09/18 09:00 06/08/18 08:59 05/14/18 08:18 Heparin Sodium (Porcine) (Heparin Sod 1000 units/ml 10ml) 2,000 unit ONCE PRN IV dialysis 05/14/18 12:00 05/14/18 23:59 Insulin Aspart (NovoLOG) BEFORE MEALS AND HS SUBQ 05/09/18 11:30 06/08/18 11:29 05/14/18 05:57 Ipratropium [place] (Atrovent) 500 mcg Q4HRT HHN 05/10/18 15:00 05/15/18 14:59 05/14/18 07:15 Levofloxacin 50 ml @ 50 mls/hr Q48H IVPB 05/11/18 10:00 05/18/18 09:59 05/13/18 12:01 Lisinopril (Prinivil) 20 mg DAILY ORAL 05/12/18 09:00 06/11/18 08:59 05/13/18 09:35 Loratadine (Claritin 10mg) 10 mg DAILYPRN PRN ORAL runny nose, nasal irritation, 05/09/18 07:15 06/08/18 07:14 05/14/18 08:21 Magnesium Hydroxide (Mom) 15 ml DAILY ORAL 05/09/18 09:00 06/08/18 08:59 05/14/18 08:14 Metoprolol Tartrate (Lopressor) 25 mg EVERY 12 HOURS ORAL 05/09/18 09:00 06/08/18 08:59 05/13/18 09:37 Piperacillin Sod/ Tazobactam Sod 2.25 gm/Dextrose 55 ml @ 110 mls/hr Q8H IV 05/12/18 18:00 05/19/18 17:59 05/14/18 01:43 Prednisone (predniSONE) 40 mg DAILY ORAL 05/11/18 09:00 06/10/18 08:59 05/14/18 08:15 Sertraline HCl (Zoloft) 50 mg DAILY ORAL 05/09/18 09:00 06/08/18 08:59 05/14/18 08:14 Simethicone (Mylicon) 80 mg Q8H PRN ORAL GAS PAIN 05/09/18 07:15 06/08/18 07:14 05/14/18 04:04 Sodium Chloride 1,000 ml @ 500 mls/hr Q2H PRN IVLG sbp<90 during hd 05/14/18 11:54 05/14/18 23:59 Vitamin B Complex/ Vit C/Folic Acid (Nephrovite) 1 tab DAILY ORAL 05/09/18 09:00 06/08/18 08:59 05/14/18 08:14 Zolpidem Tartrate (Ambien) 5 mg HSPRN PRN ORAL Insomnia 05/09/18 07:15 05/16/18 07:14 05/13/18 01:58 Fabian Centeno MD May 14, 2018 10:23
[2018-05-14 12:00] VITALS: BP 98/59
[2018-05-14] MEDS ORDERED: Heparin Sod 1000 units/ml 10ml IV PRN (12:00)
--- NOTE | 2018-05-14 13:18 | Nephrology Progress Note ---
Assessment/Plan Plan COPD Exacerbation - oral Steroids, ABX, Pulmonary following. Severe CHF - Increasing UF on HD. Stress test done. Results indicate ischemia. Hold DC!! Tele! Repet HD +UF Transfer to [facility] for coronary angio! No beds @ [facility] DW pt's daughter. DC to SNF. Send to [facility] after HD tomorrow. Subjective Subjective No SOB. No CP. Objective Objective Last 24 Hour Vital Signs Date Time Temp Pulse Resp B/P (MAP) Pulse Ox O2 Delivery O2 Flow Rate FiO2 05/14/18 12:00 97.5 91 17 98/59 (72) 93 05/14/18 11:33 94 18 100 Nasal Cannula 2.0 28 05/14/18 11:22 96 20 97 Nasal Cannula 2.0 28 05/14/18 09:00 Nasal Cannula 2.0 05/14/18 08:43 98.7 05/14/18 08:37 102/53 05/14/18 08:36 98 102/53 05/14/18 08:36 98 102/53 05/14/18 08:00 96.8 98 18 102/53 (69) 99 05/14/18 07:25 98 19 100 Nasal Cannula 2.0 28 05/14/18 07:15 Nasal Cannula 2.0 28 05/14/18 07:15 96 21 97 Nasal Cannula 2.0 28 05/14/18 07:15 97 Nasal Cannula 2.0 28 05/14/18 04:00 98.7 103 18 98/63 (75) 98 05/14/18 03:50 98 Nasal Cannula 2.0 28 05/14/18 03:50 Nasal Cannula 2.0 28 05/14/18 03:32 93 20 99 Nasal Cannula 2.0 28 05/14/18 03:22 82 20 98 Nasal Cannula 2.0 28 05/13/18 23:46 Nasal Cannula 2.0 28 05/13/18 23:45 Nasal Cannula 2.0 28 05/13/18 20:40 83 113/62 05/13/18 20:06 Nasal Cannula 2.0 05/13/18 20:00 98.1 83 18 113/63 (80) 96 05/13/18 19:30 89 20 98 Nasal Cannula 2.0 28 05/13/18 19:29 84 20 97 Nasal Cannula 2.0 28 05/13/18 19:29 Nasal Cannula 2.0 28 05/13/18 19:29 97 Nasal Cannula 2.0 28 05/13/18 16:00 97.3 78 17 115/62 (79) 99 05/13/18 15:34 104 22 97 Nasal Cannula 2.0 28 05/13/18 15:27 109 22 96 Nasal Cannula 2.0 28 Intake and Output 05/13/18 05/14/18 19:00 07:00 Intake Total 760 ml 55 ml Output Total 300 ml Balance 760 ml -245 ml Intake Oral 600 ml IV Total 160 ml 55 ml Output Urine Total 300 ml # Voids 3 2 # Bowel Movements 1 Height (Feet): 5 Height (Inches): 3.00 Weight (Pounds): 193 Objective Blind. CV RR Lungs B wheezes!!!!! Abd SNT BS + E No CCE Madison Sifuentes MD May 14, 2018 13:18
--- NOTE | 2018-05-14 14:53 | NUR ---
NURSE NOTES: contacted [facility], spoken to Yvrose for report on patient to be transferred back to them. [facility]vrose told RN Marriage Performer Rivera is busy, and will call us when he's available.
[2018-05-14 16:00] VITALS: BP 106/67
--- NOTE | 2018-05-14 17:30 | NUR ---
NURSE NOTES: patient has been discharged back to [facility], report given to RN supervisor rough end kandi Stafford left with [facility]. Taken IV access off, no bleeding after site compression. Patient left with all her belongings and signed off belongings list. Given discharge packet with medication reconciliation to ambulance staff. Patient in stable condition and VVSS, no complaint of pain or discomfort.
--- NOTE | 2018-05-14 21:30 | Progress Note ---
DATE: 05/14/2018 CARDIOLOGY PROGRESS NOTE SUBJECTIVE: The patient is less short of breath today and less congested. She still has congestive heart failure. She had ischemia noted on her myocardial perfusion scan. OBJECTIVE: VITAL SIGNS: Blood pressure 98/59, pulse rate 91, and respiratory rate 17. LUNGS: With few rhonchi. CARDIAC: Regular rhythm and rate. Normal S1 and S2 with a 1/6 systolic apical murmur. ABDOMEN: Soft. EXTREMITIES: Trace edema. IMPRESSION: 1. Acute on chronic diastolic and systolic congestive heart failure. 2. Ischemic cardiomyopathy with reversible ischemia. 3. COPD exacerbation. 4. End-stage renal disease. PLAN: 1. Blood pressure control. 2. Additional antianginal therapy and ultrafiltration. 3. We will need to pursue coronary angiography for revascularization and adjust therapy further thereafter. Discussed with Dr. Sifuentes. 4. Discharge plan to detention facility with subsequent admission. 5. Plan for cardiac catheterization at a tertiary care hospital. Ashutosh Alfonso M.D. DR: MANDY JOB#: [id number] CC: CHERYL
--- NOTE | 2018-05-15 21:51 | Diagnostic Imaging Report ---
APPROVED REPORT CPT Code: 57567 Symptoms Comments: Hx of occluded AVF RIGHT UPPER EXTREMITY: Color flow duplex sonography reveals patency of the subclavian, axillary brachial, radial and ulnar arteries. A mild (40-49%) stenosis is seen in the proximal brachial artery. Arterio-venous fistula: Imaging reveals patency of the arterio-venous fistula, the brachial artery to the cephalic vein (stented), at the upper arm level. The venous outflow is widely patent. Subclavian artery : 190 cm/s Monophasic Axillary artery: 125 cm/s Monophasic Proximal brachial artery: 224 cm/s Monophasic Proximal anastomosis: 0.42 cm, 225 cm/s Monophasic Mid Graft: 210 cm/s Monophasic Brachial artery: distal 66 cm/s Biphasic Radial artery: 54 cm/s Triphasic Ulnar artery: 23 cm/s Biphasic Stented cephalic outflow vein is patent.
--- NOTE | 2018-05-15 23:15 | Consultation ---
DATE OF CONSULTATION: 05/09/2018 CONSULTING PHYSICIAN: Amarjit Dyson M.D. REFERRING PHYSICIAN: Madison Ayala M.D. REASON FOR CONSULTATION: Left arm AV shunt evaluation. HISTORY OF PRESENT ILLNESS: This is a 68-year-old female, who suffers from end-stage renal failure, on hemodialysis, diabetes mellitus, hypertension. The patient has a left arm AV shunt which is maturing well. She has a chest PermCath. Vascular surgery is consulted for further evaluation. The patient currently has no other complaints. PAST MEDICAL HISTORY: Diabetes mellitus, hypertension, partial blindness, left arm AV shunt placement, history of interventions, tunneled Perma catheter, COPD. MEDICATIONS: See attached MAR. FAMILY HISTORY: Unremarkable. SYSTEM REVIEW: CARDIOVASCULAR: No history of chest pain or palpitation. PULMONARY: Does have intermittent shortness of breath and cough GASTROINTESTINAL: No history of abdominal pain, constipation, or diarrhea. GENITOURINARY: No urinary symptoms. NEUROLOGIC: No history of strokes or seizures. PHYSICAL EXAMINATION: GENERAL: The patient is afebrile. VITAL SIGNS: Temperature 97, heart rate 78, blood pressure 140/70. LUNGS: The patient has rhonchi bilaterally. HEART: Regular rate and rhythm.. ABDOMEN: Soft and nontender. EXTREMITIES: She has palpable left arm AV shunt thrill. Chest PermCath is still dry and intact. Feet are warm and intact Dopplers bilaterally. IMPRESSION: 1. End-stage renal failure, on hemodialysis. 2. Dialysis through the PermCath. 3. History of diabetes mellitus, blindness, and hypertension. PLAN AND RECOMMENDATIONS: We will obtain left arm AV shunt duplex. We will have the left arm AV shunt access use for dialysis and once successful the PermCath will be removed. Amarjit Dyson M.D. DR: Gerhard JOB#: [id number] CC: Amarjit Dyson M.D.; Fax#: [phone] MADISON AYALA M.D. ; FAX#: [phone] [place]
--- NOTE | 2018-05-16 12:26 | Discharge Summary ---
Discharge Summary Discharge Summary _ DATE OF ADMISSION: 05/08/2018 DATE OF DISCHARGE: 03/13/2019 DISCHARGED BY: Dr. Sifuentes REASON FOR ADMISSION: 68 years old female with past medical history of end-stage renal disease, on hemodialysis, systolic and diastolic congestive heart failure, COPD, type 2 diabetes mellitus with diabetic retinopathy with blindness, diabetic neuropathy , anemia of chronic kidney disease, liver cirrhosis, DNR status , resident of residential facility, complained of extreme shortness of breath despite hemodialysis. Repeated breathing treatment with bronchodilator provided at the facility, however patient continued to complain of shortness of breath and subsequently was sent by paramedics to emergency room for evaluation. Laboratory workup revealed no leukocytosis, hemoglobin 11.9, hematocrit 36.8. Troponin - 0.043. BUN 39, creatinine 6.9, consistent with known history of end-stage renal disease. Electrolytes and LFTs stable. Albumin 3.6. Chest x-ray revealed borderline cardiomegaly , no definite acute cardiopulmonary pathology. Patient subsequently was admitted for further management. CONSULTANTS: staff physical therapist pulmonary Dr. Centeno surgeon Dr. Dyson HOSPITAL COURSE: Patient admitted Supplemental oxygen provided as needed to keep pulse oximetry above 92%. Pulmonary toilet provided. Wire Stripping Machine Operator followed. Patient started on intravenous steroids which were gradually tapered and changed to oral prednisone prior to discharge Patient started on empiric antibiotics. Blood cultures were negative. Venous duplex bilateral lower extremity revealed no evidence of acute DVT. Pulse oximetry was stable on 2 L of oxygen via nasal cannula. Mathematical Sciences Professor closely followed. Repeated troponin were negative. Lipid panel revealed elevated triglyceride 201 with normal cholesterol and LDL. Echocardiogram revealed global hypokinesis with anteroseptal akinesis. Mild left ventricular hypertrophy noted. Right ventricular systolic pressure of 25. Patient subsequently undergone myocardial perfusion stress test which revealed very questionable small focal area of reversible decreased perfusion, consistent with ischemia if real, in the anterior septal wall near the apex. Calculated post stress ejection fraction 41%. Mild global as well as more focal septal hypokinesis and mild left ventricular chamber dilatation noted. Patient initially started on antiplatelet therapy with aspirin . Statin was continued. Patient educated on low-fat low-cholesterol diabetic diet. Blood sugar was managed with sliding scale of insulin. DVT and GI prophylaxis provided. Anti-failure, antihypertensive and antianginal therapy were optimized as per cardiology. Cardiology recommended coronary angiogram for revascularization to be arranged in the tertiary care hospital. Pain management was addressed, and pain was controlled. Hemodialysis with ultrafiltration provided. Volumes, renal parameters and electrolytes were closely monitored . Patient require transfer to tertiary care facility for cardiac catheterization. Vascular surgeon seen and evaluated patient. He recommended duplex of arteriovenous shunt along with CT angiogram of the chest and echocardiogram. Arterial duplex right upper extremity revealed patency of the subclavian, axillary, brachial, radial, and ulnar arteries. Mild stenosis noted in proximal brachial artery. Stented cephalic outflow vein was patent. Imaging revealed patency of the arteriovenous fistula . The venous outflow was widely patent. Blood sugar was managed with sliding scale of insulin. DVT and GI prophylaxis provided. Supportive care provided. Bowel regimen instituted. Hemoglobin and hematocrit were closely monitored and remained stable Fall precaution maintained. No beds were available at [facility]. Patient was sent to the residential facility with plan to send him tomorrow after hemodialysis to [facility] for coronary angiogram. FINAL DIAGNOSES: COPD with acute exacerbation Acute on chronic diastolic and systolic congestive heart failure Ischemic cardiomyopathy with reversible myocardial ischemia End-stage renal disease, on hemodialysis Hypertensive heart disease Type 2 diabetes mellitus Diabetic retinopathy with blindness Diabetic neuropathy Anemia of chronic kidney disease Liver cirrhosis DNR status DISCHARGE MEDICATIONS: See Medication Reconciliation list. DISCHARGE INSTRUCTIONS: Patient was discharged to the residential facility. Tomorrow after hemodialysis patient will be sent to [facility] for angiogram I have been assigned to dictate discharge summary for this account. I was not involved in the patient's management. Verna Wade NP May 16, 2018 12:26
--- NOTE | 2018-05-17 16:09 | Cardiology Report ---
APPROVED REPORT EKG Measurement Heart [id number] Normal sinus rhythm Possible Left atrial enlargement Septal infarct, age undetermined Abnormal ECG
== END 2018-05-14 17:45 | DRG 190 ==
LOC: EDBD 22:38 → EMR 22:48 → EDBEDREQ 23:29 → 4E 23:46 → EDBEDREQ 05-09 00:17
PROC: 5A1D70Z Performance of Urinary Filtration, Intermittent, Less than 6 Hours Per Day (ICD-10-PCS; principal; 2018-05-08)
DX: J44.1 Chronic obstructive pulmonary disease with (acute) exacerbation (principal); N18.6 End stage renal disease; I50.43 Acute on chronic combined systolic (congestive) and diastolic (congestive) heart failure; I13.2 Hypertensive heart and chronic kidney disease with heart failure and with stage 5 chronic kidney disease, or end stage renal disease; E11.22 Type 2 diabetes mellitus with diabetic chronic kidney disease; Z99.2 Dependence on renal dialysis; D63.1 Anemia in chronic kidney disease; I25.5 Ischemic cardiomyopathy; E11.319 Type 2 diabetes mellitus with unspecified diabetic retinopathy without macular edema; E11.40 Type 2 diabetes mellitus with diabetic neuropathy, unspecified; K74.60 Unspecified cirrhosis of liver; Z66 Do not resuscitate; H54.8 Legal blindness, as defined in USA; Z79.4 Long term (current) use of insulin; I35.1 Nonrheumatic aortic (valve) insufficiency; I25.9 Chronic ischemic heart disease, unspecified
CPT/HCPCS: 36415; 71045; 78452; 80048; 80053; 80061; 82550; 82553; 82962; 83036; 83605; 84484; 85025; 87040; 87081; 93005; 93017; 93306; 93931; 94640; 94664; 94760; 96365; 96368; 96375; 99285; J1815; J2785